=== PATIENT | female | born 1940 | race Caucasian/White ===

== ENCOUNTER 2017-06-18 02:57 | Inpatient (IN) | payer OTHER ==
[2017-06-18] MEDS: NS 1000 ML 1,000 ML IV SCH (05:02)
[2017-06-18] MEDS: SNACK - Diabetic Appropriate PO SCH ×2 (05:02→22:01)
[2017-06-18 06:00] LABS: BASOPHILS # (AUTO) 0.1 X10^3/uL (0.0-0.1); BASOPHILS % (AUTO) 0.6 % (0.2-1.0); EOSINOPHILS % (AUTO) 0.2 % (0.9-2.9); HEMATOCRIT 37.7 % (36.0-47.0); HEMOGLOBIN 12.8 g/dL (12.0-16.0); LYMPHOCYTES # (AUTO) 1.7 X10^3/uL (1.3-2.9); LYMPHOCYTES % (AUTO) 12.1 % (21.0-51.0); MEAN CORPUSCULAR HEMOGLOBIN 30.2 pg (27.0-34.0); MEAN CORPUSCULAR HGB CONC 33.8 g/dL (33.0-35.0); MEAN CORPUSCULAR VOLUME 89.3 fL (80.0-100.0); MEAN PLATELET VOLUME 11.2 fL (7.4-11.0); MONOCYTES # (AUTO) 1.2 x10^3/uL (0.3-0.8); MONOCYTES % (AUTO) 8.5 % (0.0-13.0); NEUTROPHILS # (AUTO) 11.1 x10^3/uL (2.2-4.8); NEUTROPHILS % (AUTO) 78.6 % (42.0-75.0); PLATELET COUNT 304 X10^3/uL (150.0-450.0); RED BLOOD COUNT 4.23 X10^6/uL (3.5-5.4); RED CELL DISTRIBUTION WIDTH 13.7 % (11.6-16.5); WHITE BLOOD COUNT 14.1 X10^3/uL (3.6-10.0)
[2017-06-18 06:22] LABS: ALANINE AMINOTRANSFERASE 23 Units/L (12-78); ALBUMIN 2.9 g/dL (3.4-5.0); ALKALINE PHOSPHATASE 76 Units/L (46-116); ASPARTATE AMINO TRANSFERASE 14 Units/L (15-37); BLOOD UREA NITROGEN 21 mg/dL (7-18); CALCIUM 7.9 mg/dL (8.5-10.1); CHLORIDE 105 mmol/L (98-107); COR CA(FOR HYPOALB) 8.8 mg/dL (8.5-10.1); COR NA(FOR HYPERGLY) 144 mmol/L (136-145); CREATININE 0.72 mg/dL (0.55-1.02); SODIUM 140 mmol/L (136-145); TOTAL PROTEIN 6.8 g/dL (6.4-8.2); eGFR BLACK RACES > 60 (>60); eGFR NON BLACK RACES > 60 (>60)
--- NOTE | 2017-06-18 07:31 | RAD ---
HISTORY: 77-year-old female with shortness of breath. Study: Frontal view of the chest. Comparison: None. Findings: The trachea is midline. The cardiac silhouette is unremarkable with prominent perihilar lung marking s and interstitium. The lungs are clear without focal consolidation, effusion or pneumothorax. Soft tissues are unremarkable. Osseous structures are unremarkable. IMPRESSION: 1. No acute cardiopulmonary disease. Reported By:
[2017-06-18] MEDS ORDERED: BUTT CREAM (COMPOUND) ONE (09:38)
--- NOTE | 2017-06-18 10:21 | DR.H&P ---
H&P - History & Physical for Day of: H&P Date: 06/18/18 - Chief Complaint Chief Complaint: FALL RIGHT UPPER ARM PAIN, RIGHT KNEE PAIN - Allergies Allergies/Adverse Reactions: Allergies Allergy/AdvReac Type Severity Reaction Status Date / Time No Known Drug Allergies Allergy Verified 06/18/17 04:06 - History of Present Illness History of Present Illness: 77WF STATES SHE FELL WHILE RUNNING TO ANSWER TELEPHONE AND TRIPPED OVER A BOX LANDING ON RIGHT KNEE AND RIGHT ARM. PT HAS RUE EDEMA AND PAIN. PT WAS SENT FOR [facility] FOR ORTHO CONSULT, WITH RIGHT HUMERUS FX. PT HAS PMH OF DM, OA. PT ADMITTED FOR PAIN CONTROL AND ORTHO CONSULT - Past Surgical History Surgical History: Hysterectomy, Ortho Surgery, Spleenectomy Additional Surgical History: SPLEENECTOMY - Social History Does patient currently use any type of tobacco product: No Have you used tobacco products in the last 12 months: No Type of Tobacco Use: None Does any household member use tobacco: No Alcohol Use: None Drug Use: None - Medications Home Medications: Insulin NPL/Lispro 75/25 [HumaLOG MIX 75/25 INSULIN 10 ML VIAL *] 10 units SQ DAILY 06/18/17 [History Confirmed 06/18/17] - Review of Systems Constitutional: No Symptoms Reported Eyes: No Symptoms Reported ENT: No Symptoms Reported Respiratory: No Symptoms Reported Cardiovascular: No Symptoms Reported. denies: Edema Gastrointestinal: No Symptoms Reported Genitourinary: No Symptoms Reported Musculoskeletal: Shoulder Pain, Arm Pain, Leg Pain Skin: Rash (RED RASH TO INGUINAL AREA) Neurological: No Symptoms Reported - Physical Exam Vital Signs: Temperature 98.0 F Pulse Rate [Left Brachial] 73 Respiratory Rate 16 Blood Pressure [Left Arm] 175/72 O2 Sat by Pulse Oximetry 97 Oriented: Normal Eyes: Normal Ear: Normal Nose: Normal Throat: Normal Respiratory: Clear Throughout Cardiovascular: Normal : Normal Auscultation: Bowel Sounds: Normal Palpation: Normal Tenderness: Normal Skin: Rash (RED MACULAR PAPULAR RASH TO BILATERAL INGUINAL AREAS) Musculoskeletal: Right, Shoulder, Arm, Knee, Swelling, Tender Psychiatric: Anxiety Affect: Anxious Speech Pattern: Clear, Appropriate - Assessment/Plan (1) Right humeral fracture Status: Acute Plan: PAIN CONTROL, ORTHO CONSULT (2) Fall Status: Acute (3) Diabetes Status: Acute Plan: SSI
--- NOTE | 2017-06-18 12:49 | RAD ---
SHOULDER RADIOGRAPHS CLINICAL HISTORY: 77-year-old female with right humeral fracture. COMPARISON: None. FINDINGS: Three views of the right shoulder demonstrate comminuted fracture through the surgical neck of the right humerus with mild posterior displacement and subtle impaction. There is significant deg enerative changes about the AC joint. Right lung is clear. Soft tissues demonstrate expected edema ab out the fracture site. IMPRESSION: Comminuted fracture through the surgical neck of the right humerus with surrounding edema. Reported By:
--- NOTE | 2017-06-18 12:53 | RAD ---
KNEE RADIOGRAPHS CLINICAL HISTORY: 77-year-old female status post fall. COMPARISON: None. FINDINGS: Three views of the right knee demonstrate subtle cortical irregularity along the medial asp ect of the tibial plateau suggesting impaction fracture. There is diffuse osteopenia. Medial lateral joint spaces are overall preserved. Mild tricompartmental degenerative change. Small suprapatellar mary alice int effusion with significant soft tissue edema about the knee. Vascular calcifications are present. IMPRESSION: Findings concerning for medial tibial plateau fracture with surrounding edema and small suprapatellar joint effusion. Recommend CT of the right knee for complete evaluation. Reported By:
--- NOTE | 2017-06-18 13:02 | CT ---
HISTORY: 77-year-old female status post fall with humeral fracture. Study: [facility] protocol CT of the right upper extremity. Comparison: Right upper extremity radiographs this date. Technique: Multiple contiguous axial images of the right upper extremity are obtained in bone and sof t tissue windows with coronal and sagittal reformats provided. Findings: Comminuted impacted fracture of the right humerus through the surgical neck with slight medial displa cement of the distal fracture fragment and moderate hemarthrosis. No dislocation. Soft tissue edema s urrounds fracture site. Remaining imaged osseous structures of the shoulder and right thorax are inta ct. Degenerative changes about the AC joint. IMPRESSION: Comminuted impacted fracture of the right humerus through the surgical neck with moderate sized hemar throsis with no dislocation. Soft tissue edema is present. Reported By:
[2017-06-18] MEDS: KENALOG CREAM TOP SCH ×2 (15:30→22:02)
[2017-06-18] MEDS: NYSTATIN POWDER TOP SCH ×2 (15:30→22:01)
[2017-06-18] MEDS: HumuLIN R SC PRN ×2 (17:02→21:51)
[2017-06-18 17:24] LABS: BILIRUBIN,URINE NEGATIVE (NEGATIVE); BLOOD/HEMOGLOBIN,URINE 3+ (NEGATIVE); GLUCOSE, URINE 3+ (NEGATIVE); KETONES,URINE 1+ (NEGATIVE); LEUKOCYTE ESTERASE ,URINE 3+ (NEGATIVE); NITRITES,URINE POSITIVE (NEGATIVE); PROTEIN,URINE 3+ (NEGATIVE); UROBILINOGEN,URINE NORMAL (NORMAL)
[2017-06-18 17:26] LABS: APPEARANCE,URINE CLOUDY (CLEAR); COLOR,URINE YELLOW (YELLOW)
[2017-06-18 17:39] LABS: BACTERIA,URINE 1+ /HPF (NEGATIVE); MUCUS,URINE FEW /HPF (NEGATIVE); SQUAMOUS EPITHELIAL CELL,UR FEW /HPF (NEGATIVE)
[2017-06-18] MEDS ORDERED: K-RIDER 10 MEQ/NS 100 ML 10 MEQ/100 ML BAG IV PRN (19:03)
[2017-06-18] MEDS ORDERED: K-LYTE EFFERVESCENT PO PRN (19:03)
[2017-06-18] MEDS ORDERED: POTASSIUM CHL 60 MEQ/NS 0.45% 500 ML IV PRN (19:03)
[2017-06-18] MEDS ORDERED: POTASSIUM CHL 40 MEQ/NS 0.45% 500 ML IV PRN (19:03)
[2017-06-18] MEDS ORDERED: POTASSIUM CHLORIDE LIQ 20 MEQ UDC PO PRN (19:03)
[2017-06-18] MEDS: PERCOCET TAB 5/325 MG PO PRN (21:45)
--- NOTE | 2017-06-18 22:21 | CT ---
CT right knee without contrast Indication: Possible medial tibial plateau fracture seen on radiography. Technique: Helical images through the right knee without contrast. Coronal and sagittal reformats pro vided. Findings: There is lipohemarthrosis with fat and hemorrhage seen in the suprapatellar pouch. Advanced osteopenia and vascular calcifications noted. Mild patellofemoral and femorotibial degenerative frey ges noted. There is fracture of the distal femur, minimally displaced involving the intercondylar not ch and trochlea see coronal image 28 through 15. Lucency is also seen on axial image 36. Hemorrhage i s seen within the bone marrow along the fracture, see axial image 30. Within the limits of a noncontrast study, the menisci, cruciate ligaments and extensor mechanism appe ar intact. Collateral ligaments appear normal. Impression: 1. Distal femur fracture involving the intercondylar notch and lateral femoral condyles at the articu lar surface of the trochlea, with lipohemarthrosis. 2. Tibial plateau appears intact. Degenerative change, osteopenia, vascular plaque and other findings as above. Orthopedic surgery follow-up recommended. MR imaging may be needed to better characterize the nearly occult distal femur fracture Reported By:
[2017-06-19] MEDS: NS 1000 ML 1,000 ML IV SCH ×2 (00:34→12:31)
[2017-06-19] MEDS: KENALOG CREAM TOP SCH ×3 (05:11→21:31)
[2017-06-19] MEDS: MAGNESIUM SULFATE 1 GM/100 mL PREMIX 1 GM/100 ML BAG IV PRN ×2 (05:38→06:36)
[2017-06-19 07:11] LABS: BASOPHILS % (AUTO) 0.4 % (0.2-1.0); EOSINOPHILS # (AUTO) 0.4 x10^3/uL (0.0-0.2); EOSINOPHILS % (AUTO) 2.9 % (0.9-2.9); HEMATOCRIT 34.2 % (36.0-47.0); HEMOGLOBIN 11.4 g/dL (12.0-16.0); LYMPHOCYTES # (AUTO) 2.2 X10^3/uL (1.3-2.9); LYMPHOCYTES % (AUTO) 17.6 % (21.0-51.0); MEAN CORPUSCULAR HGB CONC 33.3 g/dL (33.0-35.0); MEAN CORPUSCULAR VOLUME 90.1 fL (80.0-100.0); MEAN PLATELET VOLUME 10.7 fL (7.4-11.0); MONOCYTES # (AUTO) 1.5 x10^3/uL (0.3-0.8); MONOCYTES % (AUTO) 11.6 % (0.0-13.0); NEUTROPHILS # (AUTO) 8.5 x10^3/uL (2.2-4.8); NEUTROPHILS % (AUTO) 67.5 % (42.0-75.0); PLATELET COUNT 258 X10^3/uL (150.0-450.0); RED BLOOD COUNT 3.79 X10^6/uL (3.5-5.4); WHITE BLOOD COUNT 12.6 X10^3/uL (3.6-10.0)
[2017-06-19 07:19] LABS: ALANINE AMINOTRANSFERASE 19 Units/L (12-78); ALBUMIN 2.6 g/dL (3.4-5.0); ALKALINE PHOSPHATASE 68 Units/L (46-116); ASPARTATE AMINO TRANSFERASE 13 Units/L (15-37); BLOOD UREA NITROGEN 15 mg/dL (7-18); CALCIUM 7.6 mg/dL (8.5-10.1); CARBON DIOXIDE 23.7 mmol/L (21-32); CHLORIDE 107 mmol/L (98-107); COR CA(FOR HYPOALB) 8.7 mg/dL (8.5-10.1); COR NA(FOR HYPERGLY) 141 mmol/L (136-145); CREATININE 0.62 mg/dL (0.55-1.02); SODIUM 139 mmol/L (136-145); TOTAL PROTEIN 6.4 g/dL (6.4-8.2); eGFR BLACK RACES > 60 (>60); eGFR NON BLACK RACES > 60 (>60)
[2017-06-19] MEDS ORDERED: ANCEF 1 GM IV PREMIX* 1 GM/50 ML BAG IV ONE ×2 (07:22→08:09)
[2017-06-19] MEDS ORDERED: LR 1000 ML IV 1,000 ML IV ONE (07:22)
[2017-06-19] MEDS ORDERED: FENTANYL INJ 250 mcg ONE (07:31)
[2017-06-19] MEDS ORDERED: MARCAINE 0.25% INJ ONE (07:32)
[2017-06-19] MEDS ORDERED: XYLOCAINE 1% and EPINEPHRINE 1:100,000 ONE (07:32)
[2017-06-19] MEDS ORDERED: ANCEF VIAL 1 GM ONE (08:08)
[2017-06-19] MEDS ORDERED: BACTROBAN OINT ONE (08:58)
[2017-06-19 09:05] VITALS: BMI 28.3
[2017-06-19] MEDS ORDERED: NS IRRIGATION 1000 ML 1,000 ML with BACITRACIN VIAL 50,000 UNT IR ONE ×2 (09:08)
[2017-06-19] MEDS ORDERED: ROBINUL ONE (09:09)
[2017-06-19] MEDS ORDERED: QUELICIN (OR ANECTINE) ONE (09:09)
[2017-06-19] MEDS ORDERED: DIPRIVAN VIAL ONE (09:09)
[2017-06-19] MEDS ORDERED: ZOFRAN INJ 4 MG VIAL ONE (09:09)
[2017-06-19] MEDS ORDERED: NEOSTIGMINE INJ ONE (09:09)
[2017-06-19] MEDS ORDERED: NORCURON INJ 10 MG VIAL ONE (09:09)
[2017-06-19] MEDS ORDERED: ULTANE GAS IN ONE (09:09)
[2017-06-19] MEDS ORDERED: XYLOCAINE 2 % (PLAIN) ONE (09:09)
[2017-06-19] MEDS: NYSTATIN POWDER TOP SCH ×3 (10:31→21:31)
--- NOTE | 2017-06-19 11:18 | DR.CONSULT ---
Consult - Consultation for Day of: Date: 06/19/17 - Chief Complaint Chief Complaint: rt shoulder fracture - Allergies Allergies/Adverse Reactions: Allergies Allergy/AdvReac Type Severity Reaction Status Date / Time No Known Drug Allergies Allergy Verified 06/18/17 04:06 - History of Present Illness History of Present Illness: h/o fall and rt shoulder fracture. seen in ER and consult placed for me. - Past Surgical History Surgical History: Hysterectomy, Ortho Surgery, Spleenectomy Additional Surgical History: SPLEENECTOMY - Social History Does patient currently use any type of tobacco product: No Have you used tobacco products in the last 12 months: No Type of Tobacco Use: None Does any household member use tobacco: No Alcohol Use: None Drug Use: None - Medications Home Medications: Insulin NPL/Lispro 75/25 [HumaLOG MIX 75/25 INSULIN 10 ML VIAL *] 10 units SQ DAILY 06/18/17 [History Confirmed 06/18/17] - Physical Exam Vital Signs: Temperature 98.6 F Pulse Rate [Left Brachial] 81 Respiratory Rate 20 Blood Pressure [Left Arm] 184/74 O2 Sat by Pulse Oximetry 95 Musculoskeletal: Right, Shoulder, Swelling, Tender, Instability, Crepitance - Plan Plan: ORIF tomorrow. rt proxial humerus fracture. distal femur - conservative management.
[2017-06-19] MEDS ORDERED: ZOFRAN INJ 4 MG VIAL IVP PRN (11:20)
[2017-06-19] MEDS ORDERED: PHENERGAN INJ 25 MG IVP PRN (11:20)
[2017-06-19] MEDS ORDERED: BENADRYL INJ 50 MG VIAL IVP PRN (11:20)
[2017-06-19] MEDS ORDERED: REGLAN INJ 10 MG VIAL IVP PRN (11:20)
[2017-06-19] MEDS ORDERED: DILAUDID INJ IVP PRN (11:20)
[2017-06-19] MEDS: ROCEPHIN VIAL 1 GM 1 GM in NS 100 ML IV + SPIKE MINIBAG* 100 ML IV SCH ×2 (11:50→12:31)
[2017-06-19] MEDS: MORPHINE SULFATE INJ 2 MG INJ IVP PRN ×2 (12:31→18:05)
--- NOTE | 2017-06-19 13:12 | RAD ---
Exam: Right shoulder three views History: Comminuted fracture involving the proximal right humerus Comparison: Previous right shoulder radiographs from 06/18/2017. Findings: Patient is status post OR high calf of comminuted fracture involving the proximal right humerus. A sc rew and plate fixation device at traverses the fracture site laterally. Skin sharon overlie the shou lder as well. Impression: Status post ORIF of comminuted fracture involving the proximal right humerus. Reported By:
[2017-06-19] MEDS: HumuLIN R SC PRN ×2 (14:10→18:05)
[2017-06-19] MEDS: DILAUDID INJ IVP PRN (19:58)
[2017-06-19] MEDS: SNACK - Diabetic Appropriate PO SCH (21:30)
[2017-06-20] MEDS: MORPHINE SULFATE INJ 2 MG INJ IVP PRN ×2 (00:05→12:17)
[2017-06-20] MEDS: PERCOCET TAB 5/325 MG PO PRN ×2 (01:41→20:37)
[2017-06-20] MEDS: HumuLIN R SC PRN ×4 (05:56→20:38)
[2017-06-20] MEDS: NS 1000 ML 1,000 ML IV SCH ×2 (05:57→13:05)
[2017-06-20 05:58] LABS: BASOPHILS % (AUTO) 0.2 % (0.2-1.0); EOSINOPHILS # (AUTO) 0.1 x10^3/uL (0.0-0.2); EOSINOPHILS % (AUTO) 0.3 % (0.9-2.9); HEMATOCRIT 32.7 % (36.0-47.0); LYMPHOCYTES # (AUTO) 1.4 X10^3/uL (1.3-2.9); MEAN CORPUSCULAR HEMOGLOBIN 30.6 pg (27.0-34.0); MEAN CORPUSCULAR HGB CONC 33.7 g/dL (33.0-35.0); MEAN CORPUSCULAR VOLUME 90.8 fL (80.0-100.0); MEAN PLATELET VOLUME 11.2 fL (7.4-11.0); MONOCYTES # (AUTO) 1.6 x10^3/uL (0.3-0.8); MONOCYTES % (AUTO) 8.8 % (0.0-13.0); NEUTROPHILS # (AUTO) 14.7 x10^3/uL (2.2-4.8); NEUTROPHILS % (AUTO) 82.7 % (42.0-75.0); PLATELET COUNT 238 X10^3/uL (150.0-450.0); RED CELL DISTRIBUTION WIDTH 13.9 % (11.6-16.5); WHITE BLOOD COUNT 17.7 X10^3/uL (3.6-10.0)
[2017-06-20] MEDS: KENALOG CREAM TOP SCH ×3 (05:58→22:25)
[2017-06-20 05:59] LABS: BLOOD UREA NITROGEN 13 mg/dL (7-18); CALCIUM 7.6 mg/dL (8.5-10.1); CARBON DIOXIDE 25.1 mmol/L (21-32); CHLORIDE 104 mmol/L (98-107); COR NA(FOR HYPERGLY) 140 mmol/L (136-145); CREATININE 0.61 mg/dL (0.55-1.02); MAGNESIUM 1.7 mg/dL (1.7-2.9); SODIUM 137 mmol/L (136-145); eGFR BLACK RACES > 60 (>60); eGFR NON BLACK RACES > 60 (>60)
[2017-06-20] MEDS: ROCEPHIN VIAL 1 GM 1 GM in NS 100 ML IV + SPIKE MINIBAG* 100 ML IV SCH (08:47)
[2017-06-20] MEDS: NYSTATIN POWDER TOP SCH ×2 (08:47→20:39)
[2017-06-20] MEDS: MAGNESIUM SULFATE 1 GM/100 mL PREMIX 1 GM/100 ML BAG IV PRN ×2 (11:45→13:01)
--- NOTE | 2017-06-20 13:41 | PCM.PROG ---
Progress Note - Progress Note for Day of Date: 06/20/17 - Subjective Subjective: 77WF S/P R HUMERUS FRACTURE REPAIR PER DR CASTAÑEDA. PT HAS UTI, MICRO REPORT ECOLI, PT CURRENTLY ON IV ROCEPHIN, WILL ADD LEVAQUIN. PT WILL CONTINUE POST OPERATIVE PLAN OF CARE, PHYSICAL THERAPY, PAIN CONTROL - Past Medical Family Social History Past Med/Fam/Surg Hx: No changes since H&P Allergies: Allergies No Known Drug Allergies Allergy (Verified 06/18/17 04:06) - Review of Systems ROS: No change since H&P - Vital Signs and I&O's Vital Signs: Temperature 98.2 F Pulse Rate [Left Brachial] 86 Pulse Rate 94 Respiratory Rate 20 Blood Pressure [Left Arm] 144/63 Blood Pressure 163/70 O2 Sat by Pulse Oximetry 98 Intake and Output: Intake & Output 06/18/17 06/19/17 06/20/17 06/21/17 11:59 11:59 11:59 11:59 Intake Total 350 1190 1158 Output Total 50 Balance 350 1190 1108 - Physical Exam Oriented: Normal Eyes: Normal Ear: Normal Nose: Normal Throat: Normal Cardiovascular: Normal : Normal Auscultation: Bowel Sounds: Normal Tenderness: Normal Skin: Normal, Wound (RUE) Musculoskeletal: Right, Shoulder, Swelling, Tender Psychiatric: Anxiety Mood Description: Calm Affect: Anxious Speech Pattern: Clear, Appropriate - Laboratory and Diagnostics Result Diagrams: 06/20/17 05:10 06/20/17 05:10 Labs: 06/18/17 17:14 Urine,Catheterized Urine Culture - Final Escherichia Coli Laboratory WBC 17.7 X10^3/uL (3.6-10.0) H 06/20/17 05:10 RBC 3.60 X10^6/uL (3.5-5.4) 06/20/17 05:10 Hgb 11.0 g/dL (12.0-16.0) L 06/20/17 05:10 Hct 32.7 % (36.0-47.0) L 06/20/17 05:10 MCV 90.8 fL (80.0-100.0) 06/20/17 05:10 MCH 30.6 pg (27.0-34.0) 06/20/17 05:10 MCHC 33.7 g/dL (33.0-35.0) 06/20/17 05:10 RDW 13.9 % (11.6-16.5) 06/20/17 05:10 Plt Count 238 X10^3/uL (150.0-450.0) 06/20/17 05:10 MPV 11.2 fL (7.4-11.0) H 06/20/17 05:10 Neut % (Auto) 82.7 % (42.0-75.0) H 06/20/17 05:10 Lymph % (Auto) 8.0 % (21.0-51.0) L 06/20/17 05:10 [place] % (Auto) 8.8 % (0.0-13.0) 06/20/17 05:10 Eos % (Auto) 0.3 % (0.9-2.9) L 06/20/17 05:10 Baso % (Auto) 0.2 % (0.2-1.0) 06/20/17 05:10 Neut # (Auto) 14.7 x10^3/uL (2.2-4.8) H 06/20/17 05:10 Lymph # (Auto) 1.4 X10^3/uL (1.3-2.9) 06/20/17 05:10 [place] # (Auto) 1.6 x10^3/uL (0.3-0.8) H 06/20/17 05:10 Eos # (Auto) 0.1 x10^3/uL (0.0-0.2) 06/20/17 05:10 Baso # (Auto) 0.0 X10^3/uL (0.0-0.1) 06/20/17 05:10 Absolute Nucleated RBC 0.1 /100WBC 06/20/17 05:10 Sodium 137 mmol/L (136-145) 06/20/17 05:10 Corrected Sodium 140 mmol/L (136-145) 06/20/17 05:10 Potassium 4.0 mmol/L (3.5-5.1) 06/20/17 05:10 Chloride 104 mmol/L (98-107) 06/20/17 05:10 Carbon Dioxide 25.1 mmol/L (21-32) 06/20/17 05:10 BUN 13 mg/dL (7-18) 06/20/17 05:10 Creatinine 0.61 mg/dL (0.55-1.02) 06/20/17 05:10 Est GFR (MDRD) Af Amer > 60 (>60) 06/20/17 05:10 Est GFR (MDRD) Non-Af > 60 (>60) 06/20/17 05:10 Glucose 230 mg/dL (65-99) H 06/20/17 05:10 POC Glucose (mg/dL) 281 mg/dL (65-99) H 06/20/17 11:33 Hemoglobin A1c 6.2 % 06/18/17 05:25 Calcium 7.6 mg/dL (8.5-10.1) L 06/20/17 05:10 Corrected Calcium 8.7 mg/dL (8.5-10.1) 06/19/17 06:55 Magnesium 1.7 mg/dL (1.7-2.9) 06/20/17 05:10 Total Bilirubin 0.60 mg/dL (0.2-1.0) 06/19/17 06:55 AST 13 Units/L (15-37) L 06/19/17 06:55 ALT 19 Units/L (12-78) 06/19/17 06:55 Alkaline Phosphatase 68 Units/L (46-116) 06/19/17 06:55 Total Protein 6.4 g/dL (6.4-8.2) 06/19/17 06:55 Albumin 2.6 g/dL (3.4-5.0) L 06/19/17 06:55 Globulin 3.8 g/dL (2.5-4.5) 06/19/17 06:55 Albumin/Globulin Ratio 0.7 Ratio (1.1-2.1) L 06/19/17 06:55 Specimen Type Catherized urine 06/18/17 17:14 Urine Color Yellow (YELLOW) 06/18/17 17:14 Urine Appearance Cloudy (CLEAR) 06/18/17 17:14 Urine pH 5.0 (5.0 - 8.0) 06/18/17 17:14 Ur Specific [place] 1.025 (1.000-1.030) 06/18/17 17:14 Urine Protein 3+ (NEGATIVE) 04/01/18 17:14 Urine Glucose (UA) 3+ (NEGATIVE) 06/18/17 17:14 Urine Ketones 1+ (NEGATIVE) 06/18/17 17:14 Urine Occult Blood 3+ (NEGATIVE) 06/18/17 17:14 Urine Nitrite Positive (NEGATIVE) 06/18/17 17:14 Urine Bilirubin Negative (NEGATIVE) 06/18/17 17:14 Urine Urobilinogen Normal (NORMAL) 06/18/17 17:14 Ur Leukocyte Esterase 3+ (NEGATIVE) 06/18/17 17:14 Urine RBC 5-10 /HPF (NONE SEEN) 06/18/17 17:14 Urine WBC Tntc /HPF (NONE SEEN) 06/18/17 17:14 Ur Squamous Epith Cells Few /HPF (NEGATIVE) 06/18/17 17:14 Urine Bacteria 1+ /HPF (NEGATIVE) 06/18/17 17:14 Urine Mucus Few /HPF (NEGATIVE) 06/18/17 17:14 Ur Culture Indicated? Yes/culture set up 06/18/17 17:14 Blood Type A POSITIVE 06/19/17 07:49 Antibody Screen Negative 06/19/17 07:49 - Plan (1) Right humeral fracture Status: Acute Plan: PAIN CONTROL, ORTHO CONSULT, PHYSICAL THERAPY. POST OP INSTRUCTIONS PER DR CASTAÑEDA (2) Fall Status: Acute (3) Diabetes Status: Acute Plan: SSI (4) UTI (urinary tract infection) Status: Acute Plan: IV ROCEPHIN AND LEVAQUIN
[2017-06-20] MEDS: LEVAQUIN PREMIX IV 500 MG 500 MG/100 ML BAG IV SCH (14:07)
[2017-06-20] MEDS: SNACK - Diabetic Appropriate PO SCH (20:39)
[2017-06-21] MEDS: HumuLIN R SC PRN ×4 (06:07→20:24)
[2017-06-21] MEDS: KENALOG CREAM TOP SCH ×3 (06:08→22:01)
[2017-06-21] MEDS: NS 1000 ML 1,000 ML IV SCH (06:08)
[2017-06-21 06:17] LABS: BASOPHILS # (AUTO) 0.1 X10^3/uL (0.0-0.1); BASOPHILS % (AUTO) 0.5 % (0.2-1.0); EOSINOPHILS # (AUTO) 0.3 x10^3/uL (0.0-0.2); EOSINOPHILS % (AUTO) 2.4 % (0.9-2.9); HEMATOCRIT 30.5 % (36.0-47.0); HEMOGLOBIN 10.4 g/dL (12.0-16.0); LYMPHOCYTES # (AUTO) 1.6 X10^3/uL (1.3-2.9); LYMPHOCYTES % (AUTO) 12.8 % (21.0-51.0); MEAN CORPUSCULAR HEMOGLOBIN 30.8 pg (27.0-34.0); MEAN CORPUSCULAR HGB CONC 34.1 g/dL (33.0-35.0); MEAN CORPUSCULAR VOLUME 90.6 fL (80.0-100.0); MEAN PLATELET VOLUME 11.4 fL (7.4-11.0); MONOCYTES # (AUTO) 1.3 x10^3/uL (0.3-0.8); MONOCYTES % (AUTO) 10.5 % (0.0-13.0); NEUTROPHILS # (AUTO) 9.2 x10^3/uL (2.2-4.8); NEUTROPHILS % (AUTO) 73.8 % (42.0-75.0); PLATELET COUNT 246 X10^3/uL (150.0-450.0); RED BLOOD COUNT 3.37 X10^6/uL (3.5-5.4); RED CELL DISTRIBUTION WIDTH 13.7 % (11.6-16.5); WHITE BLOOD COUNT 12.4 X10^3/uL (3.6-10.0)
[2017-06-21 06:36] LABS: BLOOD UREA NITROGEN 14 mg/dL (7-18); CALCIUM 7.7 mg/dL (8.5-10.1); CARBON DIOXIDE 27.5 mmol/L (21-32); CHLORIDE 103 mmol/L (98-107); COR NA(FOR HYPERGLY) 139 mmol/L (136-145); CREATININE 0.59 mg/dL (0.55-1.02); MAGNESIUM 1.9 mg/dL (1.7-2.9); SODIUM 138 mmol/L (136-145); eGFR BLACK RACES > 60 (>60); eGFR NON BLACK RACES > 60 (>60)
[2017-06-21] MEDS: LEVAQUIN PREMIX IV 500 MG 500 MG/100 ML BAG IV SCH (09:32)
[2017-06-21] MEDS: NYSTATIN POWDER TOP SCH ×2 (09:32→20:21)
[2017-06-21] MEDS: ROCEPHIN VIAL 1 GM 1 GM in NS 100 ML IV + SPIKE MINIBAG* 100 ML IV SCH (09:32)
[2017-06-21] MEDS: PERCOCET TAB 5/325 MG PO PRN (11:38)
--- NOTE | 2017-06-21 17:05 | PCM.PROG ---
Progress Note - Progress Note for Day of Date: 06/21/17 - Subjective Subjective: 77WF S/P R HUMERUS FRACTURE REPAIR PER DR CASTAÑEDA. PT HAS UTI, MICRO REPORT ECOLI, PT CURRENTLY ON IV ROCEPHIN AND LEVAQUIN. PT WILL CONTINUE POST OPERATIVE PLAN OF CARE, PHYSICAL THERAPY, PAIN CONTROL - Past Medical Family Social History Past Med/Fam/Surg Hx: No changes since H&P Allergies: Allergies No Known Drug Allergies Allergy (Verified 06/18/17 04:06) - Review of Systems ROS: No change since H&P - Vital Signs and I&O's Vital Signs: Temperature 98.7 F Pulse Rate [Left Brachial] 102 Pulse Rate 94 Respiratory Rate 20 Blood Pressure [Left Arm] 131/59 Blood Pressure 163/70 O2 Sat by Pulse Oximetry 92 Intake and Output: Intake & Output 06/19/17 06/20/17 06/21/17 06/22/17 11:59 11:59 11:59 11:59 Intake Total 1190 1158 1198 240 Output Total 50 Balance 1190 1108 1198 240 - Physical Exam Oriented: Normal Eyes: Normal Ear: Normal Nose: Normal Throat: Normal Respiratory: Diminished Cardiovascular: Normal : Normal Auscultation: Bowel Sounds: Normal Tenderness: Normal Skin: Normal, Wound (RUE) Musculoskeletal: Right, Shoulder, Swelling, Tender Psychiatric: Anxiety Mood Description: Calm Affect: Anxious Speech Pattern: Clear, Appropriate - Laboratory and Diagnostics Result Diagrams: 06/21/17 05:20 06/21/17 05:20 Labs: 06/18/17 17:14 Urine,Catheterized Urine Culture - Final Escherichia Coli Laboratory WBC 12.4 X10^3/uL (3.6-10.0) H 06/21/17 05:20 RBC 3.37 X10^6/uL (3.5-5.4) L 06/21/17 05:20 Hgb 10.4 g/dL (12.0-16.0) L 06/21/17 05:20 Hct 30.5 % (36.0-47.0) L 06/21/17 05:20 MCV 90.6 fL (80.0-100.0) 06/21/17 05:20 MCH 30.8 pg (27.0-34.0) 06/21/17 05:20 MCHC 34.1 g/dL (33.0-35.0) 06/21/17 05:20 RDW 13.7 % (11.6-16.5) 06/21/17 05:20 Plt Count 246 X10^3/uL (150.0-450.0) 06/21/17 05:20 MPV 11.4 fL (7.4-11.0) H 06/21/17 05:20 Neut % (Auto) 73.8 % (42.0-75.0) 06/21/17 05:20 Lymph % (Auto) 12.8 % (21.0-51.0) L 06/21/17 05:20 [place] % (Auto) 10.5 % (0.0-13.0) 06/21/17 05:20 Eos % (Auto) 2.4 % (0.9-2.9) 06/21/17 05:20 Baso % (Auto) 0.5 % (0.2-1.0) 06/21/17 05:20 Neut # (Auto) 9.2 x10^3/uL (2.2-4.8) H 06/21/17 05:20 Lymph # (Auto) 1.6 X10^3/uL (1.3-2.9) 06/21/17 05:20 [place] # (Auto) 1.3 x10^3/uL (0.3-0.8) H 06/21/17 05:20 Eos # (Auto) 0.3 x10^3/uL (0.0-0.2) H 06/21/17 05:20 Baso # (Auto) 0.1 X10^3/uL (0.0-0.1) 06/21/17 05:20 Absolute Nucleated RBC 0.1 /100WBC 06/21/17 05:20 Sodium 138 mmol/L (136-145) 06/21/17 05:20 Corrected Sodium 139 mmol/L (136-145) 06/21/17 05:20 Potassium 3.6 mmol/L (3.5-5.1) 06/21/17 05:20 Chloride 103 mmol/L (98-107) 06/21/17 05:20 Carbon Dioxide 27.5 mmol/L (21-32) 06/21/17 05:20 BUN 14 mg/dL (7-18) 06/21/17 05:20 Creatinine 0.59 mg/dL (0.55-1.02) 06/21/17 05:20 Est GFR (MDRD) Af Amer > 60 (>60) 06/21/17 05:20 Est GFR (MDRD) Non-Af > 60 (>60) 06/21/17 05:20 Glucose 162 mg/dL (65-99) H 06/21/17 05:20 POC Glucose (mg/dL) 177 mg/dL (65-99) H 06/21/17 16:14 Hemoglobin A1c 6.2 % 06/18/17 05:25 Calcium 7.7 mg/dL (8.5-10.1) L 06/21/17 05:20 Corrected Calcium 8.7 mg/dL (8.5-10.1) 06/19/17 06:55 Magnesium 1.9 mg/dL (1.7-2.9) 06/21/17 05:20 Total Bilirubin 0.60 mg/dL (0.2-1.0) 06/19/17 06:55 AST 13 Units/L (15-37) L 06/19/17 06:55 ALT 19 Units/L (12-78) 06/19/17 06:55 Alkaline Phosphatase 68 Units/L (46-116) 06/19/17 06:55 Total Protein 6.4 g/dL (6.4-8.2) 06/19/17 06:55 Albumin 2.6 g/dL (3.4-5.0) L 06/19/17 06:55 Globulin 3.8 g/dL (2.5-4.5) 06/19/17 06:55 Albumin/Globulin Ratio 0.7 Ratio (1.1-2.1) L 06/19/17 06:55 Specimen Type Catherized urine 06/18/17 17:14 Urine Color Yellow (YELLOW) 06/18/17 17:14 Urine Appearance Cloudy (CLEAR) 06/18/17 17:14 Urine pH 5.0 (5.0 - 8.0) 06/18/17 17:14 Ur Specific [place] 1.025 (1.000-1.030) 06/18/17 17:14 Urine Protein 3+ (NEGATIVE) 06/18/17 17:14 Urine Glucose (UA) 3+ (NEGATIVE) 06/18/17 17:14 Urine Ketones 1+ (NEGATIVE) 06/18/17 17:14 Urine Occult Blood 3+ (NEGATIVE) 06/18/17 17:14 Urine Nitrite Positive (NEGATIVE) 06/18/17 17:14 Urine Bilirubin Negative (NEGATIVE) 06/18/17 17:14 Urine Urobilinogen Normal (NORMAL) 06/18/17 17:14 Ur Leukocyte Esterase 3+ (NEGATIVE) 06/18/17 17:14 Urine RBC 5-10 /HPF (NONE SEEN) 06/18/17 17:14 Urine WBC Tntc /HPF (NONE SEEN) 06/18/17 17:14 Ur Squamous Epith Cells Few /HPF (NEGATIVE) 06/18/17 17:14 Urine Bacteria 1+ /HPF (NEGATIVE) 06/18/17 17:14 Urine Mucus Few /HPF (NEGATIVE) 06/18/17 17:14 Ur Culture Indicated? Yes/culture set up 06/18/17 17:14 Blood Type A POSITIVE 06/19/17 07:49 Antibody Screen Negative 06/19/17 07:49 - Plan (1) Right humeral fracture Status: Acute Plan: PAIN CONTROL, ORTHO CONSULT, PHYSICAL THERAPY. POST OP INSTRUCTIONS PER DR CASTAÑEDA (2) Fall Status: Acute (3) Diabetes Status: Acute Plan: SSI (4) UTI (urinary tract infection) Status: Acute Plan: IV ROCEPHIN AND LEVAQUIN
[2017-06-21] MEDS: SNACK - Diabetic Appropriate PO SCH (20:22)
[2017-06-22] MEDS: NS 1000 ML 1,000 ML IV SCH (03:40)
[2017-06-22 05:35] LABS: BLOOD UREA NITROGEN 14 mg/dL (7-18); CALCIUM 7.3 mg/dL (8.5-10.1); CHLORIDE 103 mmol/L (98-107); COR NA(FOR HYPERGLY) 142 mmol/L (136-145); CREATININE 0.54 mg/dL (0.55-1.02); SODIUM 140 mmol/L (136-145); eGFR BLACK RACES > 60 (>60); eGFR NON BLACK RACES > 60 (>60)
[2017-06-22 05:41] LABS: BASOPHILS % (AUTO) 0.2 % (0.2-1.0); EOSINOPHILS # (AUTO) 0.3 x10^3/uL (0.0-0.2); EOSINOPHILS % (AUTO) 2.4 % (0.9-2.9); HEMATOCRIT 29.9 % (36.0-47.0); HEMOGLOBIN 10.1 g/dL (12.0-16.0); LYMPHOCYTES # (AUTO) 1.8 X10^3/uL (1.3-2.9); LYMPHOCYTES % (AUTO) 15.2 % (21.0-51.0); MEAN CORPUSCULAR HEMOGLOBIN 30.3 pg (27.0-34.0); MEAN CORPUSCULAR HGB CONC 33.9 g/dL (33.0-35.0); MEAN CORPUSCULAR VOLUME 89.4 fL (80.0-100.0); MEAN PLATELET VOLUME 10.9 fL (7.4-11.0); MONOCYTES # (AUTO) 1.4 x10^3/uL (0.3-0.8); MONOCYTES % (AUTO) 11.5 % (0.0-13.0); NEUTROPHILS # (AUTO) 8.3 x10^3/uL (2.2-4.8); NEUTROPHILS % (AUTO) 70.7 % (42.0-75.0); PLATELET COUNT 270 X10^3/uL (150.0-450.0); RED BLOOD COUNT 3.34 X10^6/uL (3.5-5.4); RED CELL DISTRIBUTION WIDTH 13.7 % (11.6-16.5); WHITE BLOOD COUNT 11.7 X10^3/uL (3.6-10.0)
[2017-06-22] MEDS: KENALOG CREAM TOP SCH ×3 (05:41→22:12)
[2017-06-22] MEDS: NYSTATIN POWDER TOP SCH ×2 (09:00→20:33)
[2017-06-22] MEDS: LEVAQUIN PREMIX IV 500 MG 500 MG/100 ML BAG IV SCH (09:04)
[2017-06-22] MEDS: ROCEPHIN VIAL 1 GM 1 GM in NS 100 ML IV + SPIKE MINIBAG* 100 ML IV SCH (09:04)
[2017-06-22] MEDS: PERCOCET TAB 5/325 MG PO PRN ×3 (09:05→17:30)
[2017-06-22] MEDS: HumuLIN R SC PRN ×3 (12:08→20:32)
[2017-06-22] MEDS: SNACK - Diabetic Appropriate PO SCH (20:33)
[2017-06-23] MEDS: NS 1000 ML 1,000 ML IV SCH (00:30)
[2017-06-23] MEDS: PERCOCET TAB 5/325 MG PO PRN ×3 (01:25→21:17)
[2017-06-23] MEDS ORDERED: COLACE CAP 100 MG PO PRN (02:41)
[2017-06-23] MEDS ORDERED: MILK OF MAGNESIA PO PRN (02:41)
[2017-06-23] MEDS: DILAUDID INJ IVP PRN (04:05)
[2017-06-23 05:23] LABS: BASOPHILS # (AUTO) 0.1 X10^3/uL (0.0-0.1); BASOPHILS % (AUTO) 0.4 % (0.2-1.0); EOSINOPHILS # (AUTO) 0.5 x10^3/uL (0.0-0.2); EOSINOPHILS % (AUTO) 3.6 % (0.9-2.9); HEMATOCRIT 31.3 % (36.0-47.0); HEMOGLOBIN 10.5 g/dL (12.0-16.0); LYMPHOCYTES # (AUTO) 2.5 X10^3/uL (1.3-2.9); LYMPHOCYTES % (AUTO) 19.9 % (21.0-51.0); MEAN CORPUSCULAR HEMOGLOBIN 30.2 pg (27.0-34.0); MEAN CORPUSCULAR HGB CONC 33.6 g/dL (33.0-35.0); MEAN PLATELET VOLUME 10.9 fL (7.4-11.0); MONOCYTES # (AUTO) 1.3 x10^3/uL (0.3-0.8); MONOCYTES % (AUTO) 10.4 % (0.0-13.0); NEUTROPHILS # (AUTO) 8.4 x10^3/uL (2.2-4.8); NEUTROPHILS % (AUTO) 65.7 % (42.0-75.0); PLATELET COUNT 318 X10^3/uL (150.0-450.0); RED BLOOD COUNT 3.48 X10^6/uL (3.5-5.4); RED CELL DISTRIBUTION WIDTH 13.6 % (11.6-16.5); WHITE BLOOD COUNT 12.8 X10^3/uL (3.6-10.0)
[2017-06-23 05:29] LABS: ALANINE AMINOTRANSFERASE 14 Units/L (12-78); ALKALINE PHOSPHATASE 65 Units/L (46-116); ASPARTATE AMINO TRANSFERASE 12 Units/L (15-37); BLOOD UREA NITROGEN 15 mg/dL (7-18); CALCIUM 7.8 mg/dL (8.5-10.1); CHLORIDE 103 mmol/L (98-107); COR CA(FOR HYPOALB) 9.4 mg/dL (8.5-10.1); COR NA(FOR HYPERGLY) 142 mmol/L (136-145); CREATININE 0.57 mg/dL (0.55-1.02); SODIUM 139 mmol/L (136-145); TOTAL PROTEIN 6.2 g/dL (6.4-8.2); eGFR BLACK RACES > 60 (>60); eGFR NON BLACK RACES > 60 (>60)
[2017-06-23] MEDS: KENALOG CREAM TOP SCH ×3 (05:38→21:17)
[2017-06-23] MEDS: HumuLIN R SC PRN ×3 (05:40→20:03)
[2017-06-23] MEDS: MAGNESIUM SULFATE 1 GM/100 mL PREMIX 1 GM/100 ML BAG IV PRN ×2 (06:37→14:01)
[2017-06-23] MEDS: ROCEPHIN VIAL 1 GM 1 GM in NS 100 ML IV + SPIKE MINIBAG* 100 ML IV SCH (08:23)
[2017-06-23] MEDS: NYSTATIN POWDER TOP SCH ×2 (08:31→20:04)
[2017-06-23] MEDS: LEVAQUIN PREMIX IV 500 MG 500 MG/100 ML BAG IV SCH (09:58)
--- NOTE | 2017-06-23 10:06 | OR.GENERIC ---
Post-Op Note Generic - Post-Op Note Operative Report: preoperative diagnosis- right shoulder proximal humerus fracture, closed, comminuted, 2-part Postoperative diagnosis-right shoulder proximal humerus fracture, closed, corrected, three-part Procedure-right shoulder open reduction and fixation of proximal humerus fracture with plates and screws. Date of frpvfps-7-5-2018 implant used-[employer] lock compression plating Indication-patient sent 7-year-old female had a history of fall at home. She fractured her right proximal humerus. She was seen in the emergency room. She was admitted under medical and consultation knee. History was again confirmed.examination was completed. X-rays and CT scan showed a two-part fracture.natural history treatment discussions were done with him. They wanted to proceed with the open reduction and fixation with a locked compression plating. They were taken to the procedure in detail. Pre-and post surgery was discussed with him. Complications including but not limited to infection, osteomyelitis, axillary nerve injury, avascular necrosis, malunion, nonunion, arthritis of the shoulder, stiffness of the shoulder, need for further procedures were discussed with him. The consents and wanted to proceed with the surgery Preoperative-patient was seen in the preop holding area. The right limb was marked. Consent was again revisited. Patient was met with the owner/operator. The patient got a regional block. Patient got appropriate antibiotic. Procedure-the patient was brought to the operating room. Patient was placed supine on the operating table. Gen. anesthesia was induced and successful endotracheal intubation was completed. Now the patient was placed in the beachchair position. Right upper limb prepped and draped. An lateral approach to the proximal humerus was used. An incision about 7 cm starting from the tip of the acromion was placed on the lateral aspect of the proximal shoulder. Dissection was carried down through the saphenous tissue to expose the deltoid. Flaps were elevated both medially and laterally. Self-retaining distractors were placed. The graft site in the anterolateral aspect of the deltoid was identified and the plane developed. The plane was developed in about 3-4 cm from the acromion. The axillary nerve was identified by palpation and the lumbrical tape was placed around it and protecting it throughout the case. Dissection distal to this was completed to expose the humeral shaft. The subacromial bursa was excised in total. The supraspinous tendon could not be isolated and there was a complete tear noted in the supraspinatus tendon. There was an greater tuberosity fracture too which was not identified on CT scan. It is fairly undisplaced. Multiple sutures were passed through musculotendinous junction and subscapularis, infraspinatus. Ethibond #5 was used. Impaction at the fracture site was noted. Significant osteoporosis was noted. The impaction was elevated with help of a test elevator. Bone graft was packed underneath that. The tuberosities were reduced using the sutures and were tied down holding the reduction. The images were checked in AP and lateral using the C-arm. The tuberosities and the humeral head had produced. The shaft was still displaced medially. A bone clamp was placed around the humeral shaft through the distal opening in the deltoid. Lateral traction was applied to the reduced fracture. It was found to the satisfactory. Multiple K wires were placed from distally to proximally, anteriorly to the proposed plate placement. These are found to be satisfactory reduction which was checked in AP and lateral C-arm images. Another set of Ethibond sutures were passed through the tendons. The proposed to hole plate was chosen and the sutures were passed proximally through the suture holes. The plate was fixed to the proximal humerus with multiple K wires. Despite sure that the plate is another to the proximal or distal prevent any impingement. The proximal holes were filled in a locking mode. The lateral cortex was opened with a sleeve and drill. a depth which was passed into the subchondral region to measure the screw length for each of the screws. This was repeated for every single screw. There was still a little of medial displacement of the shaft. So an nonlocking screw was used and there shaft position to hold the shaft to the plate. The rest of the screws in the shaft were placed in locking mode. Again throughout the procedure and the axillary neurovascular bundle was identified and protected. The images were checked again and the shoulder was brought through range of motion and was found to be stable fixation. Thorough irrigation was done. Deltoid was closed with interrupted sutures. Subtendinous tissue was closed with barbed wire. Allison were applied. Sterile dressing was applied. Shoulder immobilizer was applied. Postoperative-patient was woken up from the general anesthesia, successfully extubated. Patient quite loose with stable, afebrile and pain well controlled. She will shift to the PACU. Postoperative images were obtained. Intact distal neurovascular examination. Postoperative x-rays showed a well aligned and fixed proximal humerus fracture. The family was updated about the plan.
--- NOTE | 2017-06-23 10:22 | MRI ---
MRI right knee without contrast. Indication: Right knee pain after fall and abnormal CT Technique: Multiplanar, multi sequence imaging of the right knee without IV contrast administration. Findings: The extensor mechanism is intact; however, there is moderate tendinopathy of the distal ana maria driceps tendon with moderate diffuse fatty change within the superior patella. The patella demonstrat es normal positioning within the femoral trochlea sulcus however the femoral trochlea is slightly hyp oplastic and shallow. There is mild diffuse thinning of the median patellar ridge and medial patellar articular cartilage without full-thickness chondral loss or subchondral bone marrow signal abnormali ty. The medial and lateral retinacular complex are intact. There is no abnormal signal identified wit hin the popliteus muscle or tendon. No popliteal fossa cyst or fluid collection. The pes anserine ten dons are intact. There is a large joint effusion with associated synovitis and hemarthrosis. No defin ite residual fat identified within the joint effusion is identified. There is an obliquely oriented nondisplaced fracture of the distal femur. The fracture extends from t he intercondylar notch to the lateral femoral epicondyle. Within the posterior aspect of the lateral femoral condyle there is a curvilinear decreased T1 and PD signal with surrounding increased PD signa l area seen on sagittal image 8, series 601 which is suspicious for osteonecrosis. The overall extent of suspect osteonecrosis measures 2.0 x 0.9 x 0.5 cm. The lateral femorotibial compartment demonstra simón no localizing subchondral bone marrow edema. There is diffuse thinning of the anterior portion of the lateral femoral condyle articular cartilage. The medial femorotibial compartment demonstrates mi ld chondral thinning however there is no full-thickness or high-grade chondral loss or subchondral jordan ne marrow signal abnormality. The cruciate ligaments are intact. The collateral ligaments are also intact. The lateral meniscus is intact. The medial meniscus is also intact. There is a small osteochondral body measuring approximately 7.5 mm posterior to the PCL on sagittal i mage 15. Impression: 1. Nondisplaced obliquely oriented fracture of the distal femur extending from the lateral femoral ep icondyle into the intercondylar notch. 2. Mild patellofemoral and femorotibial compartment osteoarthrosis with an approximate 7.5 mm osteoch ondral body suspected posterior to the distal PCL. 3. Large suprapatellar joint effusion with synovitis and residual blood products/hemarthrosis. 4. Suspected small area of osteonecrosis within the posterior aspect of the lateral femoral condyle. Reported By:
[2017-06-23] MEDS: SNACK - Diabetic Appropriate PO SCH (20:04)
[2017-06-24] MEDS: NS 1000 ML 1,000 ML IV SCH (01:59)
[2017-06-24] MEDS: PERCOCET TAB 5/325 MG PO PRN ×2 (01:59→20:18)
[2017-06-24 05:42] LABS: BASOPHILS # (AUTO) 0.1 X10^3/uL (0.0-0.1); BASOPHILS % (AUTO) 0.5 % (0.2-1.0); EOSINOPHILS # (AUTO) 0.5 x10^3/uL (0.0-0.2); EOSINOPHILS % (AUTO) 4.2 % (0.9-2.9); HEMATOCRIT 31.8 % (36.0-47.0); HEMOGLOBIN 10.8 g/dL (12.0-16.0); LYMPHOCYTES # (AUTO) 2.7 X10^3/uL (1.3-2.9); LYMPHOCYTES % (AUTO) 23.2 % (21.0-51.0); MEAN CORPUSCULAR HEMOGLOBIN 30.4 pg (27.0-34.0); MEAN CORPUSCULAR HGB CONC 33.9 g/dL (33.0-35.0); MEAN CORPUSCULAR VOLUME 89.7 fL (80.0-100.0); MEAN PLATELET VOLUME 10.3 fL (7.4-11.0); MONOCYTES # (AUTO) 1.3 x10^3/uL (0.3-0.8); MONOCYTES % (AUTO) 10.9 % (0.0-13.0); NEUTROPHILS % (AUTO) 61.2 % (42.0-75.0); PLATELET COUNT 381 X10^3/uL (150.0-450.0); RED BLOOD COUNT 3.54 X10^6/uL (3.5-5.4); RED CELL DISTRIBUTION WIDTH 13.8 % (11.6-16.5); WHITE BLOOD COUNT 11.5 X10^3/uL (3.6-10.0)
[2017-06-24] MEDS: KENALOG CREAM TOP SCH ×3 (05:46→21:22)
[2017-06-24 05:55] LABS: ALANINE AMINOTRANSFERASE 15 Units/L (12-78); ALBUMIN 2.1 g/dL (3.4-5.0); ALKALINE PHOSPHATASE 66 Units/L (46-116); ASPARTATE AMINO TRANSFERASE 12 Units/L (15-37); BLOOD UREA NITROGEN 12 mg/dL (7-18); CALCIUM 7.7 mg/dL (8.5-10.1); CARBON DIOXIDE 30.8 mmol/L (21-32); CHLORIDE 104 mmol/L (98-107); COR CA(FOR HYPOALB) 9.2 mg/dL (8.5-10.1); COR NA(FOR HYPERGLY) 140 mmol/L (136-145); CREATININE 0.59 mg/dL (0.55-1.02); SODIUM 139 mmol/L (136-145); TOTAL PROTEIN 6.2 g/dL (6.4-8.2); eGFR BLACK RACES > 60 (>60); eGFR NON BLACK RACES > 60 (>60)
[2017-06-24] MEDS: NYSTATIN POWDER TOP SCH ×2 (08:47→20:18)
[2017-06-24] MEDS: LEVAQUIN PREMIX IV 500 MG 500 MG/100 ML BAG IV SCH (08:47)
[2017-06-24] MEDS: ROCEPHIN VIAL 1 GM 1 GM in NS 100 ML IV + SPIKE MINIBAG* 100 ML IV SCH (08:47)
[2017-06-24] MEDS: HumuLIN R SC PRN ×3 (12:20→20:17)
[2017-06-24] MEDS: SNACK - Diabetic Appropriate PO SCH (20:17)
[2017-06-25] MEDS: PERCOCET TAB 5/325 MG PO PRN ×4 (00:34→23:00)
[2017-06-25] MEDS: NS 1000 ML 1,000 ML IV SCH (01:14)
[2017-06-25] MEDS: KENALOG CREAM TOP SCH ×3 (05:08→21:27)
[2017-06-25 06:18] LABS: ALANINE AMINOTRANSFERASE 18 Units/L (12-78); ALBUMIN 2.3 g/dL (3.4-5.0); ALKALINE PHOSPHATASE 73 Units/L (46-116); ASPARTATE AMINO TRANSFERASE 17 Units/L (15-37); BLOOD UREA NITROGEN 14 mg/dL (7-18); CALCIUM 8.5 mg/dL (8.5-10.1); CARBON DIOXIDE 29.5 mmol/L (21-32); CHLORIDE 103 mmol/L (98-107); COR CA(FOR HYPOALB) 9.9 mg/dL (8.5-10.1); COR NA(FOR HYPERGLY) 140 mmol/L (136-145); CREATININE 0.62 mg/dL (0.55-1.02); SODIUM 138 mmol/L (136-145); TOTAL PROTEIN 6.5 g/dL (6.4-8.2); eGFR BLACK RACES > 60 (>60); eGFR NON BLACK RACES > 60 (>60)
[2017-06-25 06:23] LABS: BASOPHILS # (AUTO) 0.1 X10^3/uL (0.0-0.1); BASOPHILS % (AUTO) 0.7 % (0.2-1.0); EOSINOPHILS # (AUTO) 0.6 x10^3/uL (0.0-0.2); EOSINOPHILS % (AUTO) 4.3 % (0.9-2.9); HEMATOCRIT 33.8 % (36.0-47.0); HEMOGLOBIN 11.3 g/dL (12.0-16.0); LYMPHOCYTES # (AUTO) 2.6 X10^3/uL (1.3-2.9); LYMPHOCYTES % (AUTO) 19.9 % (21.0-51.0); MEAN CORPUSCULAR HEMOGLOBIN 30.1 pg (27.0-34.0); MEAN CORPUSCULAR HGB CONC 33.5 g/dL (33.0-35.0); MEAN CORPUSCULAR VOLUME 89.7 fL (80.0-100.0); MEAN PLATELET VOLUME 10.3 fL (7.4-11.0); MONOCYTES # (AUTO) 1.2 x10^3/uL (0.3-0.8); MONOCYTES % (AUTO) 9.4 % (0.0-13.0); NEUTROPHILS # (AUTO) 8.4 x10^3/uL (2.2-4.8); NEUTROPHILS % (AUTO) 65.7 % (42.0-75.0); PLATELET COUNT 421 X10^3/uL (150.0-450.0); RED BLOOD COUNT 3.76 X10^6/uL (3.5-5.4); RED CELL DISTRIBUTION WIDTH 13.6 % (11.6-16.5); WHITE BLOOD COUNT 12.8 X10^3/uL (3.6-10.0)
[2017-06-25] MEDS: LEVAQUIN PREMIX IV 500 MG 500 MG/100 ML BAG IV SCH (08:45)
[2017-06-25] MEDS: NYSTATIN POWDER TOP SCH ×2 (08:46→21:14)
[2017-06-25] MEDS: ROCEPHIN VIAL 1 GM 1 GM in NS 100 ML IV + SPIKE MINIBAG* 100 ML IV SCH (08:46)
[2017-06-25] MEDS: HumuLIN R SC PRN ×3 (11:50→21:15)
[2017-06-25] MEDS ORDERED: ZESTRIL TAB 20 MG ONE (14:49)
[2017-06-25] MEDS: ZESTRIL TAB 20 MG PO SCH (14:58)
[2017-06-25] MEDS: SNACK - Diabetic Appropriate PO SCH (21:27)
[2017-06-26] MEDS: NS 1000 ML 1,000 ML IV SCH (01:07)
[2017-06-26] MEDS: KENALOG CREAM TOP SCH ×3 (05:15→21:36)
[2017-06-26] MEDS: HumuLIN R SC PRN ×4 (05:55→21:37)
[2017-06-26 06:13] LABS: BASOPHILS # (AUTO) 0.1 X10^3/uL (0.0-0.1); BASOPHILS % (AUTO) 0.5 % (0.2-1.0); EOSINOPHILS # (AUTO) 0.5 x10^3/uL (0.0-0.2); EOSINOPHILS % (AUTO) 4.1 % (0.9-2.9); HEMATOCRIT 32.3 % (36.0-47.0); HEMOGLOBIN 10.9 g/dL (12.0-16.0); LYMPHOCYTES # (AUTO) 2.2 X10^3/uL (1.3-2.9); LYMPHOCYTES % (AUTO) 17.4 % (21.0-51.0); MEAN CORPUSCULAR HEMOGLOBIN 30.3 pg (27.0-34.0); MEAN CORPUSCULAR HGB CONC 33.7 g/dL (33.0-35.0); MEAN CORPUSCULAR VOLUME 89.8 fL (80.0-100.0); MEAN PLATELET VOLUME 10.3 fL (7.4-11.0); MONOCYTES # (AUTO) 1.2 x10^3/uL (0.3-0.8); MONOCYTES % (AUTO) 9.7 % (0.0-13.0); NEUTROPHILS # (AUTO) 8.5 x10^3/uL (2.2-4.8); NEUTROPHILS % (AUTO) 68.3 % (42.0-75.0); PLATELET COUNT 473 X10^3/uL (150.0-450.0); RED BLOOD COUNT 3.59 X10^6/uL (3.5-5.4); WHITE BLOOD COUNT 12.4 X10^3/uL (3.6-10.0)
[2017-06-26 06:45] LABS: ALANINE AMINOTRANSFERASE 20 Units/L (12-78); ALBUMIN 2.3 g/dL (3.4-5.0); ALKALINE PHOSPHATASE 74 Units/L (46-116); ASPARTATE AMINO TRANSFERASE 15 Units/L (15-37); BLOOD UREA NITROGEN 17 mg/dL (7-18); CALCIUM 8.2 mg/dL (8.5-10.1); CARBON DIOXIDE 27.6 mmol/L (21-32); CHLORIDE 102 mmol/L (98-107); COR CA(FOR HYPOALB) 9.6 mg/dL (8.5-10.1); COR NA(FOR HYPERGLY) 139 mmol/L (136-145); SODIUM 137 mmol/L (136-145); TOTAL PROTEIN 6.4 g/dL (6.4-8.2); eGFR BLACK RACES > 60 (>60); eGFR NON BLACK RACES > 60 (>60)
[2017-06-26] MEDS ORDERED: ZESTRIL TAB 20 MG ONE (07:59)
[2017-06-26] MEDS: ZESTRIL TAB 20 MG PO SCH (08:18)
[2017-06-26] MEDS: NYSTATIN POWDER TOP SCH ×2 (08:18→21:15)
--- NOTE | 2017-06-26 13:50 | PCM.PROG ---
Progress Note - Progress Note for Day of Date: 06/26/17 - Subjective Subjective: 77WF S/P R HUMERUS FRACTURE REPAIR PER DR CASTAÑEDA. PT CURRENTLY UNDERGOING PHYSICAL THERAPY. PT HAD RLE INJURY IN ADDITION TO RUE FRACTURE. PLAN TO CONTINUE POST OPERATIVE CARE, CONTINUE CURRENT MEDICATIONS, PLAN TO SWING BED STATUS WHEN ORTHO HAS RELEASED. - Past Medical Family Social History Past Med/Fam/Surg Hx: No changes since H&P Allergies: Allergies No Known Drug Allergies Allergy (Verified 06/18/17 04:06) - Review of Systems ROS: No change since H&P - Vital Signs and I&O's Vital Signs: Temperature 98.4 F Pulse Rate [Left Brachial] 75 Pulse Rate 84 Respiratory Rate 20 Blood Pressure [Left Arm] 137/62 Blood Pressure 163/70 O2 Sat by Pulse Oximetry 96 Intake and Output: Intake & Output 06/24/17 06/25/17 06/26/17 06/27/17 11:59 11:59 11:59 11:59 Intake Total 1475 1480 1853 Output Total 980 Balance 495 1480 1853 - Physical Exam Oriented: Normal Eyes: Normal Ear: Normal Nose: Normal Throat: Normal Respiratory: Diminished Cardiovascular: Normal : Normal Auscultation: Bowel Sounds: Normal Tenderness: Normal Skin: Normal, Wound (RUE) Musculoskeletal: Right, Shoulder, Knee, Tender Psychiatric: Anxiety Mood Description: Calm Affect: Anxious Speech Pattern: Clear, Appropriate - Laboratory and Diagnostics Result Diagrams: 06/26/17 04:55 06/26/17 04:55 Labs: 06/18/17 17:14 Urine,Catheterized Urine Culture - Final Escherichia Coli Laboratory WBC 12.4 X10^3/uL (3.6-10.0) H 06/26/17 04:55 RBC 3.59 X10^6/uL (3.5-5.4) 06/26/17 04:55 Hgb 10.9 g/dL (12.0-16.0) L 06/26/17 04:55 Hct 32.3 % (36.0-47.0) L 06/26/17 04:55 MCV 89.8 fL (80.0-100.0) 06/26/17 04:55 MCH 30.3 pg (27.0-34.0) 06/26/17 04:55 MCHC 33.7 g/dL (33.0-35.0) 06/26/17 04:55 RDW 14.0 % (11.6-16.5) 06/26/17 04:55 Plt Count 473 X10^3/uL (150.0-450.0) H 06/26/17 04:55 MPV 10.3 fL (7.4-11.0) 06/26/17 04:55 Neut % (Auto) 68.3 % (42.0-75.0) 06/26/17 04:55 Lymph % (Auto) 17.4 % (21.0-51.0) L 06/26/17 04:55 [facility] % (Auto) 9.7 % (0.0-13.0) 06/26/17 04:55 Eos % (Auto) 4.1 % (0.9-2.9) H 06/26/17 04:55 Baso % (Auto) 0.5 % (0.2-1.0) 06/26/17 04:55 Neut # (Auto) 8.5 x10^3/uL (2.2-4.8) H 06/26/17 04:55 Lymph # (Auto) 2.2 X10^3/uL (1.3-2.9) 06/26/17 04:55 [facility] # (Auto) 1.2 x10^3/uL (0.3-0.8) H 06/26/17 04:55 Eos # (Auto) 0.5 x10^3/uL (0.0-0.2) H 06/26/17 04:55 Baso # (Auto) 0.1 X10^3/uL (0.0-0.1) 06/26/17 04:55 Absolute Nucleated RBC 0.1 /100WBC 06/26/17 04:55 Sodium 137 mmol/L (136-145) 06/26/17 04:55 Corrected Sodium 139 mmol/L (136-145) 06/26/17 04:55 Potassium 3.9 mmol/L (3.5-5.1) 06/26/17 04:55 Chloride 102 mmol/L (98-107) 06/26/17 04:55 Carbon Dioxide 27.6 mmol/L (21-32) 06/26/17 04:55 BUN 17 mg/dL (7-18) 06/26/17 04:55 Creatinine 0.60 mg/dL (0.55-1.02) 06/26/17 04:55 Est GFR (MDRD) Af Amer > 60 (>60) 06/26/17 04:55 Est GFR (MDRD) Non-Af > 60 (>60) 06/26/17 04:55 Glucose 175 mg/dL (65-99) H 06/26/17 04:55 POC Glucose (mg/dL) 254 mg/dL (65-99) H 06/26/17 10:49 Hemoglobin A1c 6.2 % 06/18/17 05:25 Calcium 8.2 mg/dL (8.5-10.1) L 06/26/17 04:55 Corrected Calcium 9.6 mg/dL (8.5-10.1) 06/26/17 04:55 Magnesium 2.0 mg/dL (1.7-2.9) 06/24/17 04:30 Total Bilirubin 0.50 mg/dL (0.2-1.0) 06/26/17 04:55 AST 15 Units/L (15-37) 06/26/17 04:55 ALT 20 Units/L (12-78) 06/26/17 04:55 Alkaline Phosphatase 74 Units/L (46-116) 06/26/17 04:55 Total Protein 6.4 g/dL (6.4-8.2) 06/26/17 04:55 Albumin 2.3 g/dL (3.4-5.0) L 06/26/17 04:55 Globulin 4.1 g/dL (2.5-4.5) 06/26/17 04:55 Albumin/Globulin Ratio 0.6 Ratio (1.1-2.1) L 06/26/17 04:55 Specimen Type Catherized urine 06/18/17 17:14 Urine Color Yellow (YELLOW) 06/18/17 17:14 Urine Appearance Cloudy (CLEAR) 06/18/17 17:14 Urine pH 5.0 (5.0 - 8.0) 06/18/17 17:14 Ur Specific [place] 1.025 (1.000-1.030) 06/18/17 17:14 Urine Protein 3+ (NEGATIVE) 06/18/17 17:14 Urine Glucose (UA) 3+ (NEGATIVE) 06/18/17 17:14 Urine Ketones 1+ (NEGATIVE) 06/18/17 17:14 Urine Occult Blood 3+ (NEGATIVE) 06/18/17 17:14 Urine Nitrite Positive (NEGATIVE) 06/18/17 17:14 Urine Bilirubin Negative (NEGATIVE) 06/18/17 17:14 Urine Urobilinogen Normal (NORMAL) 06/18/17 17:14 Ur Leukocyte Esterase 3+ (NEGATIVE) 06/18/17 17:14 Urine RBC 5-10 /HPF (NONE SEEN) 06/18/17 17:14 Urine WBC Tntc /HPF (NONE SEEN) 06/18/17 17:14 Ur Squamous Epith Cells Few /HPF (NEGATIVE) 06/18/17 17:14 Urine Bacteria 1+ /HPF (NEGATIVE) 06/18/17 17:14 Urine Mucus Few /HPF (NEGATIVE) 06/18/17 17:14 Ur Culture Indicated? Yes/culture set up 06/18/17 17:14 Blood Type A POSITIVE 06/19/17 07:49 Antibody Screen Negative 06/19/17 07:49 - Plan (1) Right humeral fracture Status: Acute Plan: PAIN CONTROL, ORTHO CONSULT, PHYSICAL THERAPY. POST OP INSTRUCTIONS PER DR CASTAÑEDA (2) Fall Status: Acute (3) Diabetes Status: Acute Plan: SSI (4) UTI (urinary tract infection) Status: Acute Plan: IV ROCEPHIN AND LEVAQUIN
[2017-06-26] MEDS: PERCOCET TAB 5/325 MG PO PRN (14:05)
[2017-06-26] MEDS: SNACK - Diabetic Appropriate PO SCH (21:14)
[2017-06-26] MEDS: COLACE CAP 100 MG PO SCH (21:15)
[2017-06-26] MEDS: MILK OF MAGNESIA PO SCH (21:15)
--- NOTE | 2017-06-26 21:19 | PCM.PROG ---
Progress Note - Progress Note for Day of Date: 06/26/17 - Subjective Subjective: rt shoulder ORIF- doing well. RT knee distal femur undisplaced fracture- conservative management.-doing well. she is getting PT for transfers and mobilization. she is NWB rt lower limb. she has shoulder immobilizer for her fracture. she stays at her sons home and she will benefit from swing bed status for rehab. no active orthopedic intervention. CT and MRI of the knee again reviewed. she will heal without surgery for the knee. She needs to be non weight bearing on her right knee till she heals. she needs to follow up at my office at 6 weeks with X rays. NWB till then. shoulder immobilizer till then. - Past Medical Family Social History Past Med/Fam/Surg Hx: No changes since H&P Allergies: Allergies No Known Drug Allergies Allergy (Verified 06/18/17 04:06) - Review of Systems ROS: No change since H&P - Vital Signs and I&O's Vital Signs: Temperature 98.4 F Pulse Rate [Left Brachial] 76 Pulse Rate 84 Respiratory Rate 18 Blood Pressure [Left Arm] 158/70 Blood Pressure 163/70 O2 Sat by Pulse Oximetry 94 Intake and Output: Intake & Output 06/24/17 06/25/17 06/26/17 06/27/17 11:59 11:59 11:59 11:59 Intake Total 1475 1480 1853 640 Output Total 980 Balance 495 1480 1853 640 - Physical Exam Oriented: Normal Eyes: Normal Ear: Normal Nose: Normal Throat: Normal Respiratory: Diminished Cardiovascular: Normal : Normal Auscultation: Bowel Sounds: Normal Tenderness: Normal Skin: Normal, Wound (RUE) Musculoskeletal: Right, Shoulder, Knee, Tender Psychiatric: Anxiety Mood Description: Calm Affect: Anxious Speech Pattern: Clear, Appropriate - Laboratory and Diagnostics Result Diagrams: 06/26/17 04:55 06/26/17 04:55 Labs: 06/18/17 17:14 Urine,Catheterized Urine Culture - Final Escherichia Coli Laboratory WBC 12.4 X10^3/uL (3.6-10.0) H 06/26/17 04:55 RBC 3.59 X10^6/uL (3.5-5.4) 06/26/17 04:55 Hgb 10.9 g/dL (12.0-16.0) L 06/26/17 04:55 Hct 32.3 % (36.0-47.0) L 06/26/17 04:55 MCV 89.8 fL (80.0-100.0) 06/26/17 04:55 MCH 30.3 pg (27.0-34.0) 06/26/17 04:55 MCHC 33.7 g/dL (33.0-35.0) 06/26/17 04:55 RDW 14.0 % (11.6-16.5) 06/26/17 04:55 Plt Count 473 X10^3/uL (150.0-450.0) H 06/26/17 04:55 MPV 10.3 fL (7.4-11.0) 06/26/17 04:55 Neut % (Auto) 68.3 % (42.0-75.0) 06/26/17 04:55 Lymph % (Auto) 17.4 % (21.0-51.0) L 06/26/17 04:55 [place] % (Auto) 9.7 % (0.0-13.0) 06/26/17 04:55 Eos % (Auto) 4.1 % (0.9-2.9) H 06/26/17 04:55 Baso % (Auto) 0.5 % (0.2-1.0) 06/26/17 04:55 Neut # (Auto) 8.5 x10^3/uL (2.2-4.8) H 06/26/17 04:55 Lymph # (Auto) 2.2 X10^3/uL (1.3-2.9) 06/26/17 04:55 [place] # (Auto) 1.2 x10^3/uL (0.3-0.8) H 06/26/17 04:55 Eos # (Auto) 0.5 x10^3/uL (0.0-0.2) H 06/26/17 04:55 Baso # (Auto) 0.1 X10^3/uL (0.0-0.1) 06/26/17 04:55 Absolute Nucleated RBC 0.1 /100WBC 06/26/17 04:55 Sodium 137 mmol/L (136-145) 06/26/17 04:55 Corrected Sodium 139 mmol/L (136-145) 06/26/17 04:55 Potassium 3.9 mmol/L (3.5-5.1) 06/26/17 04:55 Chloride 102 mmol/L (98-107) 06/26/17 04:55 Carbon Dioxide 27.6 mmol/L (21-32) 06/26/17 04:55 BUN 17 mg/dL (7-18) 06/26/17 04:55 Creatinine 0.60 mg/dL (0.55-1.02) 06/26/17 04:55 Est GFR (MDRD) Af Amer > 60 (>60) 06/26/17 04:55 Est GFR (MDRD) Non-Af > 60 (>60) 06/26/17 04:55 Glucose 175 mg/dL (65-99) H 06/26/17 04:55 POC Glucose (mg/dL) 265 mg/dL (65-99) H 06/26/17 16:18 Hemoglobin A1c 6.2 % 06/18/17 05:25 Calcium 8.2 mg/dL (8.5-10.1) L 06/26/17 04:55 Corrected Calcium 9.6 mg/dL (8.5-10.1) 06/26/17 04:55 Magnesium 2.0 mg/dL (1.7-2.9) 06/24/17 04:30 Total Bilirubin 0.50 mg/dL (0.2-1.0) 06/26/17 04:55 AST 15 Units/L (15-37) 06/26/17 04:55 ALT 20 Units/L (12-78) 06/26/17 04:55 Alkaline Phosphatase 74 Units/L (46-116) 06/26/17 04:55 Total Protein 6.4 g/dL (6.4-8.2) 06/26/17 04:55 Albumin 2.3 g/dL (3.4-5.0) L 06/26/17 04:55 Globulin 4.1 g/dL (2.5-4.5) 06/26/17 04:55 Albumin/Globulin Ratio 0.6 Ratio (1.1-2.1) L 06/26/17 04:55 Specimen Type Catherized urine 06/18/17 17:14 Urine Color Yellow (YELLOW) 06/18/17 17:14 Urine Appearance Cloudy (CLEAR) 06/18/17 17:14 Urine pH 5.0 (5.0 - 8.0) 06/18/17 17:14 Ur Specific [place] 1.025 (1.000-1.030) 06/18/17 17:14 Urine Protein 3+ (NEGATIVE) 06/18/17 17:14 Urine Glucose (UA) 3+ (NEGATIVE) 06/18/17 17:14 Urine Ketones 1+ (NEGATIVE) 06/18/17 17:14 Urine Occult Blood 3+ (NEGATIVE) 06/18/17 17:14 Urine Nitrite Positive (NEGATIVE) 06/18/17 17:14 Urine Bilirubin Negative (NEGATIVE) 06/18/17 17:14 Urine Urobilinogen Normal (NORMAL) 06/18/17 17:14 Ur Leukocyte Esterase 3+ (NEGATIVE) 06/18/17 17:14 Urine RBC 5-10 /HPF (NONE SEEN) 06/18/17 17:14 Urine WBC Tntc /HPF (NONE SEEN) 06/18/17 17:14 Ur Squamous Epith Cells Few /HPF (NEGATIVE) 06/18/17 17:14 Urine Bacteria 1+ /HPF (NEGATIVE) 06/18/17 17:14 Urine Mucus Few /HPF (NEGATIVE) 06/18/17 17:14 Ur Culture Indicated? Yes/culture set up 06/18/17 17:14 Blood Type A POSITIVE 06/19/17 07:49 Antibody Screen Negative 06/19/17 07:49
[2017-06-27] MEDS ORDERED: VISTARIL PO PRN (01:18)
[2017-06-27] MEDS: NS 1000 ML 1,000 ML IV SCH (01:18)
[2017-06-27] MEDS: KENALOG CREAM TOP SCH ×2 (05:28→14:06)
[2017-06-27 06:10] LABS: BASOPHILS # (AUTO) 0.1 X10^3/uL (0.0-0.1); BASOPHILS % (AUTO) 0.4 % (0.2-1.0); EOSINOPHILS # (AUTO) 0.4 x10^3/uL (0.0-0.2); HEMATOCRIT 31.7 % (36.0-47.0); HEMOGLOBIN 10.6 g/dL (12.0-16.0); LYMPHOCYTES # (AUTO) 2.2 X10^3/uL (1.3-2.9); LYMPHOCYTES % (AUTO) 17.3 % (21.0-51.0); MEAN CORPUSCULAR HGB CONC 33.5 g/dL (33.0-35.0); MEAN CORPUSCULAR VOLUME 89.5 fL (80.0-100.0); MEAN PLATELET VOLUME 10.1 fL (7.4-11.0); MONOCYTES # (AUTO) 1.2 x10^3/uL (0.3-0.8); MONOCYTES % (AUTO) 9.4 % (0.0-13.0); NEUTROPHILS # (AUTO) 8.8 x10^3/uL (2.2-4.8); NEUTROPHILS % (AUTO) 69.9 % (42.0-75.0); PLATELET COUNT 480 X10^3/uL (150.0-450.0); RED BLOOD COUNT 3.54 X10^6/uL (3.5-5.4); WHITE BLOOD COUNT 12.5 X10^3/uL (3.6-10.0)
[2017-06-27 06:42] LABS: ALANINE AMINOTRANSFERASE 24 Units/L (12-78); ALBUMIN 2.3 g/dL (3.4-5.0); ALKALINE PHOSPHATASE 80 Units/L (46-116); ASPARTATE AMINO TRANSFERASE 21 Units/L (15-37); BLOOD UREA NITROGEN 17 mg/dL (7-18); CALCIUM 8.2 mg/dL (8.5-10.1); CARBON DIOXIDE 27.3 mmol/L (21-32); CHLORIDE 104 mmol/L (98-107); COR CA(FOR HYPOALB) 9.6 mg/dL (8.5-10.1); COR NA(FOR HYPERGLY) 141 mmol/L (136-145); CREATININE 0.67 mg/dL (0.55-1.02); SODIUM 139 mmol/L (136-145); TOTAL PROTEIN 6.4 g/dL (6.4-8.2); eGFR BLACK RACES > 60 (>60); eGFR NON BLACK RACES > 60 (>60)
[2017-06-27] MEDS ORDERED: ZESTRIL TAB 20 MG ONE (07:33)
[2017-06-27] MEDS: COLACE CAP 100 MG PO SCH (08:18)
[2017-06-27] MEDS: MILK OF MAGNESIA PO SCH (08:18)
[2017-06-27] MEDS: NYSTATIN POWDER TOP SCH (08:18)
[2017-06-27] MEDS: ZESTRIL TAB 20 MG PO SCH (08:19)
[2017-06-27] MEDS: PERCOCET TAB 5/325 MG PO PRN (09:29)
[2017-06-27] MEDS: HumuLIN R SC PRN (11:26)
[2017-06-27] MEDS ORDERED: ZyrTEC TAB 10 MG PO ONE (11:59)
[2017-06-27 12:18] VITALS: BP 143/66
[2017-06-28] MEDS ORDERED: NORVASC TAB 5 MG PO SCH (09:00)
== END 2017-06-27 15:15 | DRG 563 ==
LOC: UNDOADMIN 02:57 → MED/SURG 02:57
PROVIDERS: ADMIT Internal Medicine; ATTEND Internal Medicine
PROC: 0PSC04Z Reposition Right Humeral Head with Internal Fixation Device, Open Approach (ICD-10-PCS; principal; 2017-06-19 07:30)
DX: S42.351A Displaced comminuted fracture of shaft of humerus, right arm, initial encounter for closed fracture (principal); S72.411A Displaced unspecified condyle fracture of lower end of right femur, initial encounter for closed fracture; W01.0XXA Fall on same level from slipping, tripping and stumbling without subsequent striking against object, initial encounter; Y92.89 Other specified places as the place of occurrence of the external cause; M25.561 Pain in right knee; M79.621 Pain in right upper arm; R60.0 Localized edema; E11.65 Type 2 diabetes mellitus with hyperglycemia; N39.0 Urinary tract infection, site not specified; B96.29 Other Escherichia coli [E. coli] as the cause of diseases classified elsewhere; R53.1 Weakness; I10 Essential (primary) hypertension; R26.89 Other abnormalities of gait and mobility
CPT/HCPCS: 36415; 71045; 73030; 73200; 73564; 73700; 73721; 76000; 80048; 80053; 81001; 83036; 83735; 85025; 86850; 86900; 86901; 87086; 87088; 87186; 93005; 93010; 94762; 97535; 99100; 99221; 99231; A4216; A4222; Q0177; S0020; J0330; J0690; J0696; J1170; J1815; J1956; J2001; J2270; J2405; J2710; J3010; J3490; J7120

== ENCOUNTER 2017-08-12 14:20 | Inpatient (IN) ==
[2017-08-12 14:34] VITALS: BMI 27.4
--- NOTE | 2017-08-12 14:56 | DR.GENAD ---
HPI - PCP Primary Care Physician: Dr. Gallagher - HPI Comment HPI Comment: POST ORIF RT SHOULDER 2017 AND WAS IN REHAB. D/C HOME TODAY. FELL AT HOME GOING UP THE STEP. PATIENT SAID ARM POPPED. INCREASING PAIN SINCE. TOOK PAIN MED BEFORE COMING. - Complaint/Symptoms Chief Complaint Doctors Comments: PAIN RIGHT ARM. FELL. Chief Complaint:: Pt had surgery on her arm 06/19/17 for right proximal humerus fx that was broken in three places. Pt was in Rehab in [place]. Pt was released from [place] this morning and tripped on stairs at home and fell and son states he heard a "pop" in her right arm - Nurses notes reviewed Nurses Notes Review: Yes - Source History Provided: Patient - Mode of Arrival Mode of Arrival: Ambulatory - Timing Onset of Chief Complaint: 08/12/17 Came on: Suddenly - Duration Duration: Constant Duration: Hours - Severity Severity: Moderate PMH - PMH Past Medical History: Yes Past Medical History: Anemia, Dementia, Diabetes, Kidney Stones Past Surgical History: Yes Surgical History: Hysterectomy Past Surgical History Comment: right hip surgery, right arm surgery, - Family History History of Family Medical Conditions: No (unknown) - Social History Does patient currently use any type of tobacco product: No Have you used tobacco products in the last 12 months: No Type of Tobacco Use: None Does any household member use tobacco: Yes Alcohol Use: None Do you use any recreational Drugs:: No Lives With: Family Lives Where: Home - infectious screening In the last 2 months have you had wt loss of >10#?: NO Have you had fever, night sweats or hemotysis?: No Have you traveled outside the country in the last 6 months?: No Isolation: Standard ROS - Review of Systems Constitutional: No Symptoms Reported Eyes: No Symptoms Reported ENTM: No Symptoms Reported Respiratoy: No Symptoms Reported Cardiovascular: No Symptoms Reported Gastrointestinal/Abdominal: No Symptoms Reported Genitourinary: No Symptoms Reported Neurological: No Symptoms Reported Musculoskeletal: Muscle Pain, Shoulder, Knee Integumentary: No Symptoms Reported Hematologic/Lymphatic: Easy Bruising Endocrine: No Symptoms Reported All Other Systems: Reviewed and Negative PE - Vital Signs Vitals: Temperature 98.1 F Pulse Rate 80 Respiratory Rate 20 Blood Pressure [Left Arm] 143/66 Blood Pressure 162/70 O2 Sat by Pulse Oximetry 95 - General Limitations: No Limitations General Appearance: Alert - Head Head Exam: Normal Inspection - Eyes Eye exam: Normal Appearance - ENT ENT Exam: Normal External Ear Exam External Ear Exam: Normal External Inspection TM/Canal Exam: Bilateral Normal Nose Exam: Normal Nose Exam Mouth Exam: Normal Inspection Throat Exam: Normal Inspection - Neck Neck Exam: Trachea Midline - Chest Chest Inspection: Symmetric Chest Wall Rise - Respiratory Respiratory Exam: Normal Lung Sounds Bilat Respiratory Exam: Bilateral Clear to Auscultation - Cardiovascular Cardiovascular Exam: Regular Rate, Normal Rhythm, Normal Heart Sounds - Abdominal Exam Abdominal Exam: Normal Bowel Sounds, Soft. negative: Tenderness - Extremities Extremities Exam: Tenderness (RT SHOULDER AND ARM TENDER. DECREASE ROM.) - Back Back Exam: Normal Inspection - Neurologic Neurological Exam: Alert, Oriented X3 - Psychiatric Psychiatric Exam: Normal Affect, Normal Mood - Skin Skin Exam: Normal Color MDM - Additional Information Additional Information Obtained From: Family - Differential Diagnosis Differential Diagnosis: FRACTURE RT HUMERUS, CONTUSION RT HUMERUS, SPRAIN RT HUMERUS. Course - Treatment Treatment: SEE ORDERS. - Consultation Consultation Comments: DISCUSS PATIENT WITH MARYANNE LANDRUM, HE WILL ADMIT PATIENT. - Education/Counseling Education/Counseling: Patient, Family, Education Educated On: Diagnosis, Needs for Follow Up ROR - Labs Reviewed Laboratory Results Reviewed?: Yes Result Diagrams: 08/13/17 05:26 08/13/17 04:25 - XRAY XRAY Interpreted by: Radiologist XRAY Findings: REPORT DISCUSS WITH PATIENT AND FAMILY - Diagnosis Discharge Problem: Right humeral fracture Qualifiers: Encounter type: initial encounter Humerus Location: shaft Fracture type: closed Fracture morphology: spiral Fracture alignment: displaced Qualified Code( s): S42.341A - Displaced spiral fracture of shaft of humerus, right arm, initial encounter for closed fracture Contusion of right shoulder Qualifiers: Encounter type: initial encounter Qualified Code(s): S40.011A - Contusion of right shoulder, initial encounter - Discharge Plan Disposition: HOME, SELF-CARE Condition: Stable - Follow ups/Referrals - Instructions
--- NOTE | 2017-08-12 15:32 | RAD ---
Examination: Right shoulder, four views History: Recent surgery, fracture, recent fall Comparison 06/19/2017 Findings: There is a new oblique fracture immediately below the surgical screw-plate fixation device in the proximal right humerus. The distal humeral fragment is displaced significantly, and there is angular deformity at the fracture site. Impression: New acute displaced/deforming fracture immediately below the surgical fixation hardware i n the proximal right humeral shaft. Reported By:
--- NOTE | 2017-08-12 15:34 | RAD ---
HISTORY: Injury, fall, right upper arm pain Study: Right humerus AP and lateral Comparison: 06/19/2017 Findings: The bone is osteopenic. The patient is status post open reduction and internal fixation of a proximal humeral fracture with a plate and multiple screws. Distal to the plate there is a spiral fracture of the midshaft of the humerus with rotation and separation of the major fracture fragments. IMPRESSION: Displaced spiral fracture of the midshaft of the humerus just distal to the compression plate fixing an older openly reduced internally fixed proximal humeral fracture Osteopenia Reported By:
[2017-08-12 15:46] LABS: BASOPHILS # (AUTO) 0.1 X10^3/uL (0.0-0.1); BASOPHILS % (AUTO) 0.3 % (0.2-1.0); EOSINOPHILS # (AUTO) 0.1 x10^3/uL (0.0-0.2); EOSINOPHILS % (AUTO) 0.3 % (0.9-2.9); HEMATOCRIT 39.3 % (36.0-47.0); HEMOGLOBIN 12.9 g/dL (12.0-16.0); LYMPHOCYTES % (AUTO) 4.8 % (21.0-51.0); MEAN CORPUSCULAR HEMOGLOBIN 28.7 pg (27.0-34.0); MEAN CORPUSCULAR HGB CONC 32.9 g/dL (33.0-35.0); MEAN CORPUSCULAR VOLUME 87.3 fL (80.0-100.0); MEAN PLATELET VOLUME 9.5 fL (7.4-11.0); MONOCYTES # (AUTO) 0.8 x10^3/uL (0.3-0.8); MONOCYTES % (AUTO) 3.8 % (0.0-13.0); NEUTROPHILS # (AUTO) 18.8 x10^3/uL (2.2-4.8); NEUTROPHILS % (AUTO) 90.8 % (42.0-75.0); PLATELET COUNT 370 X10^3/uL (150.0-450.0); RED CELL DISTRIBUTION WIDTH 14.3 % (11.6-16.5); WHITE BLOOD COUNT 20.7 X10^3/uL (3.6-10.0)
[2017-08-12 15:51] LABS: PLATELET MORPHOLOGY COMMENT NORMAL (NORMAL)
[2017-08-12 15:54] LABS: BAND NEUTROPHILS % 2 % (0-10)
[2017-08-12 15:57] LABS: ALANINE AMINOTRANSFERASE 24 Units/L (12-78); ALBUMIN 3.2 g/dL (3.4-5.0); ALKALINE PHOSPHATASE 168 Units/L (46-116); ASPARTATE AMINO TRANSFERASE 19 Units/L (15-37); BLOOD UREA NITROGEN 17 mg/dL (7-18); CALCIUM 8.4 mg/dL (8.5-10.1); CARBON DIOXIDE 27.5 mmol/L (21-32); CHLORIDE 97 mmol/L (98-107); COR NA(FOR HYPERGLY) 138 mmol/L (136-145); CREATININE 0.66 mg/dL (0.55-1.02); SODIUM 136 mmol/L (136-145); TOTAL PROTEIN 7.8 g/dL (6.4-8.2); eGFR NON BLACK RACES > 60 (>60)
[2017-08-12] MEDS ORDERED: ZOFRAN INJ 4 MG VIAL IVP PRN (17:41)
[2017-08-12] MEDS: MORPHINE SULFATE INJ 2 MG INJ IVP PRN (18:29)
[2017-08-12] MEDS: NS 1000 ML 1,000 ML IV SCH (22:30)
[2017-08-13 05:16] LABS: ALANINE AMINOTRANSFERASE 20 Units/L (12-78); ALBUMIN 2.5 g/dL (3.4-5.0); ALKALINE PHOSPHATASE 139 Units/L (46-116); ASPARTATE AMINO TRANSFERASE 20 Units/L (15-37); BLOOD UREA NITROGEN 12 mg/dL (7-18); CALCIUM 7.7 mg/dL (8.5-10.1); CARBON DIOXIDE 28.8 mmol/L (21-32); CHLORIDE 100 mmol/L (98-107); COR CA(FOR HYPOALB) 8.9 mg/dL (8.5-10.1); COR NA(FOR HYPERGLY) 137 mmol/L (136-145); CREATININE 0.54 mg/dL (0.55-1.02); SODIUM 135 mmol/L (136-145); TOTAL PROTEIN 6.5 g/dL (6.4-8.2); eGFR NON BLACK RACES > 60 (>60)
[2017-08-13 05:50] LABS: BASOPHILS % (AUTO) 0.3 % (0.2-1.0); EOSINOPHILS # (AUTO) 0.2 x10^3/uL (0.0-0.2); EOSINOPHILS % (AUTO) 1.7 % (0.9-2.9); HEMATOCRIT 34.8 % (36.0-47.0); HEMOGLOBIN 11.9 g/dL (12.0-16.0); LYMPHOCYTES # (AUTO) 2.6 X10^3/uL (1.3-2.9); LYMPHOCYTES % (AUTO) 25.5 % (21.0-51.0); MEAN CORPUSCULAR HEMOGLOBIN 29.3 pg (27.0-34.0); MEAN CORPUSCULAR HGB CONC 34.1 g/dL (33.0-35.0); MEAN CORPUSCULAR VOLUME 85.9 fL (80.0-100.0); MONOCYTES % (AUTO) 9.7 % (0.0-13.0); NEUTROPHILS # (AUTO) 6.3 x10^3/uL (2.2-4.8); NEUTROPHILS % (AUTO) 62.8 % (42.0-75.0); PLATELET COUNT 345 X10^3/uL (150.0-450.0); RED BLOOD COUNT 4.05 X10^6/uL (3.5-5.4); RED CELL DISTRIBUTION WIDTH 14.9 % (11.6-16.5); WHITE BLOOD COUNT 10.1 X10^3/uL (3.6-10.0)
[2017-08-13 14:20] LABS: BILIRUBIN,URINE NEGATIVE (NEGATIVE); BLOOD/HEMOGLOBIN,URINE 4+ (NEGATIVE); GLUCOSE, URINE 3+ (NEGATIVE); KETONES,URINE 2+ (NEGATIVE); LEUKOCYTE ESTERASE ,URINE 3+ (NEGATIVE); NITRITES,URINE POSITIVE (NEGATIVE); PROTEIN,URINE 3+ (NEGATIVE); UROBILINOGEN,URINE NORMAL (NORMAL)
[2017-08-13 14:22] LABS: APPEARANCE,URINE CLOUDY (CLEAR); COLOR,URINE YELLOW (YELLOW)
[2017-08-13 14:29] LABS: BACTERIA,URINE 3+ /HPF (NEGATIVE); MUCUS,URINE FEW /HPF (NEGATIVE); RBC,URINE 30-50 /HPF (NONE SEEN); SQUAMOUS EPITHELIAL CELL,UR FEW /HPF (NEGATIVE)
[2017-08-13] MEDS: HumuLIN R SUBCUT PRN ×2 (18:05→21:01)
[2017-08-13] MEDS: NS 1000 ML 1,000 ML IV SCH (21:04)
[2017-08-14 06:03] LABS: BASOPHILS # (AUTO) 0.1 X10^3/uL (0.0-0.1); BASOPHILS % (AUTO) 0.6 % (0.2-1.0); EOSINOPHILS # (AUTO) 0.3 x10^3/uL (0.0-0.2); EOSINOPHILS % (AUTO) 2.2 % (0.9-2.9); HEMATOCRIT 34.3 % (36.0-47.0); HEMOGLOBIN 11.4 g/dL (12.0-16.0); LYMPHOCYTES # (AUTO) 2.1 X10^3/uL (1.3-2.9); LYMPHOCYTES % (AUTO) 18.3 % (21.0-51.0); MEAN CORPUSCULAR HEMOGLOBIN 28.7 pg (27.0-34.0); MEAN CORPUSCULAR HGB CONC 33.2 g/dL (33.0-35.0); MEAN CORPUSCULAR VOLUME 86.3 fL (80.0-100.0); MONOCYTES # (AUTO) 1.1 x10^3/uL (0.3-0.8); MONOCYTES % (AUTO) 9.5 % (0.0-13.0); NEUTROPHILS # (AUTO) 8.1 x10^3/uL (2.2-4.8); NEUTROPHILS % (AUTO) 69.4 % (42.0-75.0); PLATELET COUNT 332 X10^3/uL (150.0-450.0); RED BLOOD COUNT 3.97 X10^6/uL (3.5-5.4); RED CELL DISTRIBUTION WIDTH 14.9 % (11.6-16.5); WHITE BLOOD COUNT 11.7 X10^3/uL (3.6-10.0)
[2017-08-14] MEDS: MORPHINE SULFATE INJ 2 MG INJ IVP PRN ×3 (06:08→18:00)
[2017-08-14 06:17] LABS: ALANINE AMINOTRANSFERASE 18 Units/L (12-78); ALBUMIN 2.4 g/dL (3.4-5.0); ALKALINE PHOSPHATASE 128 Units/L (46-116); ASPARTATE AMINO TRANSFERASE 12 Units/L (15-37); BLOOD UREA NITROGEN 11 mg/dL (7-18); CALCIUM 7.6 mg/dL (8.5-10.1); CARBON DIOXIDE 26.9 mmol/L (21-32); CHLORIDE 101 mmol/L (98-107); COR CA(FOR HYPOALB) 8.9 mg/dL (8.5-10.1); COR NA(FOR HYPERGLY) 137 mmol/L (136-145); SODIUM 135 mmol/L (136-145); TOTAL PROTEIN 6.6 g/dL (6.4-8.2); eGFR NON BLACK RACES > 60 (>60)
[2017-08-14] MEDS ORDERED: POTASSIUM CHL 40 MEQ/NS 0.45% 500 ML IV PRN (06:28)
[2017-08-14] MEDS ORDERED: POTASSIUM CHL 60 MEQ/NS 0.45% 500 ML IV PRN (06:28)
[2017-08-14] MEDS ORDERED: K-LYTE EFFERVESCENT PO PRN (06:28)
[2017-08-14] MEDS ORDERED: MAGNESIUM SULFATE 1 GRAM/100 mL PREMIX 1 GM/100 ML BAG IV PRN (06:28)
[2017-08-14] MEDS ORDERED: POTASSIUM CHLORIDE LIQ 20 MEQ UDC PO PRN (06:28)
[2017-08-14] MEDS: K-RIDER 10 MEQ/NS 100 ML 10 MEQ/100 ML BAG IV PRN ×4 (06:57→13:00)
[2017-08-14] MEDS ORDERED: NEOSTIGMINE INJ ONE (09:21)
[2017-08-14] MEDS: NS 1000 ML 1,000 ML IV SCH ×2 (09:55→22:28)
[2017-08-14] MEDS: NYSTATIN POWDER TOP SCH ×2 (09:56→20:27)
[2017-08-14] MEDS ORDERED: ROCEPHIN 1 GRAM IV PREMIX 1 GM/50 ML IV.SOLN. IV ONE (11:07)
[2017-08-14] MEDS: ROCEPHIN VIAL 1 GRAM 1 G in NS 100 ML IV + SPIKE MINIBAG* 100 ML IV SCH (11:10)
[2017-08-14] MEDS: HumuLIN R SUBCUT PRN (12:37)
[2017-08-14] MEDS ORDERED: ULTRAM PO PRN (15:19)
[2017-08-14] MEDS: COLACE CAP 100 MG PO SCH ×2 (16:17→20:26)
[2017-08-14] MEDS: NORVASC TAB 5 MG PO SCH (16:17)
[2017-08-14] MEDS: NORCO 5/325 MG TAB PO SCH (20:26)
[2017-08-14] MEDS: MILK OF MAGNESIA PO SCH (20:26)
[2017-08-14] MEDS ORDERED: ULTRAM PO SCH (22:00)
[2017-08-15] MEDS: VISTARIL PO PRN ×2 (00:14→21:27)
[2017-08-15 05:28] LABS: BASOPHILS % (AUTO) 0.3 % (0.2-1.0); EOSINOPHILS # (AUTO) 0.4 x10^3/uL (0.0-0.2); EOSINOPHILS % (AUTO) 3.8 % (0.9-2.9); HEMATOCRIT 34.9 % (36.0-47.0); HEMOGLOBIN 11.6 g/dL (12.0-16.0); LYMPHOCYTES # (AUTO) 3.3 X10^3/uL (1.3-2.9); LYMPHOCYTES % (AUTO) 29.7 % (21.0-51.0); MEAN CORPUSCULAR HEMOGLOBIN 28.8 pg (27.0-34.0); MEAN CORPUSCULAR HGB CONC 33.3 g/dL (33.0-35.0); MEAN CORPUSCULAR VOLUME 86.7 fL (80.0-100.0); MEAN PLATELET VOLUME 10.5 fL (7.4-11.0); MONOCYTES % (AUTO) 9.1 % (0.0-13.0); NEUTROPHILS # (AUTO) 6.3 x10^3/uL (2.2-4.8); NEUTROPHILS % (AUTO) 57.1 % (42.0-75.0); PLATELET COUNT 351 X10^3/uL (150.0-450.0); RED BLOOD COUNT 4.02 X10^6/uL (3.5-5.4); RED CELL DISTRIBUTION WIDTH 14.7 % (11.6-16.5); WHITE BLOOD COUNT 11.1 X10^3/uL (3.6-10.0)
[2017-08-15 05:45] LABS: ALANINE AMINOTRANSFERASE 18 Units/L (12-78); ALBUMIN 2.3 g/dL (3.4-5.0); ALKALINE PHOSPHATASE 117 Units/L (46-116); ASPARTATE AMINO TRANSFERASE 14 Units/L (15-37); BLOOD UREA NITROGEN 10 mg/dL (7-18); CALCIUM 7.5 mg/dL (8.5-10.1); CARBON DIOXIDE 28.7 mmol/L (21-32); CHLORIDE 100 mmol/L (98-107); COR CA(FOR HYPOALB) 8.9 mg/dL (8.5-10.1); COR NA(FOR HYPERGLY) 137 mmol/L (136-145); CREATININE 0.55 mg/dL (0.55-1.02); MAGNESIUM 2.2 mg/dL (1.7-2.9); SODIUM 135 mmol/L (136-145); TOTAL PROTEIN 6.6 g/dL (6.4-8.2); eGFR NON BLACK RACES > 60 (>60)
[2017-08-15] MEDS: NORVASC TAB 5 MG PO SCH (08:18)
[2017-08-15] MEDS: ROCEPHIN VIAL 1 GRAM 1 G in NS 100 ML IV + SPIKE MINIBAG* 100 ML IV SCH (08:18)
[2017-08-15] MEDS: MILK OF MAGNESIA PO SCH ×2 (08:18→21:28)
[2017-08-15] MEDS: NYSTATIN POWDER TOP SCH ×2 (08:18→21:27)
[2017-08-15] MEDS: NORCO 5/325 MG TAB PO SCH ×2 (08:18→21:27)
[2017-08-15] MEDS ORDERED: BUTT CREAM (COMPOUND) ONE (10:05)
[2017-08-15] MEDS: MORPHINE SULFATE INJ 2 MG INJ IVP PRN (10:17)
[2017-08-15] MEDS ORDERED: BUTT CREAM (COMPOUND) TOP PRN (10:17)
--- NOTE | 2017-08-15 13:24 | PCM.PROG ---
Progress Note - Progress Note for Day of Date: 08/15/17 - Subjective Subjective: 77WF ER ADMISSION AFTER FALL WITH CO RIGHT ARM PAIN, NAUSEA DUE TO PAIN. PT HAS FRACUTED RIGHT HUMERUS. PT IS CURRENTLY CO INTRACTABLE PAIN TO RIGHT ARM, CURRENTLY TAKING IV OPIOIDS FOR PAIN CONTROL AND HAS UTI, CULTURE REVEALED ECOLI, PT CURRENTLY ON IV ATBX. - Past Medical Family Social History Past Med/Fam/Surg Hx: No changes since H&P Allergies: Allergies LIZBETH Inhibitors Allergy (Verified 06/27/17 12:03) - Review of Systems ROS: No change since H&P - Vital Signs and I&O's Vital Signs: Temperature 98.6 F Pulse Rate [Left Brachial] 72 Pulse Rate 80 Respiratory Rate 18 Blood Pressure [Left Arm] 141/62 Blood Pressure 162/70 O2 Sat by Pulse Oximetry 93 Intake and Output: Intake & Output 08/13/17 08/14/17 08/15/17 08/16/17 11:59 11:59 11:59 11:59 Intake Total 494 406 1442 Balance 755 409 3059 - Physical Exam Oriented: Normal Eyes: Normal Ear: Normal Nose: Normal Respiratory: Normal Cardiovascular: Normal : Normal Auscultation: Bowel Sounds: Normal Palpation: Normal Tenderness: Normal Skin: Decreased Turgur Musculoskeletal: Right, Shoulder, Clavicle, Arm, Elbow, Swelling, Tender Psychiatric: Anxiety, Depression Speech Pattern: Clear, Appropriate - Laboratory and Diagnostics Result Diagrams: 08/15/17 04:30 08/15/17 04:30 Labs: 08/13/17 14:02 Urine,Clean Catch Urine Culture - Final Escherichia Coli Laboratory WBC 11.1 X10^3/uL (3.6-10.0) H 08/15/17 04:30 RBC 4.02 X10^6/uL (3.5-5.4) 08/15/17 04:30 Hgb 11.6 g/dL (12.0-16.0) L 08/15/17 04:30 Hct 34.9 % (36.0-47.0) L 08/15/17 04:30 MCV 86.7 fL (80.0-100.0) 08/15/17 04:30 MCH 28.8 pg (27.0-34.0) 08/15/17 04:30 MCHC 33.3 g/dL (33.0-35.0) 08/15/17 04:30 RDW 14.7 % (11.6-16.5) 08/15/17 04:30 Plt Count 351 X10^3/uL (150.0-450.0) 08/15/17 04:30 Plt Count Comment Adequate (ADEQUATE) 08/12/17 15:40 MPV 10.5 fL (7.4-11.0) 08/15/17 04:30 Neut % (Auto) 57.1 % (42.0-75.0) 08/15/17 04:30 Lymph % (Auto) 29.7 % (21.0-51.0) 08/15/17 04:30 [place] % (Auto) 9.1 % (0.0-13.0) 08/15/17 04:30 Eos % (Auto) 3.8 % (0.9-2.9) H 08/15/17 04:30 Baso % (Auto) 0.3 % (0.2-1.0) 08/15/17 04:30 Neut # (Auto) 6.3 x10^3/uL (2.2-4.8) H 08/15/17 04:30 Lymph # (Auto) 3.3 X10^3/uL (1.3-2.9) H 08/15/17 04:30 [place] # (Auto) 1.0 x10^3/uL (0.3-0.8) H 08/15/17 04:30 Eos # (Auto) 0.4 x10^3/uL (0.0-0.2) H 08/15/17 04:30 Baso # (Auto) 0.0 X10^3/uL (0.0-0.1) 08/15/17 04:30 Absolute Nucleated RBC 0.1 /100WBC 08/15/17 04:30 Total Counted 100 08/12/17 15:40 Neutrophils % (Manual) 88 % (39-76) H 08/12/17 15:40 Band Neutrophils % 2 % (0-10) 08/12/17 15:40 Lymphocytes % (Manual) 5 % (13-43) L 08/12/17 15:40 Monocytes % (Manual) 4 % (4-9) 08/12/17 15:40 Eosinophils % (Manual) 1 % (0-6) 08/12/17 15:40 Plt Morphology Comment Normal (NORMAL) 08/12/17 15:40 RBC Morphology Normal (NORMAL) 08/12/17 15:40 Sodium 135 mmol/L (136-145) L 08/15/17 04:30 Corrected Sodium 137 mmol/L (136-145) 08/15/17 04:30 Potassium 4.0 mmol/L (3.5-5.1) 08/15/17 04:30 Chloride 100 mmol/L (98-107) 08/15/17 04:30 Carbon Dioxide 28.7 mmol/L (21-32) 08/15/17 04:30 BUN 10 mg/dL (7-18) 08/15/17 04:30 Creatinine 0.55 mg/dL (0.55-1.02) 08/15/17 04:30 Est GFR (MDRD) Af Amer > 60 (>60) 08/15/17 04:30 Est GFR (MDRD) Non-Af > 60 (>60) 08/15/17 04:30 Glucose 180 mg/dL (65-99) H 08/15/17 04:30 POC Glucose (mg/dL) 218 mg/dL (65-99) H 08/15/17 11:00 Calcium 7.5 mg/dL (8.5-10.1) L 08/15/17 04:30 Corrected Calcium 8.9 mg/dL (8.5-10.1) 08/15/17 04:30 Magnesium 2.2 mg/dL (1.7-2.9) 08/15/17 04:30 Total Bilirubin 0.30 mg/dL (0.2-1.0) 08/15/17 04:30 AST 14 Units/L (15-37) L 08/15/17 04:30 ALT 18 Units/L (12-78) 08/15/17 04:30 Alkaline Phosphatase 117 Units/L (46-116) H 08/15/17 04:30 Total Protein 6.6 g/dL (6.4-8.2) 08/15/17 04:30 Albumin 2.3 g/dL (3.4-5.0) L 08/15/17 04:30 Globulin 4.3 g/dL (2.5-4.5) 08/15/17 04:30 Albumin/Globulin Ratio 0.5 Ratio (1.1-2.1) L 08/15/17 04:30 Specimen Type Clean catch urine 08/13/17 14:02 Urine Color Yellow (YELLOW) 08/13/17 14:02 Urine Appearance Cloudy (CLEAR) 08/13/17 14:02 Urine pH 6.0 (5.0 - 8.0) 08/13/17 14:02 Ur Specific [place] 1.020 (1.000-1.030) 08/13/17 14:02 Urine Protein 3+ (NEGATIVE) 08/13/17 14:02 Urine Glucose (UA) 3+ (NEGATIVE) 08/13/17 14:02 Urine Ketones 2+ (NEGATIVE) 08/13/17 14:02 Urine Occult Blood 4+ (NEGATIVE) 08/13/17 14:02 Urine Nitrite Positive (NEGATIVE) 08/13/17 14:02 Urine Bilirubin Negative (NEGATIVE) 08/13/17 14:02 Urine Urobilinogen Normal (NORMAL) 08/13/17 14:02 Ur Leukocyte Esterase 3+ (NEGATIVE) 08/13/17 14:02 Urine RBC 30-50 /HPF (NONE SEEN) 08/13/17 14:02 Urine WBC Tntc /HPF (NONE SEEN) 08/13/17 14:02 Ur Squamous Epith Cells Few /HPF (NEGATIVE) 08/13/17 14:02 Urine Bacteria 3+ /HPF (NEGATIVE) 08/13/17 14:02 Urine Mucus Few /HPF (NEGATIVE) 08/13/17 14:02 Ur Culture Indicated? Yes/culture set up 08/13/17 14:02 - Plan (1) Right humeral fracture Status: Acute Qualifiers: Encounter type: initial encounter Humerus Location: shaft Fracture type: closed Fracture morphology: spiral Fracture alignment: displaced Qualified Code(s): S42.341A - Displaced spiral fracture of shaft of humerus, right arm, initial encounter for closed fracture Plan: RIGHT SHOULDER IMMOBILIZER, ORTHO CONSULT. PAIN AND NASUEA CONTROL CONTINUE HOME MEDS. BP AND BS MONITORING. UTI, IV ATBX, ENCOURAGE PO HYDRATION (2) Intractable pain Status: Acute (3) Diabetes Status: Acute (4) Fall Status: Acute (5) UTI (urinary tract infection) Status: Acute
[2017-08-15] MEDS: HumuLIN R SUBCUT PRN (18:13)
--- NOTE | 2017-08-15 18:33 | RAD ---
HISTORY: Hypertension, preoperative evaluation for humerus fracture surgery Study: Single view chest Comparison: 06/18/2017 Findings: Minimal subsegmental atelectasis is seen at the left lung base. No infiltrate, effusion or pneumothor ax identified. The cardiac and mediastinal contours are within normal limits. The soft tissues are u nremarkable. IMPRESSION: 1. No acute cardiopulmonary abnormality. Reported By:
[2017-08-15] MEDS: COLACE CAP 100 MG PO SCH (21:27)
[2017-08-16 05:17] LABS: BASOPHILS # (AUTO) 0.1 X10^3/uL (0.0-0.1); BASOPHILS % (AUTO) 0.7 % (0.2-1.0); EOSINOPHILS # (AUTO) 0.6 x10^3/uL (0.0-0.2); EOSINOPHILS % (AUTO) 5.7 % (0.9-2.9); HEMATOCRIT 35.6 % (36.0-47.0); HEMOGLOBIN 11.8 g/dL (12.0-16.0); LYMPHOCYTES # (AUTO) 3.1 X10^3/uL (1.3-2.9); LYMPHOCYTES % (AUTO) 27.7 % (21.0-51.0); MEAN CORPUSCULAR HEMOGLOBIN 28.6 pg (27.0-34.0); MEAN CORPUSCULAR HGB CONC 33.1 g/dL (33.0-35.0); MEAN CORPUSCULAR VOLUME 86.5 fL (80.0-100.0); MEAN PLATELET VOLUME 9.6 fL (7.4-11.0); MONOCYTES # (AUTO) 1.1 x10^3/uL (0.3-0.8); MONOCYTES % (AUTO) 9.7 % (0.0-13.0); NEUTROPHILS # (AUTO) 6.3 x10^3/uL (2.2-4.8); NEUTROPHILS % (AUTO) 56.2 % (42.0-75.0); PLATELET COUNT 383 X10^3/uL (150.0-450.0); RED BLOOD COUNT 4.12 X10^6/uL (3.5-5.4); RED CELL DISTRIBUTION WIDTH 14.6 % (11.6-16.5); WHITE BLOOD COUNT 11.3 X10^3/uL (3.6-10.0)
[2017-08-16 05:30] LABS: ALANINE AMINOTRANSFERASE 17 Units/L (12-78); ALBUMIN 2.3 g/dL (3.4-5.0); ALKALINE PHOSPHATASE 118 Units/L (46-116); ASPARTATE AMINO TRANSFERASE 8 Units/L (15-37); BLOOD UREA NITROGEN 9 mg/dL (7-18); CALCIUM 7.7 mg/dL (8.5-10.1); CARBON DIOXIDE 27.2 mmol/L (21-32); CHLORIDE 101 mmol/L (98-107); COR CA(FOR HYPOALB) 9.1 mg/dL (8.5-10.1); COR NA(FOR HYPERGLY) 138 mmol/L (136-145); CREATININE 0.59 mg/dL (0.55-1.02); SODIUM 136 mmol/L (136-145); TOTAL PROTEIN 6.7 g/dL (6.4-8.2); eGFR NON BLACK RACES > 60 (>60)
[2017-08-16] MEDS: NS 1000 ML 1,000 ML IV SCH ×3 (05:37→14:00)
[2017-08-16] MEDS: MILK OF MAGNESIA PO SCH ×2 (08:25→21:28)
[2017-08-16] MEDS: NORCO 5/325 MG TAB PO SCH ×2 (08:25→21:28)
[2017-08-16] MEDS: NYSTATIN POWDER TOP SCH ×2 (08:26→21:28)
[2017-08-16] MEDS: NORVASC TAB 5 MG PO SCH (08:26)
[2017-08-16] MEDS: ROCEPHIN VIAL 1 GRAM 1 G in NS 100 ML IV + SPIKE MINIBAG* 100 ML IV SCH (08:26)
[2017-08-16] MEDS ORDERED: NORCO 5/325 MG TAB PO PRN (14:15)
--- NOTE | 2017-08-16 17:13 | DR.CONSULT ---
Consult - Consultation for Day of: Date: 08/16/17 - Chief Complaint Chief Complaint: RIGHT arm pain,, deformity - Allergies Allergies/Adverse Reactions: Allergies Allergy/AdvReac Type Severity Reaction Status Date / Time LIZBETH Inhibitors Allergy Verified 06/27/17 12:03 - History of Present Illness History of Present Illness: patient's 77-year-old female presented to the emergency room with severe pain and deformity in the RIGHT arm. Patient is an old patient of mine who was treated with a proximal humerus fracture with open reduction and fixation with a plate and screw. Patient was discharged to the senior care. Patient recovered well in the senior care and was discharged back to home. Recently when the patient was returning back to her home and entering the home as she had a slip and fall and to break the fall she used her RIGHT shoulder. When she used her RIGHT hand to break the fall she noticed severe pain and pop. She was brought immediately to the emergency room. Emergency room examination and x-rays were done. It shows as spiral fracture off the humeral shaft inferior to the fixation off for the distal end of the plate. The proximal humerus fracture has healed well. She has as spiral fracture off the middle 3rd of off further shaft distal to the plate fixation. - Past Medical History Past Medical History: Anemia, Dementia, Diabetes, Kidney Stones - Past Surgical History Surgical History: Hysterectomy, Ortho Surgery Additional Surgical History: SPLEENECTOMY - Social History Does patient currently use any type of tobacco product: No Have you used tobacco products in the last 12 months: No Type of Tobacco Use: None Does any household member use tobacco: Yes Alcohol Use: None Drug Use: None - Medications Home Medications: Hydrocodone-Acet 5 mg/325 mg [NORCO 5 MG/325 MG *] 1 tab PO BID 08/13/17 [ History Confirmed 08/13/17] Tramadol HCl [ULTRAM 50 MG *] 1 tab PO TID PRN 08/13/17 [History Confirmed 08/13] - Review of Systems Constitutional: No Symptoms Reported Eyes: No Symptoms Reported ENT: No Symptoms Reported Respiratory: No Symptoms Reported Cardiovascular: No Symptoms Reported Gastrointestinal: No Symptoms Reported Genitourinary: No Symptoms Reported Musculoskeletal: Shoulder Pain Skin: No Symptoms Reported Neurological: No Symptoms Reported - Physical Exam Vital Signs: Temperature 98.5 F Pulse Rate [Left Brachial] 81 Pulse Rate 80 Respiratory Rate 18 Blood Pressure [Left Arm] 145/64 Blood Pressure 162/70 O2 Sat by Pulse Oximetry 93 Oriented: Normal Eyes: Normal Ear: Normal Nose: Normal Throat: Normal Respiratory: Clear Throughout Cardiovascular: Normal : Normal Auscultation: Bowel Sounds: Normal Palpation: Normal Tenderness: Normal Musculoskeletal: Right, Shoulder, Swelling, Tender, Deformity, Instability, Crepitance (examination the RIGHT shoulder is done. Well healed old surgical scar noted. The bruising noted. Deformity noted. Abnormal mobility and Patient's noted. Distal neurovascularly intact. Patient to radial nerve intact.) Psychiatric: Normal Mood Description: Calm Speech Pattern: Clear - Plan Plan: patient has a humeral shaft fracture distal to the fixation of the proximal humerus. Natural history and treatment discussion was done with the family. Patient wants to proceed with surgical intervention. Patient has been posted for surgery. The disk and benefits were discussed with them. Radial nerve injury, nonunion, nonunion, need for further procedures, stiffness of the shoulder was discussed with them. They understood and verbalized the same. Patient has been posted for surgery.
--- NOTE | 2017-08-16 17:40 | PCM.PROG ---
Progress Note - Progress Note for Day of Date: 08/16/17 - Subjective Subjective: 77WF ER ADMISSION AFTER FALL WITH CO RIGHT ARM PAIN, NAUSEA DUE TO PAIN. PT HAS FRACUTED RIGHT HUMERUS. PT IS CURRENTLY CO INTRACTABLE PAIN TO RIGHT ARM, CURRENTLY TAKING IV OPIOIDS FOR PAIN CONTROL AND HAS UTI, CULTURE REVEALED ECOLI, PT CURRENTLY ON IV ATBX. PT IS NPO THIS AM , HAD EKG AND CXR ON 08/15. DR CASTAÑEDA CONSULTING FOR POSSIBLE SURGICAL INTERVENTION - Past Medical Family Social History Past Med/Fam/Surg Hx: No changes since H&P Allergies: Allergies LIZBETH Inhibitors Allergy (Verified 06/27/17 12:03) - Review of Systems ROS: No change since H&P - Vital Signs and I&O's Vital Signs: Temperature 98.5 F Pulse Rate [Left Brachial] 81 Pulse Rate 80 Respiratory Rate 18 Blood Pressure [Left Arm] 145/64 Blood Pressure 162/70 O2 Sat by Pulse Oximetry 93 Intake and Output: Intake & Output 08/14/17 08/15/17 08/16/17 08/17/17 11:59 11:59 11:59 11:59 Intake Total 855 1546 1380 600 Balance 855 1546 1380 600 - Physical Exam Oriented: Normal Eyes: Normal Ear: Normal Nose: Normal Throat: Normal Respiratory: Normal Cardiovascular: Normal : Normal Auscultation: Bowel Sounds: Normal Tenderness: Normal Skin: Decreased Turgur Musculoskeletal: Right, Shoulder, Swelling, Tender, Deformity, Instability, Crepitance (examination the RIGHT shoulder is done. Well healed old surgical scar noted. The bruising noted. Deformity noted. Abnormal mobility and Patient's noted. Distal neurovascularly intact. Patient to radial nerve intact.) Psychiatric: Normal Mood Description: Calm Speech Pattern: Clear - Laboratory and Diagnostics Result Diagrams: 08/16/17 04:57 08/16/17 04:57 Labs: 08/13/17 14:02 Urine,Clean Catch Urine Culture - Final Escherichia Coli Laboratory WBC 11.3 X10^3/uL (3.6-10.0) H 08/16/17 04:57 RBC 4.12 X10^6/uL (3.5-5.4) 08/16/17 04:57 Hgb 11.8 g/dL (12.0-16.0) L 08/16/17 04:57 Hct 35.6 % (36.0-47.0) L 08/16/17 04:57 MCV 86.5 fL (80.0-100.0) 08/16/17 04:57 MCH 28.6 pg (27.0-34.0) 08/16/17 04:57 MCHC 33.1 g/dL (33.0-35.0) 08/16/17 04:57 RDW 14.6 % (11.6-16.5) 08/16/17 04:57 Plt Count 383 X10^3/uL (150.0-450.0) 08/16/17 04:57 Plt Count Comment Adequate (ADEQUATE) 08/12/17 15:40 MPV 9.6 fL (7.4-11.0) 08/16/17 04:57 Neut % (Auto) 56.2 % (42.0-75.0) 08/16/17 04:57 Lymph % (Auto) 27.7 % (21.0-51.0) 08/16/17 04:57 [place] % (Auto) 9.7 % (0.0-13.0) 08/16/17 04:57 Eos % (Auto) 5.7 % (0.9-2.9) H 08/16/17 04:57 Baso % (Auto) 0.7 % (0.2-1.0) 08/16/17 04:57 Neut # (Auto) 6.3 x10^3/uL (2.2-4.8) H 08/16/17 04:57 Lymph # (Auto) 3.1 X10^3/uL (1.3-2.9) H 08/16/17 04:57 [place] # (Auto) 1.1 x10^3/uL (0.3-0.8) H 08/16/17 04:57 Eos # (Auto) 0.6 x10^3/uL (0.0-0.2) H 08/16/17 04:57 Baso # (Auto) 0.1 X10^3/uL (0.0-0.1) 08/16/17 04:57 Absolute Nucleated RBC 0.1 /100WBC 08/16/17 04:57 Total Counted 100 08/12/17 15:40 Neutrophils % (Manual) 88 % (39-76) H 08/12/17 15:40 Band Neutrophils % 2 % (0-10) 08/12/17 15:40 Lymphocytes % (Manual) 5 % (13-43) L 08/12/17 15:40 Monocytes % (Manual) 4 % (4-9) 08/12/17 15:40 Eosinophils % (Manual) 1 % (0-6) 08/12/17 15:40 Plt Morphology Comment Normal (NORMAL) 08/12/17 15:40 RBC Morphology Normal (NORMAL) 08/12/17 15:40 Sodium 136 mmol/L (136-145) 08/16/17 04:57 Corrected Sodium 138 mmol/L (136-145) 08/16/17 04:57 Potassium 4.0 mmol/L (3.5-5.1) 08/16/17 04:57 Chloride 101 mmol/L (98-107) 08/16/17 04:57 Carbon Dioxide 27.2 mmol/L (21-32) 08/16/17 04:57 BUN 9 mg/dL (7-18) 08/16/17 04:57 Creatinine 0.59 mg/dL (0.55-1.02) 08/16/17 04:57 Est GFR (MDRD) Af Amer > 60 (>60) 08/16/17 04:57 Est GFR (MDRD) Non-Af > 60 (>60) 08/16/17 04:57 Glucose 174 mg/dL (65-99) H 08/16/17 04:57 POC Glucose (mg/dL) 268 mg/dL (65-99) H 08/16/17 16:28 Calcium 7.7 mg/dL (8.5-10.1) L 08/16/17 04:57 Corrected Calcium 9.1 mg/dL (8.5-10.1) 08/16/17 04:57 Magnesium 2.2 mg/dL (1.7-2.9) 08/15/17 04:30 Total Bilirubin 0.30 mg/dL (0.2-1.0) 08/16/17 04:57 AST 8 Units/L (15-37) L 08/16/17 04:57 ALT 17 Units/L (12-78) 08/16/17 04:57 Alkaline Phosphatase 118 Units/L (46-116) H 08/16/17 04:57 Total Protein 6.7 g/dL (6.4-8.2) 08/16/17 04:57 Albumin 2.3 g/dL (3.4-5.0) L 08/16/17 04:57 Globulin 4.4 g/dL (2.5-4.5) 08/16/17 04:57 Albumin/Globulin Ratio 0.5 Ratio (1.1-2.1) L 08/16/17 04:57 Specimen Type Clean catch urine 08/13/17 14:02 Urine Color Yellow (YELLOW) 08/13/17 14:02 Urine Appearance Cloudy (CLEAR) 08/13/17 14:02 Urine pH 6.0 (5.0 - 8.0) 08/13/17 14:02 Ur Specific [place] 1.020 (1.000-1.030) 08/13/17 14:02 Urine Protein 3+ (NEGATIVE) 08/13/17 14:02 Urine Glucose (UA) 3+ (NEGATIVE) 08/13/17 14:02 Urine Ketones 2+ (NEGATIVE) 08/13/17 14:02 Urine Occult Blood 4+ (NEGATIVE) 08/13/17 14:02 Urine Nitrite Positive (NEGATIVE) 08/13/17 14:02 Urine Bilirubin Negative (NEGATIVE) 08/13/17 14:02 Urine Urobilinogen Normal (NORMAL) 08/13/17 14:02 Ur Leukocyte Esterase 3+ (NEGATIVE) 08/13/17 14:02 Urine RBC 30-50 /HPF (NONE SEEN) 08/13/17 14:02 Urine WBC Tntc /HPF (NONE SEEN) 08/13/17 14:02 Ur Squamous Epith Cells Few /HPF (NEGATIVE) 08/13/17 14:02 Urine Bacteria 3+ /HPF (NEGATIVE) 08/13/17 14:02 Urine Mucus Few /HPF (NEGATIVE) 08/13/17 14:02 Ur Culture Indicated? Yes/culture set up 08/13/17 14:02 - Plan (1) Right humeral fracture Status: Acute Qualifiers: Encounter type: initial encounter Humerus Location: shaft Fracture type: closed Fracture morphology: spiral Fracture alignment: displaced Qualified Code(s): S42.341A - Displaced spiral fracture of shaft of humerus, right arm, initial encounter for closed fracture Plan: RIGHT SHOULDER IMMOBILIZER, ORTHO CONSULT. PAIN AND NASUEA, NPO FOR SURGICAL CONSULT. EKG AND CXR ON 08/15 FOR PRE-OPERATIVE EVALUATION (2) Intractable pain Status: Acute (3) Diabetes Status: Acute (4) Fall Status: Acute (5) UTI (urinary tract infection) Status: Acute Plan: ENCOURAGE HYDRATION. IV ATBX THERAPY
[2017-08-16] MEDS: COLACE CAP 100 MG PO SCH (21:27)
[2017-08-16] MEDS: VISTARIL PO PRN (21:29)
[2017-08-17 05:04] LABS: BASOPHILS % (AUTO) 0.5 % (0.2-1.0); EOSINOPHILS # (AUTO) 0.4 x10^3/uL (0.0-0.2); EOSINOPHILS % (AUTO) 4.4 % (0.9-2.9); HEMATOCRIT 36.8 % (36.0-47.0); HEMOGLOBIN 12.1 g/dL (12.0-16.0); LYMPHOCYTES # (AUTO) 2.7 X10^3/uL (1.3-2.9); LYMPHOCYTES % (AUTO) 30.6 % (21.0-51.0); MEAN CORPUSCULAR HEMOGLOBIN 28.6 pg (27.0-34.0); MEAN CORPUSCULAR HGB CONC 32.9 g/dL (33.0-35.0); MEAN PLATELET VOLUME 10.2 fL (7.4-11.0); MONOCYTES # (AUTO) 0.9 x10^3/uL (0.3-0.8); MONOCYTES % (AUTO) 10.4 % (0.0-13.0); NEUTROPHILS # (AUTO) 4.8 x10^3/uL (2.2-4.8); NEUTROPHILS % (AUTO) 54.1 % (42.0-75.0); PLATELET COUNT 226 X10^3/uL (150.0-450.0); RED BLOOD COUNT 4.23 X10^6/uL (3.5-5.4); RED CELL DISTRIBUTION WIDTH 14.7 % (11.6-16.5); WHITE BLOOD COUNT 8.9 X10^3/uL (3.6-10.0)
[2017-08-17 05:28] LABS: ALANINE AMINOTRANSFERASE 17 Units/L (12-78); ALBUMIN 2.3 g/dL (3.4-5.0); ALKALINE PHOSPHATASE 116 Units/L (46-116); ASPARTATE AMINO TRANSFERASE 17 Units/L (15-37); BLOOD UREA NITROGEN 11 mg/dL (7-18); CALCIUM 7.9 mg/dL (8.5-10.1); CARBON DIOXIDE 28.4 mmol/L (21-32); CHLORIDE 100 mmol/L (98-107); COR CA(FOR HYPOALB) 9.3 mg/dL (8.5-10.1); COR NA(FOR HYPERGLY) 136 mmol/L (136-145); CREATININE 0.51 mg/dL (0.55-1.02); SODIUM 134 mmol/L (136-145); TOTAL PROTEIN 6.7 g/dL (6.4-8.2); eGFR NON BLACK RACES > 60 (>60)
[2017-08-17] MEDS: NS 1000 ML 1,000 ML IV SCH (05:38)
[2017-08-17] MEDS: ROCEPHIN VIAL 1 GRAM 1 G in NS 100 ML IV + SPIKE MINIBAG* 100 ML IV SCH (08:46)
[2017-08-17] MEDS: NORCO 5/325 MG TAB PO SCH ×2 (08:46→20:49)
[2017-08-17] MEDS: NORVASC TAB 5 MG PO SCH (08:46)
[2017-08-17] MEDS: MILK OF MAGNESIA PO SCH (08:46)
[2017-08-17] MEDS: NYSTATIN POWDER TOP SCH ×2 (08:47→20:50)
[2017-08-17] MEDS ORDERED: MILK OF MAGNESIA PO PRN (11:00)
--- NOTE | 2017-08-17 18:21 | PCM.PROG ---
Progress Note - Progress Note for Day of Date: 08/17/17 - Subjective Subjective: 77WF ER ADMISSION AFTER FALL WITH CO RIGHT ARM PAIN, NAUSEA DUE TO PAIN. PT HAS FRACUTED RIGHT HUMERUS. PT IS CURRENTLY CO INTRACTABLE PAIN TO RIGHT ARM, CURRENTLY TAKING IV OPIOIDS FOR PAIN CONTROL AND HAS UTI, CULTURE REVEALED ECOLI, PT CURRENTLY ON IV ATBX. PT IS NPO THIS AM , HAD EKG AND CXR ON 08/15. DR CASTAÑEDA CONSULTING FOR SURGERY ON MONDAY - Past Medical Family Social History Past Med/Fam/Surg Hx: No changes since H&P Allergies: Allergies LIZBETH Inhibitors Allergy (Verified 06/27/17 12:03) - Review of Systems ROS: No change since H&P - Vital Signs and I&O's Vital Signs: Temperature 98.5 F Pulse Rate [Left Brachial] 83 Pulse Rate 80 Respiratory Rate 18 Blood Pressure [Left Arm] 154/74 Blood Pressure 162/70 O2 Sat by Pulse Oximetry 93 Intake and Output: Intake & Output 08/15/17 08/16/17 08/17/17 08/18/17 11:59 11:59 11:59 11:59 Intake Total 1546 1380 1020 600 Balance 1546 1380 1020 600 - Physical Exam Oriented: Normal Eyes: Normal Ear: Normal Nose: Normal Throat: Normal Respiratory: Normal Cardiovascular: Normal : Normal Auscultation: Bowel Sounds: Normal Tenderness: Normal Skin: Decreased Turgur Musculoskeletal: Right, Shoulder, Swelling, Tender, Deformity, Instability, Crepitance (examination the RIGHT shoulder is done. Well healed old surgical scar noted. The bruising noted. Deformity noted. Abnormal mobility and Patient's noted. Distal neurovascularly intact. Patient to radial nerve intact.) Psychiatric: Normal Mood Description: Calm Speech Pattern: Clear, Appropriate - Laboratory and Diagnostics Result Diagrams: 08/17/17 04:23 08/17/17 04:23 Labs: 08/13/17 14:02 Urine,Clean Catch Urine Culture - Final Escherichia Coli Laboratory WBC 8.9 X10^3/uL (3.6-10.0) 08/17/17 04:23 RBC 4.23 X10^6/uL (3.5-5.4) 08/17/17 04:23 Hgb 12.1 g/dL (12.0-16.0) 08/17/17 04:23 Hct 36.8 % (36.0-47.0) 08/17/17 04:23 MCV 87.0 fL (80.0-100.0) 08/17/17 04:23 MCH 28.6 pg (27.0-34.0) 08/17/17 04:23 MCHC 32.9 g/dL (33.0-35.0) L 08/17/17 04:23 RDW 14.7 % (11.6-16.5) 08/17/17 04:23 Plt Count 226 X10^3/uL (150.0-450.0) 08/17/17 04:23 Plt Count Comment Adequate (ADEQUATE) 08/12/17 15:40 MPV 10.2 fL (7.4-11.0) 08/17/17 04:23 Neut % (Auto) 54.1 % (42.0-75.0) 08/17/17 04:23 Lymph % (Auto) 30.6 % (21.0-51.0) 08/17/17 04:23 [place] % (Auto) 10.4 % (0.0-13.0) 08/17/17 04:23 Eos % (Auto) 4.4 % (0.9-2.9) H 08/17/17 04:23 Baso % (Auto) 0.5 % (0.2-1.0) 08/17/17 04:23 Neut # (Auto) 4.8 x10^3/uL (2.2-4.8) 08/17/17 04:23 Lymph # (Auto) 2.7 X10^3/uL (1.3-2.9) 08/17/17 04:23 [place] # (Auto) 0.9 x10^3/uL (0.3-0.8) H 08/17/17 04:23 Eos # (Auto) 0.4 x10^3/uL (0.0-0.2) H 08/17/17 04:23 Baso # (Auto) 0.0 X10^3/uL (0.0-0.1) 08/17/17 04:23 Absolute Nucleated RBC 0.1 /100WBC 08/17/17 04:23 Total Counted 100 08/12/17 15:40 Neutrophils % (Manual) 88 % (39-76) H 08/12/17 15:40 Band Neutrophils % 2 % (0-10) 08/12/17 15:40 Lymphocytes % (Manual) 5 % (13-43) L 08/12/17 15:40 Monocytes % (Manual) 4 % (4-9) 08/12/17 15:40 Eosinophils % (Manual) 1 % (0-6) 08/12/17 15:40 Plt Morphology Comment Normal (NORMAL) 08/12/17 15:40 RBC Morphology Normal (NORMAL) 08/12/17 15:40 Sodium 134 mmol/L (136-145) L 08/17/17 04:23 Corrected Sodium 136 mmol/L (136-145) 08/17/17 04:23 Potassium 4.4 mmol/L (3.5-5.1) 08/17/17 04:23 Chloride 100 mmol/L (98-107) 08/17/17 04:23 Carbon Dioxide 28.4 mmol/L (21-32) 08/17/17 04:23 BUN 11 mg/dL (7-18) 08/17/17 04:23 Creatinine 0.51 mg/dL (0.55-1.02) L 08/17/17 04:23 Est GFR (MDRD) Af Amer > 60 (>60) 08/17/17 04:23 Est GFR (MDRD) Non-Af > 60 (>60) 08/17/17 04:23 Glucose 184 mg/dL (65-99) H 08/17/17 04:23 POC Glucose (mg/dL) 258 mg/dL (65-99) H 08/17/17 16:19 Calcium 7.9 mg/dL (8.5-10.1) L 08/17/17 04:23 Corrected Calcium 9.3 mg/dL (8.5-10.1) 08/17/17 04:23 Magnesium 2.2 mg/dL (1.7-2.9) 08/15/17 04:30 Total Bilirubin 0.50 mg/dL (0.2-1.0) 08/17/17 04:23 AST 17 Units/L (15-37) 08/17/17 04:23 ALT 17 Units/L (12-78) 08/17/17 04:23 Alkaline Phosphatase 116 Units/L (46-116) 08/17/17 04:23 Total Protein 6.7 g/dL (6.4-8.2) 08/17/17 04:23 Albumin 2.3 g/dL (3.4-5.0) L 08/17/17 04:23 Globulin 4.4 g/dL (2.5-4.5) 08/17/17 04:23 Albumin/Globulin Ratio 0.5 Ratio (1.1-2.1) L 08/17/17 04:23 Specimen Type Clean catch urine 08/13/17 14:02 Urine Color Yellow (YELLOW) 08/13/17 14:02 Urine Appearance Cloudy (CLEAR) 08/13/17 14:02 Urine pH 6.0 (5.0 - 8.0) 08/13/17 14:02 Ur Specific [place] 1.020 (1.000-1.030) 08/13/17 14:02 Urine Protein 3+ (NEGATIVE) 08/13/17 14:02 Urine Glucose (UA) 3+ (NEGATIVE) 08/13/17 14:02 Urine Ketones 2+ (NEGATIVE) 08/13/17 14:02 Urine Occult Blood 4+ (NEGATIVE) 08/13/17 14:02 Urine Nitrite Positive (NEGATIVE) 08/13/17 14:02 Urine Bilirubin Negative (NEGATIVE) 08/13/17 14:02 Urine Urobilinogen Normal (NORMAL) 08/13/17 14:02 Ur Leukocyte Esterase 3+ (NEGATIVE) 08/13/17 14:02 Urine RBC 30-50 /HPF (NONE SEEN) 08/13/17 14:02 Urine WBC Tntc /HPF (NONE SEEN) 08/13/17 14:02 Ur Squamous Epith Cells Few /HPF (NEGATIVE) 08/13/17 14:02 Urine Bacteria 3+ /HPF (NEGATIVE) 08/13/17 14:02 Urine Mucus Few /HPF (NEGATIVE) 08/13/17 14:02 Ur Culture Indicated? Yes/culture set up 08/13/17 14:02 - Plan (1) Right humeral fracture Status: Acute Qualifiers: Encounter type: initial encounter Humerus Location: shaft Fracture type: closed Fracture morphology: spiral Fracture alignment: displaced Qualified Code(s): S42.341A - Displaced spiral fracture of shaft of humerus, right arm, initial encounter for closed fracture Plan: RIGHT SHOULDER IMMOBILIZER, ORTHO CONSULT. PAIN AND NASUEA, NPO FOR SURGICAL CONSULT. EKG AND CXR ON 08/15 FOR PRE-OPERATIVE EVALUATION (2) Intractable pain Status: Acute (3) Diabetes Status: Acute (4) Fall Status: Acute (5) UTI (urinary tract infection) Status: Acute Plan: ENCOURAGE HYDRATION. IV ATBX THERAPY
[2017-08-17] MEDS: COLACE CAP 100 MG PO SCH (20:48)
[2017-08-17] MEDS: HumuLIN R SUBCUT PRN (20:50)
[2017-08-18] MEDS: NYSTATIN POWDER TOP SCH ×2 (09:00→20:46)
[2017-08-18] MEDS: NORCO 5/325 MG TAB PO SCH ×2 (09:00→20:45)
[2017-08-18] MEDS: ROCEPHIN VIAL 1 GRAM 1 G in NS 100 ML IV + SPIKE MINIBAG* 100 ML IV SCH (09:00)
[2017-08-18] MEDS: NORVASC TAB 5 MG PO SCH (09:00)
[2017-08-18] MEDS ORDERED: BACTROBAN TOPICAL OINT ONE (10:31)
[2017-08-18] MEDS ORDERED: MARCAINE 0.25% INJ ONE (10:31)
[2017-08-18] MEDS ORDERED: HYDROGEN PEROXIDE 3% ONE (10:31)
[2017-08-18] MEDS ORDERED: ANCEF IV ONE (13:12)
[2017-08-18] MEDS ORDERED: LR 1000 ML IV 1,000 ML IV ONE ×2 (13:12→17:01)
[2017-08-18] MEDS ORDERED: FENTANYL INJ 250 mcg ONE (13:43)
[2017-08-18 14:09] LABS: ALANINE AMINOTRANSFERASE 16 Units/L (12-78); ALBUMIN 2.3 g/dL (3.4-5.0); ALKALINE PHOSPHATASE 115 Units/L (46-116); ASPARTATE AMINO TRANSFERASE 12 Units/L (15-37); BLOOD UREA NITROGEN 13 mg/dL (7-18); CALCIUM 7.8 mg/dL (8.5-10.1); CARBON DIOXIDE 26.2 mmol/L (21-32); CHLORIDE 100 mmol/L (98-107); COR CA(FOR HYPOALB) 9.2 mg/dL (8.5-10.1); COR NA(FOR HYPERGLY) 137 mmol/L (136-145); SODIUM 135 mmol/L (136-145); TOTAL PROTEIN 6.6 g/dL (6.4-8.2); eGFR NON BLACK RACES > 60 (>60)
[2017-08-18 14:10] LABS: BASOPHILS % (AUTO) 0.4 % (0.2-1.0); EOSINOPHILS # (AUTO) 0.4 x10^3/uL (0.0-0.2); EOSINOPHILS % (AUTO) 4.3 % (0.9-2.9); HEMATOCRIT 34.9 % (36.0-47.0); HEMOGLOBIN 11.7 g/dL (12.0-16.0); LYMPHOCYTES # (AUTO) 2.6 X10^3/uL (1.3-2.9); LYMPHOCYTES % (AUTO) 27.2 % (21.0-51.0); MEAN CORPUSCULAR HGB CONC 33.5 g/dL (33.0-35.0); MEAN CORPUSCULAR VOLUME 86.3 fL (80.0-100.0); MEAN PLATELET VOLUME 10.2 fL (7.4-11.0); MONOCYTES # (AUTO) 0.9 x10^3/uL (0.3-0.8); MONOCYTES % (AUTO) 9.2 % (0.0-13.0); NEUTROPHILS # (AUTO) 5.6 x10^3/uL (2.2-4.8); NEUTROPHILS % (AUTO) 58.9 % (42.0-75.0); PLATELET COUNT 364 X10^3/uL (150.0-450.0); RED BLOOD COUNT 4.04 X10^6/uL (3.5-5.4); RED CELL DISTRIBUTION WIDTH 14.8 % (11.6-16.5); WHITE BLOOD COUNT 9.4 X10^3/uL (3.6-10.0)
[2017-08-18] MEDS ORDERED: DIPRIVAN VIAL ONE (15:47)
[2017-08-18] MEDS ORDERED: SUPRANE IN ONE (15:47)
[2017-08-18] MEDS ORDERED: ROBINUL ONE (15:47)
[2017-08-18] MEDS ORDERED: QUELICIN (OR ANECTINE) ONE (15:47)
[2017-08-18] MEDS ORDERED: NORCURON INJ 10 MG VIAL ONE (15:47)
[2017-08-18] MEDS ORDERED: EPHEDRINE SULFATE INJ ONE (15:47)
[2017-08-18] MEDS ORDERED: ZOFRAN INJ 4 MG VIAL ONE (15:47)
[2017-08-18] MEDS ORDERED: BENADRYL INJ 50 MG VIAL IVP PRN (16:44)
[2017-08-18] MEDS ORDERED: REGLAN INJ 10 MG VIAL IVP PRN (16:44)
[2017-08-18] MEDS ORDERED: DILAUDID INJ IVP PRN ×2 (16:44→18:33)
[2017-08-18] MEDS ORDERED: ZOFRAN INJ 4 MG VIAL IVP PRN ×2 (16:44→18:33)
[2017-08-18] MEDS ORDERED: PHENERGAN INJ 25 MG IVP PRN (16:44)
[2017-08-18] MEDS: NS 1000 ML 1,000 ML IV SCH ×2 (17:35→20:46)
--- NOTE | 2017-08-18 18:04 | RAD ---
HUMERUS RADIOGRAPHS CLINICAL HISTORY: 77-year-old female, postoperative examination. COMPARISON: Radiographs of the right humerus 08/12/2017. FINDINGS: Two views of the right humerus demonstrate compression plate with anchoring screws transfixing a comm inuted midshaft humeral fracture. There is expected soft tissue edema and subcutaneous emphysema with overlying skin sharon present no radiographic evidence of immediate postoperative complication. IMPRESSION: Status post ORIF comminuted humeral fracture now in anatomic alignment without evidence of immediate postoperative complication. Reported By:
[2017-08-18] MEDS: MORPHINE SULFATE INJ 2 MG INJ IVP PRN (18:21)
[2017-08-18] MEDS ORDERED: MAGNESIUM SULFATE 1 GRAM/100 mL PREMIX 1 GM/100 ML BAG IV PRN (18:33)
[2017-08-18] MEDS ORDERED: BUTT CREAM (COMPOUND) TOP PRN (18:33)
[2017-08-18] MEDS ORDERED: POTASSIUM CHL 60 MEQ/NS 0.45% 500 ML IV PRN (18:33)
[2017-08-18] MEDS ORDERED: MILK OF MAGNESIA PO PRN (18:33)
[2017-08-18] MEDS ORDERED: POTASSIUM CHL 40 MEQ/NS 0.45% 500 ML IV PRN (18:33)
[2017-08-18] MEDS ORDERED: K-RIDER 10 MEQ/NS 100 ML 10 MEQ/100 ML BAG IV PRN (18:33)
[2017-08-18] MEDS ORDERED: K-LYTE EFFERVESCENT PO PRN (18:33)
[2017-08-18] MEDS ORDERED: VISTARIL PO PRN (18:33)
[2017-08-18] MEDS ORDERED: POTASSIUM CHLORIDE LIQ 20 MEQ UDC PO PRN (18:33)
[2017-08-18] MEDS ORDERED: ULTRAM PO PRN (18:33)
[2017-08-18] MEDS: HumuLIN R SUBCUT PRN ×2 (18:35→20:47)
[2017-08-18] MEDS: COLACE CAP 100 MG PO SCH (20:44)
[2017-08-18] MEDS: SNACK - Diabetic Appropriate PO SCH (20:44)
[2017-08-18] MEDS ORDERED: ANCEF VIAL 1 GRAM 2 G in NS 100 ML IV 100 ML IV SCH ×4 (22:00)
[2017-08-18] MEDS ORDERED: ANCEF IV SCH ×4 (22:00)
[2017-08-18] MEDS ORDERED: NS IV SCH ×4 (22:00)
[2017-08-18] MEDS: ANCEF VIAL 1 GRAM 1 G in NS 100 ML IV + SPIKE MINIBAG* 100 ML IV SCH (22:00)
[2017-08-19] MEDS: NORCO 5/325 MG TAB PO PRN ×2 (00:27→14:14)
[2017-08-19] MEDS: ANCEF VIAL 1 GRAM 1 G in NS 100 ML IV + SPIKE MINIBAG* 100 ML IV SCH ×3 (05:03→21:30)
[2017-08-19] MEDS: HumuLIN R SUBCUT PRN ×3 (05:35→17:48)
[2017-08-19 06:16] LABS: BASOPHILS % (AUTO) 0.3 % (0.2-1.0); EOSINOPHILS % (AUTO) 0.2 % (0.9-2.9); HEMATOCRIT 32.3 % (36.0-47.0); HEMOGLOBIN 10.6 g/dL (12.0-16.0); LYMPHOCYTES # (AUTO) 1.7 X10^3/uL (1.3-2.9); LYMPHOCYTES % (AUTO) 12.3 % (21.0-51.0); MEAN CORPUSCULAR HEMOGLOBIN 28.4 pg (27.0-34.0); MEAN CORPUSCULAR HGB CONC 32.9 g/dL (33.0-35.0); MEAN CORPUSCULAR VOLUME 86.6 fL (80.0-100.0); MEAN PLATELET VOLUME 10.2 fL (7.4-11.0); MONOCYTES % (AUTO) 7.6 % (0.0-13.0); NEUTROPHILS # (AUTO) 10.9 x10^3/uL (2.2-4.8); NEUTROPHILS % (AUTO) 79.6 % (42.0-75.0); PLATELET COUNT 371 X10^3/uL (150.0-450.0); RED BLOOD COUNT 3.73 X10^6/uL (3.5-5.4); RED CELL DISTRIBUTION WIDTH 14.7 % (11.6-16.5); WHITE BLOOD COUNT 13.7 X10^3/uL (3.6-10.0)
[2017-08-19 06:40] LABS: BLOOD UREA NITROGEN 16 mg/dL (7-18); CALCIUM 7.8 mg/dL (8.5-10.1); CARBON DIOXIDE 26.8 mmol/L (21-32); CHLORIDE 100 mmol/L (98-107); COR NA(FOR HYPERGLY) 138 mmol/L (136-145); CREATININE 0.62 mg/dL (0.55-1.02); SODIUM 134 mmol/L (136-145); eGFR NON BLACK RACES > 60 (>60)
[2017-08-19] MEDS: NORCO 5/325 MG TAB PO SCH ×2 (08:30→20:23)
[2017-08-19] MEDS: NORVASC TAB 5 MG PO SCH (08:31)
[2017-08-19] MEDS: ROCEPHIN VIAL 1 GRAM 1 G in NS 100 ML IV + SPIKE MINIBAG* 100 ML IV SCH (08:31)
[2017-08-19] MEDS: NYSTATIN POWDER TOP SCH ×2 (11:01→20:24)
[2017-08-19] MEDS: NS 1000 ML 1,000 ML IV SCH (11:02)
--- NOTE | 2017-08-19 13:02 | PCM.PROG ---
Progress Note - Progress Note for Day of Date: 08/19/17 - Subjective Subjective: 77WF ER ADMISSION AFTER FALL WITH CO RIGHT ARM PAIN, NAUSEA DUE TO PAIN. PT HAS FRACUTED RIGHT HUMERUS. S/P SURGICAL REPAIR, CONTINUE PAIN CONTROL AND HAS UTI, CULTURE REVEALED ECOLI, PT CURRENTLY ON IV ATBX. PT CO RUE PAIN THIS AM, CONTINUE ORTHO POST OP CARE - Past Medical Family Social History Past Med/Fam/Surg Hx: No changes since H&P Allergies: Allergies LIZBETH Inhibitors Allergy (Verified 06/27/17 12:03) - Review of Systems ROS: No change since H&P - Vital Signs and I&O's Vital Signs: Temperature 98.3 F Pulse Rate [Left Brachial] 89 Pulse Rate 91 Respiratory Rate 18 Blood Pressure [Left Arm] 173/74 Blood Pressure 131/61 O2 Sat by Pulse Oximetry 100 Intake and Output: Intake & Output 08/17/17 08/18/17 08/19/17 08/20/17 11:59 11:59 11:59 11:59 Intake Total 1020 / 1020 840 / 840 2465 / 2465 Output Total 200 / 200 Balance 1020 / 1020 840 / 840 2265 / 2265 - Physical Exam Oriented: Normal Eyes: Normal Ear: Normal Nose: Normal Throat: Normal Respiratory: Normal Cardiovascular: Normal : Normal Auscultation: Bowel Sounds: Normal Tenderness: Normal Skin: Decreased Turgur Musculoskeletal: Right, Shoulder, Swelling, Tender, Deformity, Instability, Crepitance (examination the RIGHT shoulder is done. Well healed old surgical scar noted. The bruising noted. Deformity noted. Abnormal mobility and Patient's noted. Distal neurovascularly intact. Patient to radial nerve intact.) Psychiatric: Normal Mood Description: Calm Speech Pattern: Clear, Appropriate - Laboratory and Diagnostics Result Diagrams: 08/19/17 04:46 08/19/17 04:46 Labs: 08/13/17 14:02 Urine,Clean Catch Urine Culture - Final Escherichia Coli Laboratory WBC 13.7 X10^3/uL (3.6-10.0) H 08/19/17 04:46 RBC 3.73 X10^6/uL (3.5-5.4) 08/19/17 04:46 Hgb 10.6 g/dL (12.0-16.0) L 08/19/17 04:46 Hct 32.3 % (36.0-47.0) L 08/19/17 04:46 MCV 86.6 fL (80.0-100.0) 08/19/17 04:46 MCH 28.4 pg (27.0-34.0) 08/19/17 04:46 MCHC 32.9 g/dL (33.0-35.0) L 08/19/17 04:46 RDW 14.7 % (11.6-16.5) 08/19/17 04:46 Plt Count 371 X10^3/uL (150.0-450.0) 08/19/17 04:46 Plt Count Comment Adequate (ADEQUATE) 08/12/17 15:40 MPV 10.2 fL (7.4-11.0) 08/19/17 04:46 Neut % (Auto) 79.6 % (42.0-75.0) H 08/19/17 04:46 Lymph % (Auto) 12.3 % (21.0-51.0) L 08/19/17 04:46 [place] % (Auto) 7.6 % (0.0-13.0) 08/19/17 04:46 Eos % (Auto) 0.2 % (0.9-2.9) L 08/19/17 04:46 Baso % (Auto) 0.3 % (0.2-1.0) 08/19/17 04:46 Neut # (Auto) 10.9 x10^3/uL (2.2-4.8) H 08/19/17 04:46 Lymph # (Auto) 1.7 X10^3/uL (1.3-2.9) 08/19/17 04:46 [place] # (Auto) 1.0 x10^3/uL (0.3-0.8) H 08/19/17 04:46 Eos # (Auto) 0.0 x10^3/uL (0.0-0.2) 08/19/17 04:46 Baso # (Auto) 0.0 X10^3/uL (0.0-0.1) 08/19/17 04:46 Absolute Nucleated RBC 0.0 /100WBC 08/19/17 04:46 Total Counted 100 08/12/17 15:40 Neutrophils % (Manual) 88 % (39-76) H 08/12/17 15:40 Band Neutrophils % 2 % (0-10) 08/12/17 15:40 Lymphocytes % (Manual) 5 % (13-43) L 08/12/17 15:40 Monocytes % (Manual) 4 % (4-9) 08/12/17 15:40 Eosinophils % (Manual) 1 % (0-6) 08/12/17 15:40 Plt Morphology Comment Normal (NORMAL) 08/12/17 15:40 RBC Morphology Normal (NORMAL) 08/12/17 15:40 Sodium 134 mmol/L (136-145) L 08/19/17 04:46 Corrected Sodium 138 mmol/L (136-145) 08/19/17 04:46 Potassium 4.3 mmol/L (3.5-5.1) 08/19/17 04:46 Chloride 100 mmol/L (98-107) 08/19/17 04:46 Carbon Dioxide 26.8 mmol/L (21-32) 08/19/17 04:46 BUN 16 mg/dL (7-18) 08/19/17 04:46 Creatinine 0.62 mg/dL (0.55-1.02) 08/19/17 04:46 Est GFR (MDRD) Af Amer > 60 (>60) 08/19/17 04:46 Est GFR (MDRD) Non-Af > 60 (>60) 08/19/17 04:46 Glucose 267 mg/dL (65-99) H 08/19/17 04:46 POC Glucose (mg/dL) 176 mg/dL (65-99) H 08/18/17 06:15 Calcium 7.8 mg/dL (8.5-10.1) L 08/19/17 04:46 Corrected Calcium 9.2 mg/dL (8.5-10.1) 08/18/17 04:53 Magnesium 2.2 mg/dL (1.7-2.9) 08/15/17 04:30 Total Bilirubin 0.30 mg/dL (0.2-1.0) 08/18/17 04:53 AST 12 Units/L (15-37) L 08/18/17 04:53 ALT 16 Units/L (12-78) 08/18/17 04:53 Alkaline Phosphatase 115 Units/L (46-116) 08/18/17 04:53 Total Protein 6.6 g/dL (6.4-8.2) 08/18/17 04:53 Albumin 2.3 g/dL (3.4-5.0) L 08/18/17 04:53 Globulin 4.3 g/dL (2.5-4.5) 08/18/17 04:53 Albumin/Globulin Ratio 0.5 Ratio (1.1-2.1) L 08/18/17 04:53 Specimen Type Clean catch urine 08/13/17 14:02 Urine Color Yellow (YELLOW) 08/13/17 14:02 Urine Appearance Cloudy (CLEAR) 08/13/17 14:02 Urine pH 6.0 (5.0 - 8.0) 08/13/17 14:02 Ur Specific [place] 1.020 (1.000-1.030) 08/13/17 14:02 Urine Protein 3+ (NEGATIVE) 08/13/17 14:02 Urine Glucose (UA) 3+ (NEGATIVE) 08/13/17 14:02 Urine Ketones 2+ (NEGATIVE) 08/13/17 14:02 Urine Occult Blood 4+ (NEGATIVE) 08/13/17 14:02 Urine Nitrite Positive (NEGATIVE) 08/13/17 14:02 Urine Bilirubin Negative (NEGATIVE) 08/13/17 14:02 Urine Urobilinogen Normal (NORMAL) 08/13/17 14:02 Ur Leukocyte Esterase 3+ (NEGATIVE) 08/13/17 14:02 Urine RBC 30-50 /HPF (NONE SEEN) 08/13/17 14:02 Urine WBC Tntc /HPF (NONE SEEN) 08/13/17 14:02 Ur Squamous Epith Cells Few /HPF (NEGATIVE) 08/13/17 14:02 Urine Bacteria 3+ /HPF (NEGATIVE) 08/13/17 14:02 Urine Mucus Few /HPF (NEGATIVE) 08/13/17 14:02 Ur Culture Indicated? Yes/culture set up 08/13/17 14:02 - Plan (1) Right humeral fracture Status: Acute Qualifiers: Encounter type: initial encounter Humerus Location: shaft Fracture type: closed Fracture morphology: spiral Fracture alignment: displaced Qualified Code(s): S42.341A - Displaced spiral fracture of shaft of humerus, right arm, initial encounter for closed fracture Plan: RIGHT SHOULDER IMMOBILIZER, S/P SURGICAL INTERVENTION,. PAIN AND NASUEA CONTROL, POST OP CARE INSTRUCTIONS (2) Intractable pain Status: Acute (3) Diabetes Status: Acute (4) Fall Status: Acute (5) UTI (urinary tract infection) Status: Acute Plan: ENCOURAGE HYDRATION. IV ATBX THERAPY
[2017-08-19] MEDS: COLACE CAP 100 MG PO SCH (20:24)
[2017-08-19] MEDS: SNACK - Diabetic Appropriate PO SCH (20:24)
[2017-08-20] MEDS: MORPHINE SULFATE INJ 2 MG INJ IVP PRN (00:51)
[2017-08-20] MEDS: NS 1000 ML 1,000 ML IV SCH (00:51)
[2017-08-20] MEDS: NORCO 5/325 MG TAB PO PRN ×2 (04:23→13:23)
[2017-08-20] MEDS: ANCEF VIAL 1 GRAM 1 G in NS 100 ML IV + SPIKE MINIBAG* 100 ML IV SCH ×3 (05:10→21:00)
[2017-08-20 06:07] LABS: BASOPHILS % (AUTO) 0.2 % (0.2-1.0); EOSINOPHILS # (AUTO) 0.3 x10^3/uL (0.0-0.2); EOSINOPHILS % (AUTO) 1.7 % (0.9-2.9); HEMOGLOBIN 9.8 g/dL (12.0-16.0); LYMPHOCYTES # (AUTO) 2.6 X10^3/uL (1.3-2.9); MEAN CORPUSCULAR HGB CONC 33.7 g/dL (33.0-35.0); MEAN CORPUSCULAR VOLUME 86.1 fL (80.0-100.0); MEAN PLATELET VOLUME 10.1 fL (7.4-11.0); MONOCYTES # (AUTO) 1.2 x10^3/uL (0.3-0.8); MONOCYTES % (AUTO) 7.7 % (0.0-13.0); NEUTROPHILS # (AUTO) 12.1 x10^3/uL (2.2-4.8); NEUTROPHILS % (AUTO) 74.4 % (42.0-75.0); PLATELET COUNT 333 X10^3/uL (150.0-450.0); RED BLOOD COUNT 3.36 X10^6/uL (3.5-5.4); RED CELL DISTRIBUTION WIDTH 14.7 % (11.6-16.5); WHITE BLOOD COUNT 16.2 X10^3/uL (3.6-10.0)
[2017-08-20 06:33] LABS: BLOOD UREA NITROGEN 13 mg/dL (7-18); CALCIUM 7.7 mg/dL (8.5-10.1); CARBON DIOXIDE 28.3 mmol/L (21-32); CHLORIDE 98 mmol/L (98-107); COR NA(FOR HYPERGLY) 134 mmol/L (136-145); CREATININE 0.55 mg/dL (0.55-1.02); SODIUM 132 mmol/L (136-145); eGFR NON BLACK RACES > 60 (>60)
[2017-08-20] MEDS: ROCEPHIN VIAL 1 GRAM 1 G in NS 100 ML IV + SPIKE MINIBAG* 100 ML IV SCH (08:41)
[2017-08-20] MEDS: NYSTATIN POWDER TOP SCH ×2 (08:42→20:03)
[2017-08-20] MEDS: NORVASC TAB 5 MG PO SCH (08:43)
[2017-08-20] MEDS: NORCO 5/325 MG TAB PO SCH ×2 (08:43→20:02)
--- NOTE | 2017-08-20 12:56 | RAD ---
Examination: AP chest History: Diminished lung sounds postop Comparison reference 08/15/2017 Findings: Continued upper normal heart size with dilated aorta and brachiocephalic vessels consistent with history of hypertension. Minimal fibrosis/atelectasis left costophrenic angle. No evidence for consolidation, pulmonary edema or pneumothorax. Impression: Little significant radiographic change since 08/15/2017. Reported By:
[2017-08-20] MEDS: COLACE CAP 100 MG PO SCH (20:02)
[2017-08-20] MEDS: SNACK - Diabetic Appropriate PO SCH (20:02)
[2017-08-21] MEDS: MORPHINE SULFATE INJ 2 MG INJ IVP PRN ×3 (00:15→23:57)
[2017-08-21] MEDS: NS 1000 ML 1,000 ML IV SCH (02:23)
[2017-08-21] MEDS: ANCEF VIAL 1 GRAM 1 G in NS 100 ML IV + SPIKE MINIBAG* 100 ML IV SCH ×3 (05:09→22:36)
[2017-08-21 06:21] LABS: BLOOD UREA NITROGEN 12 mg/dL (7-18); CALCIUM 7.5 mg/dL (8.5-10.1); CARBON DIOXIDE 26.6 mmol/L (21-32); CHLORIDE 98 mmol/L (98-107); COR NA(FOR HYPERGLY) 134 mmol/L (136-145); CREATININE 0.44 mg/dL (0.55-1.02); SODIUM 133 mmol/L (136-145); eGFR NON BLACK RACES > 60 (>60)
[2017-08-21 06:27] LABS: BASOPHILS % (AUTO) 0.3 % (0.2-1.0); EOSINOPHILS # (AUTO) 0.4 x10^3/uL (0.0-0.2); EOSINOPHILS % (AUTO) 2.9 % (0.9-2.9); HEMATOCRIT 27.5 % (36.0-47.0); HEMOGLOBIN 9.1 g/dL (12.0-16.0); LYMPHOCYTES # (AUTO) 2.4 X10^3/uL (1.3-2.9); LYMPHOCYTES % (AUTO) 16.5 % (21.0-51.0); MEAN CORPUSCULAR HEMOGLOBIN 28.3 pg (27.0-34.0); MEAN CORPUSCULAR VOLUME 85.9 fL (80.0-100.0); MEAN PLATELET VOLUME 10.3 fL (7.4-11.0); MONOCYTES # (AUTO) 1.1 x10^3/uL (0.3-0.8); MONOCYTES % (AUTO) 7.6 % (0.0-13.0); NEUTROPHILS # (AUTO) 10.4 x10^3/uL (2.2-4.8); NEUTROPHILS % (AUTO) 72.7 % (42.0-75.0); PLATELET COUNT 430 X10^3/uL (150.0-450.0); RED CELL DISTRIBUTION WIDTH 14.6 % (11.6-16.5); WHITE BLOOD COUNT 14.3 X10^3/uL (3.6-10.0)
[2017-08-21] MEDS: ROCEPHIN VIAL 1 GRAM 1 G in NS 100 ML IV + SPIKE MINIBAG* 100 ML IV SCH (09:04)
[2017-08-21] MEDS: NYSTATIN POWDER TOP SCH ×2 (09:05→21:30)
[2017-08-21] MEDS: NORVASC TAB 5 MG PO SCH (09:05)
[2017-08-21] MEDS: NORCO 5/325 MG TAB PO SCH ×2 (09:05→22:03)
[2017-08-21] MEDS: HumuLIN R SUBCUT PRN ×2 (11:54→16:39)
--- NOTE | 2017-08-21 12:02 | PCM.PROG ---
Progress Note - Progress Note for Day of Date: 08/20/17 - Subjective Subjective: 77WF ER ADMISSION AFTER FALL WITH CO RIGHT ARM PAIN, NAUSEA DUE TO PAIN. PT HAS FRACUTED RIGHT HUMERUS. S/P SURGICAL REPAIR, CONTINUE PAIN CONTROL AND HAS UTI, CULTURE REVEALED ECOLI, PT CURRENTLY ON IV ATBX. PT CO RUE PAIN THIS AM, CONTINUE ORTHO POST OP CARE. CXR ORDERED THIS AM FOR DIMINISHED BREATH SOUNDS. PLAN TO CONTINUE POST OP ORTHO PLAN OF CARE - Past Medical Family Social History Past Med/Fam/Surg Hx: No changes since H&P Allergies: Allergies LIZBETH Inhibitors Allergy (Verified 06/27/17 12:03) - Review of Systems ROS: No change since H&P - Vital Signs and I&O's Vital Signs: Temperature 98.6 F Pulse Rate [Left Brachial] 93 Pulse Rate 91 Respiratory Rate 20 Blood Pressure [Left Arm] 167/109 Blood Pressure 131/61 O2 Sat by Pulse Oximetry 96 Intake and Output: Intake & Output 08/18/17 08/19/17 08/20/17 08/21/17 11:59 11:59 11:59 11:59 Intake Total 840 / 840 2465 / 2465 1783 / 1783 1828 / 1828 Output Total 200 / 200 Balance 840 / 840 2265 / 2265 1783 / 1783 1828 / 1828 - Physical Exam Oriented: Normal Eyes: Normal Ear: Normal Nose: Normal Throat: Normal Respiratory: Diminished Cardiovascular: Normal : Normal Auscultation: Bowel Sounds: Normal Tenderness: Normal Skin: Decreased Turgur Musculoskeletal: Right, Shoulder, Swelling, Tender, Deformity, Instability, Crepitance (examination the RIGHT shoulder is done. Well healed old surgical scar noted. The bruising noted. Deformity noted. Abnormal mobility and Patient's noted. Distal neurovascularly intact. Patient to radial nerve intact.) Psychiatric: Normal Mood Description: Calm Speech Pattern: Clear, Appropriate - Laboratory and Diagnostics Result Diagrams: 08/21/17 05:35 08/21/17 05:35 Labs: 08/13/17 14:02 Urine,Clean Catch Urine Culture - Final Escherichia Coli Laboratory WBC 14.3 X10^3/uL (3.6-10.0) H 08/21/17 05:35 RBC 3.20 X10^6/uL (3.5-5.4) L 08/21/17 05:35 Hgb 9.1 g/dL (12.0-16.0) L 08/21/17 05:35 Hct 27.5 % (36.0-47.0) L 08/21/17 05:35 MCV 85.9 fL (80.0-100.0) 08/21/17 05:35 MCH 28.3 pg (27.0-34.0) 08/21/17 05:35 MCHC 33.0 g/dL (33.0-35.0) 08/21/17 05:35 RDW 14.6 % (11.6-16.5) 08/21/17 05:35 Plt Count 430 X10^3/uL (150.0-450.0) 08/21/17 05:35 Plt Count Comment Adequate (ADEQUATE) 08/12/17 15:40 MPV 10.3 fL (7.4-11.0) 08/21/17 05:35 Neut % (Auto) 72.7 % (42.0-75.0) 08/21/17 05:35 Lymph % (Auto) 16.5 % (21.0-51.0) L 08/21/17 05:35 [place] % (Auto) 7.6 % (0.0-13.0) 08/21/17 05:35 Eos % (Auto) 2.9 % (0.9-2.9) 08/21/17 05:35 Baso % (Auto) 0.3 % (0.2-1.0) 08/21/17 05:35 Neut # (Auto) 10.4 x10^3/uL (2.2-4.8) H 08/21/17 05:35 Lymph # (Auto) 2.4 X10^3/uL (1.3-2.9) 08/21/17 05:35 [place] # (Auto) 1.1 x10^3/uL (0.3-0.8) H 08/21/17 05:35 Eos # (Auto) 0.4 x10^3/uL (0.0-0.2) H 08/21/17 05:35 Baso # (Auto) 0.0 X10^3/uL (0.0-0.1) 08/21/17 05:35 Absolute Nucleated RBC 0.1 /100WBC 08/21/17 05:35 Total Counted 100 08/12/17 15:40 Neutrophils % (Manual) 88 % (39-76) H 08/12/17 15:40 Band Neutrophils % 2 % (0-10) 08/12/17 15:40 Lymphocytes % (Manual) 5 % (13-43) L 08/12/17 15:40 Monocytes % (Manual) 4 % (4-9) 08/12/17 15:40 Eosinophils % (Manual) 1 % (0-6) 08/12/17 15:40 Plt Morphology Comment Normal (NORMAL) 08/12/17 15:40 RBC Morphology Normal (NORMAL) 08/12/17 15:40 Sodium 133 mmol/L (136-145) L 08/21/17 05:35 Corrected Sodium 134 mmol/L (136-145) L 08/21/17 05:35 Potassium 3.8 mmol/L (3.5-5.1) 08/21/17 05:35 Chloride 98 mmol/L (98-107) 08/21/17 05:35 Carbon Dioxide 26.6 mmol/L (21-32) 08/21/17 05:35 BUN 12 mg/dL (7-18) 08/21/17 05:35 Creatinine 0.44 mg/dL (0.55-1.02) L 08/21/17 05:35 Est GFR (MDRD) Af Amer > 60 (>60) 08/21/17 05:35 Est GFR (MDRD) Non-Af > 60 (>60) 08/21/17 05:35 Glucose 149 mg/dL (65-99) H 08/21/17 05:35 POC Glucose (mg/dL) 176 mg/dL (65-99) H 08/18/17 06:15 Calcium 7.5 mg/dL (8.5-10.1) L 08/21/17 05:35 Corrected Calcium 9.2 mg/dL (8.5-10.1) 08/18/17 04:53 Magnesium 2.2 mg/dL (1.7-2.9) 08/15/17 04:30 Total Bilirubin 0.30 mg/dL (0.2-1.0) 08/18/17 04:53 AST 12 Units/L (15-37) L 08/18/17 04:53 ALT 16 Units/L (12-78) 08/18/17 04:53 Alkaline Phosphatase 115 Units/L (46-116) 08/18/17 04:53 Total Protein 6.6 g/dL (6.4-8.2) 08/18/17 04:53 Albumin 2.3 g/dL (3.4-5.0) L 08/18/17 04:53 Globulin 4.3 g/dL (2.5-4.5) 08/18/17 04:53 Albumin/Globulin Ratio 0.5 Ratio (1.1-2.1) L 08/18/17 04:53 Specimen Type Clean catch urine 08/13/17 14:02 Urine Color Yellow (YELLOW) 08/13/17 14:02 Urine Appearance Cloudy (CLEAR) 08/13/17 14:02 Urine pH 6.0 (5.0 - 8.0) 08/13/17 14:02 Ur Specific [place] 1.020 (1.000-1.030) 08/13/17 14:02 Urine Protein 3+ (NEGATIVE) 08/13/17 14:02 Urine Glucose (UA) 3+ (NEGATIVE) 08/13/17 14:02 Urine Ketones 2+ (NEGATIVE) 08/13/17 14:02 Urine Occult Blood 4+ (NEGATIVE) 08/13/17 14:02 Urine Nitrite Positive (NEGATIVE) 08/13/17 14:02 Urine Bilirubin Negative (NEGATIVE) 08/13/17 14:02 Urine Urobilinogen Normal (NORMAL) 08/13/17 14:02 Ur Leukocyte Esterase 3+ (NEGATIVE) 08/13/17 14:02 Urine RBC 30-50 /HPF (NONE SEEN) 08/13/17 14:02 Urine WBC Tntc /HPF (NONE SEEN) 08/13/17 14:02 Ur Squamous Epith Cells Few /HPF (NEGATIVE) 08/13/17 14:02 Urine Bacteria 3+ /HPF (NEGATIVE) 08/13/17 14:02 Urine Mucus Few /HPF (NEGATIVE) 08/13/17 14:02 Ur Culture Indicated? Yes/culture set up 08/13/17 14:02 - Plan (1) Right humeral fracture Status: Acute Qualifiers: Encounter type: initial encounter Humerus Location: shaft Fracture type: closed Fracture morphology: spiral Fracture alignment: displaced Qualified Code(s): S42.341A - Displaced spiral fracture of shaft of humerus, right arm, initial encounter for closed fracture Plan: RIGHT SHOULDER IMMOBILIZER, S/P SURGICAL INTERVENTION,. PAIN AND [place] CONTROL, POST OP CARE INSTRUCTIONS (2) Intractable pain Status: Acute (3) Diabetes Status: Acute (4) Fall Status: Acute (5) UTI (urinary tract infection) Status: Acute Plan: ENCOURAGE HYDRATION. IV ATBX THERAPY
[2017-08-21] MEDS: NORCO 5/325 MG TAB PO PRN (15:11)
--- NOTE | 2017-08-21 17:54 | PCM.PROG ---
Progress Note - Progress Note for Day of Date: 08/21/17 - Subjective Subjective: 77WF ER ADMISSION AFTER FALL WITH CO RIGHT ARM PAIN, NAUSEA DUE TO PAIN. PT HAS FRACUTED RIGHT HUMERUS. S/P SURGICAL REPAIR, CONTINUE PAIN CONTROL AND HAS UTI, CULTURE REVEALED ECOLI, PT CURRENTLY ON IV ATBX. PHYSICAL THERAPY IN WITH PT THIS AM, TOLERATED PT WELL, STATES PAIN IS CONTROLLED AT THIS TIME - Past Medical Family Social History Past Med/Fam/Surg Hx: No changes since H&P Allergies: Allergies LIZBETH Inhibitors Allergy (Verified 06/27/17 12:03) - Review of Systems ROS: No change since H&P - Vital Signs and I&O's Vital Signs: Temperature 98.6 F Pulse Rate [Left Brachial] 80 Pulse Rate 91 Respiratory Rate 20 Blood Pressure [Left Arm] 149/67 Blood Pressure 131/61 O2 Sat by Pulse Oximetry 92 Intake and Output: Intake & Output 08/19/17 08/20/17 08/21/17 08/22/17 11:59 11:59 11:59 11:59 Intake Total 2465 / 2465 1783 / 1783 1828 / 1828 150 / 150 Output Total 200 / 200 Balance 2265 / 2265 1783 / 1783 1828 / 1828 150 / 150 - Physical Exam Oriented: Normal Eyes: Normal Ear: Normal Nose: Normal Throat: Normal Respiratory: Diminished Cardiovascular: Normal : Normal Auscultation: Bowel Sounds: Normal Tenderness: Normal Skin: Decreased Turgur Musculoskeletal: Right, Shoulder, Swelling, Tender, Deformity, Instability, Crepitance (examination the RIGHT shoulder is done. Well healed old surgical scar noted. The bruising noted. Deformity noted. Abnormal mobility and Patient's noted. Distal neurovascularly intact. Patient to radial nerve intact.) Psychiatric: Normal Mood Description: Calm Speech Pattern: Clear, Appropriate - Laboratory and Diagnostics Result Diagrams: 08/21/17 05:35 08/21/17 05:35 Labs: 08/13/17 14:02 Urine,Clean Catch Urine Culture - Final Escherichia Coli Laboratory WBC 14.3 X10^3/uL (3.6-10.0) H 08/21/17 05:35 RBC 3.20 X10^6/uL (3.5-5.4) L 08/21/17 05:35 Hgb 9.1 g/dL (12.0-16.0) L 08/21/17 05:35 Hct 27.5 % (36.0-47.0) L 08/21/17 05:35 MCV 85.9 fL (80.0-100.0) 08/21/17 05:35 MCH 28.3 pg (27.0-34.0) 08/21/17 05:35 MCHC 33.0 g/dL (33.0-35.0) 08/21/17 05:35 RDW 14.6 % (11.6-16.5) 08/21/17 05:35 Plt Count 430 X10^3/uL (150.0-450.0) 08/21/17 05:35 Plt Count Comment Adequate (ADEQUATE) 08/12/17 15:40 MPV 10.3 fL (7.4-11.0) 08/21/17 05:35 Neut % (Auto) 72.7 % (42.0-75.0) 08/21/17 05:35 Lymph % (Auto) 16.5 % (21.0-51.0) L 08/21/17 05:35 [place] % (Auto) 7.6 % (0.0-13.0) 08/21/17 05:35 Eos % (Auto) 2.9 % (0.9-2.9) 08/21/17 05:35 Baso % (Auto) 0.3 % (0.2-1.0) 08/21/17 05:35 Neut # (Auto) 10.4 x10^3/uL (2.2-4.8) H 08/21/17 05:35 Lymph # (Auto) 2.4 X10^3/uL (1.3-2.9) 08/21/17 05:35 [place] # (Auto) 1.1 x10^3/uL (0.3-0.8) H 08/21/17 05:35 Eos # (Auto) 0.4 x10^3/uL (0.0-0.2) H 08/21/17 05:35 Baso # (Auto) 0.0 X10^3/uL (0.0-0.1) 08/21/17 05:35 Absolute Nucleated RBC 0.1 /100WBC 08/21/17 05:35 Total Counted 100 05/26/18 15:40 Neutrophils % (Manual) 88 % (39-76) H 08/12/17 15:40 Band Neutrophils % 2 % (0-10) 08/12/17 15:40 Lymphocytes % (Manual) 5 % (13-43) L 08/12/17 15:40 Monocytes % (Manual) 4 % (4-9) 08/12/17 15:40 Eosinophils % (Manual) 1 % (0-6) 08/12/17 15:40 Plt Morphology Comment Normal (NORMAL) 08/12/17 15:40 RBC Morphology Normal (NORMAL) 08/12/17 15:40 Sodium 133 mmol/L (136-145) L 08/21/17 05:35 Corrected Sodium 134 mmol/L (136-145) L 08/21/17 05:35 Potassium 3.8 mmol/L (3.5-5.1) 08/21/17 05:35 Chloride 98 mmol/L (98-107) 08/21/17 05:35 Carbon Dioxide 26.6 mmol/L (21-32) 08/21/17 05:35 BUN 12 mg/dL (7-18) 08/21/17 05:35 Creatinine 0.44 mg/dL (0.55-1.02) L 08/21/17 05:35 Est GFR (MDRD) Af Amer > 60 (>60) 08/21/17 05:35 Est GFR (MDRD) Non-Af > 60 (>60) 08/21/17 05:35 Glucose 149 mg/dL (65-99) H 08/21/17 05:35 POC Glucose (mg/dL) 176 mg/dL (65-99) H 08/18/17 06:15 Calcium 7.5 mg/dL (8.5-10.1) L 08/21/17 05:35 Corrected Calcium 9.2 mg/dL (8.5-10.1) 08/18/17 04:53 Magnesium 2.2 mg/dL (1.7-2.9) 08/15/17 04:30 Total Bilirubin 0.30 mg/dL (0.2-1.0) 08/18/17 04:53 AST 12 Units/L (15-37) L 08/18/17 04:53 ALT 16 Units/L (12-78) 08/18/17 04:53 Alkaline Phosphatase 115 Units/L (46-116) 08/18/17 04:53 Total Protein 6.6 g/dL (6.4-8.2) 08/18/17 04:53 Albumin 2.3 g/dL (3.4-5.0) L 08/18/17 04:53 Globulin 4.3 g/dL (2.5-4.5) 08/18/17 04:53 Albumin/Globulin Ratio 0.5 Ratio (1.1-2.1) L 08/18/17 04:53 Specimen Type Clean catch urine 08/13/17 14:02 Urine Color Yellow (YELLOW) 08/13/17 14:02 Urine Appearance Cloudy (CLEAR) 08/13/17 14:02 Urine pH 6.0 (5.0 - 8.0) 08/13/17 14:02 Ur Specific [place] 1.020 (1.000-1.030) 08/13/17 14:02 Urine Protein 3+ (NEGATIVE) 08/13/17 14:02 Urine Glucose (UA) 3+ (NEGATIVE) 08/13/17 14:02 Urine Ketones 2+ (NEGATIVE) 08/13/17 14:02 Urine Occult Blood 4+ (NEGATIVE) 08/13/17 14:02 Urine Nitrite Positive (NEGATIVE) 08/13/17 14:02 Urine Bilirubin Negative (NEGATIVE) 08/13/17 14:02 Urine Urobilinogen Normal (NORMAL) 08/13/17 14:02 Ur Leukocyte Esterase 3+ (NEGATIVE) 08/13/17 14:02 Urine RBC 30-50 /HPF (NONE SEEN) 08/13/17 14:02 Urine WBC Tntc /HPF (NONE SEEN) 08/13/17 14:02 Ur Squamous Epith Cells Few /HPF (NEGATIVE) 08/13/17 14:02 Urine Bacteria 3+ /HPF (NEGATIVE) 08/13/17 14:02 Urine Mucus Few /HPF (NEGATIVE) 08/13/17 14:02 Ur Culture Indicated? Yes/culture set up 08/13/17 14:02 - Plan (1) Right humeral fracture Status: Acute Qualifiers: Encounter type: initial encounter Humerus Location: shaft Fracture type: closed Fracture morphology: spiral Fracture alignment: displaced Qualified Code(s): S42.341A - Displaced spiral fracture of shaft of humerus, right arm, initial encounter for closed fracture Plan: RIGHT SHOULDER IMMOBILIZER, S/P SURGICAL INTERVENTION,. PAIN AND [place] CONTROL, POST OP CARE INSTRUCTIONS. CONSULT CASE MANAGEMENT FOR PLANS FOR REHAB OR HOME THERAPY (2) Intractable pain Status: Acute (3) Diabetes Status: Acute (4) Fall Status: Acute (5) UTI (urinary tract infection) Status: Acute Plan: ENCOURAGE HYDRATION. IV ATBX THERAPY
[2017-08-21] MEDS: SNACK - Diabetic Appropriate PO SCH (20:30)
[2017-08-21] MEDS: COLACE CAP 100 MG PO SCH (22:03)
[2017-08-22] MEDS: ANCEF VIAL 1 GRAM 1 G in NS 100 ML IV + SPIKE MINIBAG* 100 ML IV SCH ×2 (05:53→14:10)
[2017-08-22] MEDS: NORVASC TAB 5 MG PO SCH (10:15)
[2017-08-22] MEDS: NORCO 5/325 MG TAB PO SCH (10:15)
[2017-08-22] MEDS: NYSTATIN POWDER TOP SCH (10:15)
[2017-08-22] MEDS: ROCEPHIN VIAL 1 GRAM 1 G in NS 100 ML IV + SPIKE MINIBAG* 100 ML IV SCH (10:16)
[2017-08-22] MEDS ORDERED: MILK OF MAGNESIA PO SCH (12:00)
[2017-08-22 16:27] VITALS: BP 170/91
[2017-08-22] MEDS ORDERED: COLACE CAP 100 MG PO SCH (21:00)
--- NOTE | 2017-08-23 14:55 | OR.GENERIC ---
Post-Op Note Generic - Post-Op Note Operative Report: preoperative diagnosis-left humerus shaft fracture, closed, Postoperative diagnosis-left humerus shaft fracture, closed Procedure- 1. LEFT humerus implant removal, deep, proximal humerus plate 2. left humerus shaft open reduction and fixation with plates and screws Date of surgery- 08/18/2017 Indication-patient is a 77 year-old female with history of fall at home and fractured left humerus. She had proximal humerus fracture which was treated with open reduction during fixation 2 months ago. She went to a [facility] and secured well and went home. At home she had a new fall and a fractured or the humeral shaft below the plate. The proximal humerus had healed. Natural history and discussions were done with them. The patient and his son recommended that they proceed with an open reduction total fixation. A consultation was placed for me. Natural history treatment discussions were done with them. She will proceed with open reduction internal fixation. The risks and benefits were discussed with her. Complications including but not limited to infection, osteomyelitis, stiffness of the shoulder, nonunion, malunion, wrist drop, deltoid weakness, persistent pain, need for further procedure. These appear complications which were discussed with her. She consented for the procedure. Preoperative-patient was seen in the preop holding area. The left upper limb was marked. She got and supraclavicular block by the network program manager. We again revisited the consent. antibiotic was given within one hour of the surgical incision. Procedure- #1. Implant removal, removal of deep proximal humerus plate. patient was brought to the operating room. Patient was placed supine on the operating table. Gen. anesthesia was induced and successful endotracheal intubation was completed. She was placed in 15 of beachchair position. C-arm was brought in from the patient's head side and a provisional reduction was achieved. The reduction was unstable. The left upper limb was prepped and draped. An anterolateral approach to the proximal humerus was used. the incision was extended proximally in the deltopectoral approach. Dissection carried down to expose the cephalic vein.cephalic vein was mobilized and was retracted medially throughout the procedure. The deltoid was retracted laterally and the pectoralis major was retracted medially. Dissection carried down to expose the subscapularis and the capsule. The limb was rotated to expose the anterolateral aspect of the proximal humerus. The scar noted on and around the proximal humerus plate. Using the BOVIE the scar was mobilized exposing the plate. The fracture was assessed and was found to be completely healed. Surgery was decided to proceed with removal of the implant. Proximal locking screws as well as distal locking and nonlocking screws were taken out. Thorough irrigation was done. #2. Open reduction and fixation. Humeral shaftwith plates and screws. Implant used ANA MARÍA proximal humerus plate 14 hole. the incision was carried down distally and was curved distally to be on the lateral aspect of the arm. Distally the dissection was carried down through the subcutaneous tissue to expose the lateral border of the biceps. Deep dissection carried down lateral to the biceps exposing the the humerus. Distally the radial nerve was identified and protected throughout the procedure. The fracture site was exposed. t was a long spiral fracture. Hematoma was evacuated and the medullary canal was opened and the F fracture edges was freshened. The fracture was reduced by direct manipulation using the lobster claw clamps. Reduction was achieved and was found to be anatomical. It is held in place multiple point reduction clamps as well as a bone-holding clamp. It was decided to proceed withlag screw fixation of the fracture. 2.8 mm drill was used to drill both near and far cortex. Over drilling was completed with a 3.5 mm drillproximally/near cortex. Appropriate size screw was measured and was placed in an lag screw mode. A similar steps were repeated in the middle as well as the distal 3rd of THE fracture. Adequate compression and approximation was noted at the fracture site. Alignment was anatomical. At this time all the point reduction clamp as well as a bone-holding clamps were taken out. An appropriate 14 holed plate was chosen and was templated against the humerus. the plate was contoured to fit the bone properly.The plate was passed submuscular and extraperiosteal. It was fixed distally with a K wire. It was made sure that there is no radial nerve entrapment and the plate was deep to the nerve. Multiple K wires were placed proximally. The insertion of the deltoid was split to allow the plate to slide and accommodate the plate. The plate was fixed distally with an nonlocking screw. It was made sure that the plate was sitting central to the shaft. multiple locking screws were placed in the proximal part of the plate. It was checked to confirm appropriate reduction as well as plate fixation. Multiple locking bicortical screws were placed distally. A total of 8 cortices were placed distally. Proximally multiple were placed and fixed to the plate. The rest of the proximal holes were fixed with unicortical locking screws. Thorough irrigation was done. Wound was closed in layers. [place] were applied. Sterile dressing was applied. Postoperative-patient was woken up from the surgery. Patient was successfully extubated. Patient will shift to the PACU. Her vitals were stable. Pain was well-controlled. The family was updated about the procedure. Postoperative images were obtained. Well aligned and satisfactory reduction. Patient will be admitted and instructions will be discussed with them.
--- NOTE | 2017-09-12 22:18 | PCM.PROG ---
Progress Note - Progress Note for Day of Date: 08/14/17 - Subjective Subjective: Pt had surgery on her arm 06/19/17 for right proximal humerus fx that was broken in three places. Pt was in Rehab in [place]. Pt was released from [place] this morning and tripped on stairs at home and fell and son states he heard a "pop" in her right arm. Patient had a displaced spiral fracture. Patient continues to have pain. Does feel weak. No other complaints voiced. - Past Medical Family Social History Past Med/Fam/Surg Hx: No changes since H&P Allergies: Allergies LIZBETH Inhibitors Allergy (Verified 06/27/17 12:03) - Review of Systems ROS: No change since H&P - Vital Signs and I&O's Vital Signs: Temperature 99.1 F Pulse Rate [Left Brachial] 78 Pulse Rate 88 Respiratory Rate 16 Blood Pressure [Left Arm] 170/91 Blood Pressure 131/61 O2 Sat by Pulse Oximetry 96 - Physical Exam Oriented: Normal Eyes: Normal Ear: Normal Nose: Normal Throat: Normal Respiratory: Diminished Cardiovascular: Normal : Normal Auscultation: Bowel Sounds: Normal Tenderness: Normal Skin: Decreased Turgur Musculoskeletal: Right, Shoulder, Swelling, Tender, Deformity, Instability, Crepitance (examination the RIGHT shoulder is done. Well healed old surgical scar noted. The bruising noted. Deformity noted. Abnormal mobility and Patient's noted. Distal neurovascularly intact. Patient to radial nerve intact.) Psychiatric: Normal Mood Description: Calm Affect: Normal Speech Pattern: Clear, Appropriate - Laboratory and Diagnostics Result Diagrams: 08/21/17 05:35 08/21/17 05:35 Labs: 08/13/17 14:02 Urine,Clean Catch Urine Culture - Final Escherichia Coli Laboratory WBC 14.3 X10^3/uL (3.6-10.0) H 08/21/17 05:35 RBC 3.20 X10^6/uL (3.5-5.4) L 08/21/17 05:35 Hgb 9.1 g/dL (12.0-16.0) L 08/21/17 05:35 Hct 27.5 % (36.0-47.0) L 08/21/17 05:35 MCV 85.9 fL (80.0-100.0) 08/21/17 05:35 MCH 28.3 pg (27.0-34.0) 08/21/17 05:35 MCHC 33.0 g/dL (33.0-35.0) 08/21/17 05:35 RDW 14.6 % (11.6-16.5) 08/21/17 05:35 Plt Count 430 X10^3/uL (150.0-450.0) 08/21/17 05:35 Plt Count Comment Adequate (ADEQUATE) 08/12/17 15:40 MPV 10.3 fL (7.4-11.0) 08/21/17 05:35 Neut % (Auto) 72.7 % (42.0-75.0) 08/21/17 05:35 Lymph % (Auto) 16.5 % (21.0-51.0) L 08/21/17 05:35 [place] % (Auto) 7.6 % (0.0-13.0) 08/21/17 05:35 Eos % (Auto) 2.9 % (0.9-2.9) 08/21/17 05:35 Baso % (Auto) 0.3 % (0.2-1.0) 08/21/17 05:35 Neut # (Auto) 10.4 x10^3/uL (2.2-4.8) H 08/21/17 05:35 Lymph # (Auto) 2.4 X10^3/uL (1.3-2.9) 08/21/17 05:35 [place] # (Auto) 1.1 x10^3/uL (0.3-0.8) H 08/21/17 05:35 Eos # (Auto) 0.4 x10^3/uL (0.0-0.2) H 08/21/17 05:35 Baso # (Auto) 0.0 X10^3/uL (0.0-0.1) 08/21/17 05:35 Absolute Nucleated RBC 0.1 /100WBC 08/21/17 05:35 Total Counted 100 08/12/17 15:40 Neutrophils % (Manual) 88 % (39-76) H 08/12/17 15:40 Band Neutrophils % 2 % (0-10) 08/12/17 15:40 Lymphocytes % (Manual) 5 % (13-43) L 08/12/17 15:40 Monocytes % (Manual) 4 % (4-9) 08/12/17 15:40 Eosinophils % (Manual) 1 % (0-6) 08/12/17 15:40 Plt Morphology Comment Normal (NORMAL) 08/12/17 15:40 RBC Morphology Normal (NORMAL) 08/12/17 15:40 Sodium 133 mmol/L (136-145) L 08/21/17 05:35 Corrected Sodium 134 mmol/L (136-145) L 08/21/17 05:35 Potassium 3.8 mmol/L (3.5-5.1) 08/21/17 05:35 Chloride 98 mmol/L (98-107) 08/21/17 05:35 Carbon Dioxide 26.6 mmol/L (21-32) 08/21/17 05:35 BUN 12 mg/dL (7-18) 08/21/17 05:35 Creatinine 0.44 mg/dL (0.55-1.02) L 08/21/17 05:35 Est GFR (MDRD) Af Amer > 60 (>60) 08/21/17 05:35 Est GFR (MDRD) Non-Af > 60 (>60) 08/21/17 05:35 Glucose 149 mg/dL (65-99) H 08/21/17 05:35 POC Glucose (mg/dL) 176 mg/dL (65-99) H 08/18/17 06:15 Calcium 7.5 mg/dL (8.5-10.1) L 08/21/17 05:35 Corrected Calcium 9.2 mg/dL (8.5-10.1) 08/18/17 04:53 Magnesium 2.2 mg/dL (1.7-2.9) 08/15/17 04:30 Total Bilirubin 0.30 mg/dL (0.2-1.0) 08/18/17 04:53 AST 12 Units/L (15-37) L 08/18/17 04:53 ALT 16 Units/L (12-78) 08/18/17 04:53 Alkaline Phosphatase 115 Units/L (46-116) 08/18/17 04:53 Total Protein 6.6 g/dL (6.4-8.2) 08/18/17 04:53 Albumin 2.3 g/dL (3.4-5.0) L 08/18/17 04:53 Globulin 4.3 g/dL (2.5-4.5) 08/18/17 04:53 Albumin/Globulin Ratio 0.5 Ratio (1.1-2.1) L 08/18/17 04:53 Specimen Type Clean catch urine 08/13/17 14:02 Urine Color Yellow (YELLOW) 08/13/17 14:02 Urine Appearance Cloudy (CLEAR) 08/13/17 14:02 Urine pH 6.0 (5.0 - 8.0) 08/13/17 14:02 Ur Specific [place] 1.020 (1.000-1.030) 08/13/17 14:02 Urine Protein 3+ (NEGATIVE) 08/13/17 14:02 Urine Glucose (UA) 3+ (NEGATIVE) 08/13/17 14:02 Urine Ketones 2+ (NEGATIVE) 08/13/17 14:02 Urine Occult Blood 4+ (NEGATIVE) 08/13/17 14:02 Urine Nitrite Positive (NEGATIVE) 08/13/17 14:02 Urine Bilirubin Negative (NEGATIVE) 08/13/17 14:02 Urine Urobilinogen Normal (NORMAL) 08/13/17 14:02 Ur Leukocyte Esterase 3+ (NEGATIVE) 08/13/17 14:02 Urine RBC 30-50 /HPF (NONE SEEN) 08/13/17 14:02 Urine WBC Tntc /HPF (NONE SEEN) 08/13/17 14:02 Ur Squamous Epith Cells Few /HPF (NEGATIVE) 08/13/17 14:02 Urine Bacteria 3+ /HPF (NEGATIVE) 08/13/17 14:02 Urine Mucus Few /HPF (NEGATIVE) 08/13/17 14:02 Ur Culture Indicated? Yes/culture set up 08/13/17 14:02 - Plan (1) Contusion of right shoulder Status: Acute Qualifiers: Encounter type: initial encounter Qualified Code(s): S40.011A - Contusion of right shoulder, initial encounter (2) Diabetes Status: Acute Plan: MONITOR BS (3) Fall Status: Acute (4) Intractable pain Status: Acute Plan: MONITOR PAIN. MEDICATE NEEDED. (5) Right humeral fracture Status: Acute Qualifiers: Encounter type: initial encounter Humerus Location: shaft Fracture type: closed Fracture morphology: spiral Fracture alignment: displaced Qualified Code(s): S42.341A - Displaced spiral fracture of shaft of humerus, right arm, initial encounter for closed fracture Plan: RIGHT SHOULDER IMMOBILIZER, ORTHO CONSULT. (6) UTI (urinary tract infection) Status: Acute Plan: ENCOURAGE HYDRATION. IV ATBX THERAPY
--- NOTE | 2017-09-12 22:22 | PCM.DCPLAN ---
Discharge Summary - Admission Date Date of Admission: 08/14/17 - Discharge Date Discharge Date: 08/22/17 - Admission Diagnoses (1) Contusion of right shoulder Status: Acute (2) Diabetes Status: Acute (3) Fall Status: Acute (4) Intractable pain Status: Acute (5) Right humeral fracture Status: Acute (6) UTI (urinary tract infection) Status: Acute - Discharge Diagnoses Discharge Diagnosis: same as admission diagnosis - Discharge Medications Discharge Medications: Home Medication List hydrocodone-acetaminophen 1 tab PO BID 08/13/17 [History] tramadol 1 tab PO TID PRN 08/13/17 [History] Prescriptions: - Hospital Course Vital Signs: Temperature 99.1 F Pulse Rate [Left Brachial] 78 Pulse Rate 88 Respiratory Rate 16 Blood Pressure [Left Arm] 170/91 Blood Pressure 131/61 O2 Sat by Pulse Oximetry 96 Latest Lab Results: Laboratory Last Values WBC 14.3 X10^3/uL (3.6-10.0) H 08/21/17 05:35 RBC 3.20 X10^6/uL (3.5-5.4) L 08/21/17 05:35 Hgb 9.1 g/dL (12.0-16.0) L 08/21/17 05:35 Hct 27.5 % (36.0-47.0) L 08/21/17 05:35 MCV 85.9 fL (80.0-100.0) 08/21/17 05:35 MCH 28.3 pg (27.0-34.0) 08/21/17 05:35 MCHC 33.0 g/dL (33.0-35.0) 08/21/17 05:35 RDW 14.6 % (11.6-16.5) 08/21/17 05:35 Plt Count 430 X10^3/uL (150.0-450.0) 08/21/17 05:35 Plt Count Comment Adequate (ADEQUATE) 08/12/17 15:40 MPV 10.3 fL (7.4-11.0) 08/21/17 05:35 Neut % (Auto) 72.7 % (42.0-75.0) 08/21/17 05:35 Lymph % (Auto) 16.5 % (21.0-51.0) L 08/21/17 05:35 [place] % (Auto) 7.6 % (0.0-13.0) 08/21/17 05:35 Eos % (Auto) 2.9 % (0.9-2.9) 08/21/17 05:35 Baso % (Auto) 0.3 % (0.2-1.0) 08/21/17 05:35 Neut # (Auto) 10.4 x10^3/uL (2.2-4.8) H 08/21/17 05:35 Lymph # (Auto) 2.4 X10^3/uL (1.3-2.9) 08/21/17 05:35 [place] # (Auto) 1.1 x10^3/uL (0.3-0.8) H 08/21/17 05:35 Eos # (Auto) 0.4 x10^3/uL (0.0-0.2) H 08/21/17 05:35 Baso # (Auto) 0.0 X10^3/uL (0.0-0.1) 08/21/17 05:35 Absolute Nucleated RBC 0.1 /100WBC 08/21/17 05:35 Total Counted 100 08/12/17 15:40 Neutrophils % (Manual) 88 % (39-76) H 08/12/17 15:40 Band Neutrophils % 2 % (0-10) 08/12/17 15:40 Lymphocytes % (Manual) 5 % (13-43) L 08/12/17 15:40 Monocytes % (Manual) 4 % (4-9) 08/12/17 15:40 Eosinophils % (Manual) 1 % (0-6) 08/12/17 15:40 Plt Morphology Comment Normal (NORMAL) 08/12/17 15:40 RBC Morphology Normal (NORMAL) 08/12/17 15:40 Sodium 133 mmol/L (136-145) L 08/21/17 05:35 Corrected Sodium 134 mmol/L (136-145) L 08/21/17 05:35 Potassium 3.8 mmol/L (3.5-5.1) 08/21/17 05:35 Chloride 98 mmol/L (98-107) 08/21/17 05:35 Carbon Dioxide 26.6 mmol/L (21-32) 08/21/17 05:35 BUN 12 mg/dL (7-18) 08/21/17 05:35 Creatinine 0.44 mg/dL (0.55-1.02) L 08/21/17 05:35 Est GFR (MDRD) Af Amer > 60 (>60) 08/21/17 05:35 Est GFR (MDRD) Non-Af > 60 (>60) 08/21/17 05:35 Glucose 149 mg/dL (65-99) H 08/21/17 05:35 POC Glucose (mg/dL) 176 mg/dL (65-99) H 08/18/17 06:15 Calcium 7.5 mg/dL (8.5-10.1) L 08/21/17 05:35 Corrected Calcium 9.2 mg/dL (8.5-10.1) 08/18/17 04:53 Magnesium 2.2 mg/dL (1.7-2.9) 08/15/17 04:30 Total Bilirubin 0.30 mg/dL (0.2-1.0) 08/18/17 04:53 AST 12 Units/L (15-37) L 08/18/17 04:53 ALT 16 Units/L (12-78) 08/18/17 04:53 Alkaline Phosphatase 115 Units/L (46-116) 08/18/17 04:53 Total Protein 6.6 g/dL (6.4-8.2) 08/18/17 04:53 Albumin 2.3 g/dL (3.4-5.0) L 08/18/17 04:53 Globulin 4.3 g/dL (2.5-4.5) 08/18/17 04:53 Albumin/Globulin Ratio 0.5 Ratio (1.1-2.1) L 08/18/17 04:53 Specimen Type Clean catch urine 08/13/17 14:02 Urine Color Yellow (YELLOW) 08/13/17 14:02 Urine Appearance Cloudy (CLEAR) 08/13/17 14:02 Urine pH 6.0 (5.0 - 8.0) 08/13/17 14:02 Ur Specific [place] 1.020 (1.000-1.030) 08/13/17 14:02 Urine Protein 3+ (NEGATIVE) 08/13/17 14:02 Urine Glucose (UA) 3+ (NEGATIVE) 08/13/17 14:02 Urine Ketones 2+ (NEGATIVE) 08/13/17 14:02 Urine Occult Blood 4+ (NEGATIVE) 08/13/17 14:02 Urine Nitrite Positive (NEGATIVE) 08/13/17 14:02 Urine Bilirubin Negative (NEGATIVE) 08/13/17 14:02 Urine Urobilinogen Normal (NORMAL) 08/13/17 14:02 Ur Leukocyte Esterase 3+ (NEGATIVE) 08/13/17 14:02 Urine RBC 30-50 /HPF (NONE SEEN) 08/13/17 14:02 Urine WBC Tntc /HPF (NONE SEEN) 08/13/17 14:02 Ur Squamous Epith Cells Few /HPF (NEGATIVE) 08/13/17 14:02 Urine Bacteria 3+ /HPF (NEGATIVE) 08/13/17 14:02 Urine Mucus Few /HPF (NEGATIVE) 08/13/17 14:02 Ur Culture Indicated? Yes/culture set up 08/13/17 14:02 Hospital Course: Pt had surgery on her arm 06/19/17 for right proximal humerus fx that was broken in three places. Pt was in Rehab in [place]. On the morning shew was released, Pt tripped on stairs at home and fell. Patient had a spiral fracture below recent repair. Patient was seen by Ortho and did have surgical repair. Patient noted to have UTI and IV antibiotics were administered. Pain was managed. Patient was discharged home to be followed in op basis. - Discharge Plan Disposition: HOME HEALTH SERVICE Condition: Stable - Follow ups/Referrals [facility]Ref[facility] [Other] TRUDY CASTAÑEDA [STAFF PHYSICIAN] - 09/01/17 10:40 am JENNIFFER QUINTANILLA [Nurse Practitioner] - 08/29/17 2:00 pm - Instructions Instructions: Humerus Fracture Treated With ORIF, Care After, Antibiotic Medicine, Adult, [id number], Urinary Tract Infection, Adult, [id number], Pain Medicine Instructions, [id number], Fall Prevention in Hospitals, Adult, Diabetes Mellitus and Nutrition Additional Instructions: FOLLOW UP WITH DR. CASTAÑEDA IN 6 WEEKS. DRESSING CHANGE WEEKLY. SUTURE REMOVAL IN 3 WEEKS FROM DATE OF SURGERY. PHYSICAL THERAPY DIRECTED. Forms: Patient Portal
== END 2017-08-22 16:36 | disposition home health service (06) | DRG 493 ==
LOC: ER 14:26 → MED/SURG 17:09 → OBSVTOIN 08-14 12:00
PROVIDERS: ADMIT Internal Medicine; ATTEND Internal Medicine
PROC: ORIFHUM (2017-08-18 13:45)
DX: N39.0 Urinary tract infection, site not specified; S40.011A Contusion of right shoulder, initial encounter; E11.65 Type 2 diabetes mellitus with hyperglycemia; R52 Pain, unspecified; W18.39XA Other fall on same level, initial encounter; R26.89 Other abnormalities of gait and mobility; S42.341A Displaced spiral fracture of shaft of humerus, right arm, initial encounter for closed fracture; B96.29 Other Escherichia coli [E. coli] as the cause of diseases classified elsewhere
CPT/HCPCS: 36415; 71010; 71045; 73030; 73060; 80048; 80053; 81001; 83735; 84132; 85025; 87086; 87088; 87186; 93005; 93010; 94760; 94762; 96365; 97110; 97163; 97167; 97530; 97535; 99100; 99283; 99284; A4216; A4222; G8978; G8979; G8987; G8988; Q0177; S0020; G0378; J0330; J0690; J0696; J1170; J1815; J2270; J2405; J2704; J2710; J3010; J3475; J3480; J3490; J7030; J7050; J7120